=== PATIENT | female | born 1995 | race African-American/Black ===

== ENCOUNTER 2023-01-23 08:19 | Emergency (ER) | payer SELFPAY ==
--- OUTSIDE RECORDS SUMMARY | 2023-01-23 08:25 | XMS REPORT | Continuity of Care Document ---
:1995 Author Organization [facility] t Address [address] [place] [address] Care Team Providers Name Role Phone PCP, PATIENT DOES NOT HAVE A Primary Care Physician Unavaila ble JAQUELINE SINGH Attending Clinician Unavailable JAQUELINE SINGH Attending Clinician Unavailable Nurse, [facility] Attending Clinician Unavailable Coby Adams MD Attending Clinician COBY ADAMS Attending Clinician Unavailable Doctor Unassigned, [place] Attending Clinician Unavailable KOTA NAPIER Attending Clinician Unavailable Marco Antonio Billingsley MD Attending Clinician Kota Napier MD Attending Clinician Watson Daly CRNA Attending Clinician Eliu Villalobos CRNA Attending Clinician Andrea Teixeira MD Attending Clinician JANES HERNANDEZ Attending Clinician Unavailable [facility], [facility] Attending Clinician Unavailable Janes Hernandez PA-C Attending Clinician Walt Khoury MD Attending Clinician , [facility] Attending Clinician Unavailable ISAAC Attending Clinician Unavailable ANDRÉS PERAZA Attending Clinician Unavailable Stu VILLALOBOS, Andrés Sullivan Attending Clinician Ultrasound, [facility] Attending Clinician Unavailable Sybil Woodard MD Attending Clinician SYBIL WOODARD Attending Clinician Unavailable SYBIL WOODARD Attending Clinician Unavailable AKINSIMICHELLE ZAMBRANO Attending Clinician Unavailable Akinsipe WHCNP, Michelle C Attending Clinician [phone], [facility] Attending Clinician Unavailable Dm Mariano MD Attending Clinician WALT KHOURY Attending Clinician Unavailable Tiarra Looney LVN Attending Clinician Kaitlin CRAWFORDPAbhinav Attending Clinician Aman Borden DO Attending Clinician PABLO VILLAGOMEZ Attending Clinician Unavailable Pablo Pugh Attending Clinician Pob, [facility] Attending Clinician Unavailable MACHELLE CELIS Attending Clinician Unavailable Lab, Sergio-chp Attending Clinician Unavailable Machelle Browning Attending Clinician Richard_Sara Attending Clinician Unavailable SHAN LOPEZ Attending Clinician Unavailable Shan Palacio Attending Clinician Tonia Edmondson Attending Clinician Visit, [facility] Attending Clinician Unavailable Yaakov Diaz DO Attending Clinician KOTA NAPIER Admitting Clinician Unavailable Kota Napier MD Admitting Clinician ISAAC Admitting Clinician Unavailable ANDRÉS PERAZA Admitting Clinician Unavailable Andrés Peraza MD Admitting Clinician WALT KHOURY Admitting Clinician Unavailable Walt Khoury MD Admitting Clinician Victor Manuel Admitting Clinician Unavailable Payers Payer Name Policy Type Policy Number Effective Date Expiration Date Juhi KENT [id number] 2016 2019 HEALTH 00:00:00 00:00:00 HEALTHY [place] [id number] 2022 WOMEN 00:00:00 BERNICE KENT [id number] 2016 HEALTH CHIP 00:00:00 [place] - MAINE [id number] 2016 CHILDREN'S STAR 00:00:00 (MEDICAID HMO) Problems Condition Condition Condition Status Onset Resolution Last Treating Co mments Source Name Details Category Date Date Treatment Clinician Date BMI BMI Disease Active Univers 29.0-29.9, 29.0-29.9, 4-16 it y of adult adult 00:00: [place] 00 Medical Branch Encounter Encounter Disease Active Uni vers for for 4-16 ity of initial initial 00:00: [place] prescripti prescripti 00 Me dical on of on of Branch injectable injectable contracept contracept kevin kevin Supervisio Supervisio Disease Active 2021-05 U nivers n of high n of high 0-19 ity of risk risk 00:00: [place] , , 00 Me dical antepartum antepartum Br anch Oligohydra Oligohydra Disease Active 2021-05 U nivers mnios in mnios in 0-19 ity of third third 00:00: [place] trimester trimester 00 Medi victor hugo Branch Liveborn Liveborn Disease Active 2021-05 Unive rs infant, of , of 0-19 it y of escobar escobar 00:00: [place] , , 00 Me dical born in born in [facility] hospital by vaginal by vaginal delivery delivery Vaginal Vaginal Disease Active 2021-05 Univers discharge discharge 0-11 ity of during during 00:00: [place] 00 Medi victor hugo in third in third Branch trimester trimester Boil, Boil, Disease Active 2021-05 Univers groin groin 0-11 ity of 00:00: [place] 00 Medical Branch Noncomplia Noncomplia Disease Active 2021-05 U nivers nt nt 0-10 ity of 00:00: [place] patient in patient in 00 Me dical third third Branch trimester trimester Encounter Encounter Disease Active Uni vers for well for well 9-16 ity of woman exam [place] exam [place] with with 00 Medical routine routine Branch gynecologi gynecologi victor hugo exam victor hugo exam Anemia of Anemia of Disease Active Uni vers mother in mother in 9-16 ity of , , [place] antepartum antepartum 00 Me dical Branch 24 weeks 24 weeks Disease Active Unive rs gestation gestation 7-29 ity of of of 00:00: [place] 00 [facility] Hx of Hx of Disease Active Univers preeclamps preeclamps 7-29 it y of ia, prior [place], prior 00:[place] , , 00 Me dical currently currently Bran ch Seizures Seizures Disease Active Unive rs 4-07 ity of 00:00: [place] [facility] Branch Obesity Obesity Disease Active Univers (BMI (BMI 3-30 ity of 30-39.9) 30-39.9) 00:00: [address] Branch Nausea and Nausea and Disease Active U nivers vomiting vomiting 3-16 ity of during during 00:00: [place] 00 [facility] prior to prior to Branch 22 weeks 22 weeks gestation gestation Supervisio Supervisio Disease Active U nivers n of n of 3-01 ity of high-risk high-risk 00:00[place] 00 [facility] Multiparit Multiparit Disease Active U nivers y y 3-01 ity of 00:00: [place] [address] Medical Branch Lump or Lump or Disease Active Univers mass in mass in 2-07 ity of breast breast 00:00: [place] [address] Medical Branch Other Other Disease Active 2019-0 Univers depression depression 7-15 it y of 00:00: [place] Medical Branch Obesity in Obesity in Disease Active 2020-0 U nivers 7-15 ity of 00:00: [place] [address] Medical Branch Carotidyni Carotidyni Disease Active 2016-05 U nivers a a 2-22 ity of 00:00: [place] [address] Medical Branch Mild Mild Disease Active 2016-05 Overview: Иван martin pre-eclamp pre-eclamp 1-26 Formattin ity of richie in richie in 00:00: g of this [place] third third 00 note Medical trimester trimester might be Br anch different from the original. Without severe features, no meds & no MgSO4 36 weeks 36 weeks Disease Active 2017-1 Unive rs gestation gestation 1-24 ity of of of 00:00: [place] 00 [facility] Allergies, Adverse Reactions, Alerts Allergy Allergy Status Severity Reaction(s) Onset Inactive Treating Comm ents Source Name Type Date Date Clinician NO KNOWN Drug Active Univers ALLERGIE Class ity of S [facility] Social History Social Habit Start Date Stop Date Quantity Comments Source ASSERTION 2021-07-15 [facility] 00:00:00 [facility] History of Cigarette Smoker Universi ty of tobacco use [facility] Alcohol intake 2022-11-27 2022-11-27 Current [facility] 00:00:00 00:00:00 non-drinker of [facility] alcohol (finding) Branch Exposure to 2022-11-16 2022-11-26 Not sure [facility] SARS-CoV-2 00:00:00 11:27:00 [facility] (event) Drain Tobacco Comment 2022-02-08 2022-02-08 pt quit 2019 [facility] ity of 00:00:00 00:00:00 [facility] Tobacco use and 2022-02-08 2022-02-08 Smokeless tobacco Un iversity of exposure 00:00:00 00:00:00 non-user [facility] Sex Assigned At [birth year] Universit y of 00:00:00 00:00:00 [facility] Smoking Status Start Date Stop Date Source Ex-smoker 2022-02-08 00:00:00 2022-02-08 00:00:00 Universi [facility] Medications Ordered Filled Start Stop Current Ordering Indication Dosage Frequency Signature Comments Components Source Medication Medication Date Date Medication? Clinician (SIG) Name Name medroxyPROG 2022- No [id number] 150mg Univers ESTERone 11-27 ity of (DEPO-PROVE 20:00: 19:02 [place] RA) syringe 00 :00 Medical 150 mg Branch medroxyPROG 2022- No [id number] 150mg 150 mg, Univers ESTERone 11-27 Intramuscu ity of (DEPO-PROVE 20:00: 19:02 lar, ONCE, [place] RA) syringe 00 :00 1 dose, On Me dical 150 mg 11/27/22 Branch at 1500, Routine medroxyPROG 2022- No [id number] 150mg Univers ESTERone 09-03 ity of (DEPO-PROVE 20:30: 19:36 [place] RA) 00 :00 Medical injection Branch 150 mg medroxyPROG 2022- No [id number] 150mg 150 mg, Univers ESTERone 09-03 Intramuscu ity of (DEPO-PROVE 20:30: 19:36 lar, ONCE, [place] RA) 00 :00 1 dose, On Medical injection Tue Branch 150 mg 09/03/22 at 1530, Routine medroxyPROG 2022- No [id number] 150mg Univers ESTERone 09-03 ity of (DEPO-PROVE 20:30: 19:36 [place] RA) 00 :00 Medical injection Branch 150 mg medroxyPROG 2022- No [id number] 150mg 150 mg, Univers ESTERone 09-03 Intramuscu ity of (DEPO-PROVE 20:30: 19:36 lar, ONCE, [place] RA) 00 :00 1 dose, On Medical injection Tue Branch 150 mg 09/03/22 at 1530, Routine 2021-05- No 1{capsu Take 1 Uni vers vit 0-21 10-20 le} capsule by ity of no.124/iron 14:40: 00:00 mouth [place] /folic 04 :00 daily. Medical ( Branch VITAMIN ORAL) 2021-05- No 1{capsu Take 1 Uni vers vit 0-21 10-20 le} capsule by ity of no.124/iron 14:40: 00:00 mouth [place] /folic 04 :00 daily. Medical ( Branch VITAMIN ORAL) medroxyPROG 2021-05- No 150mg 150 mg, U nivers ESTERone 0-21 10-21 Intramuscu ity of (DEPO-PROVE 13:45: 13:32 lar, ONCE, [place] RA) 00 :00 1 dose, On Medical injection Fri Branch 150 mg 03/15/22 at 0845, Routine NIFEdipine 2021-05 Yes 30mg 30 mg, Unive rs ER tablet 0-20 Oral, Q24H ity of 30 mg 12:45: ABX, First dose on Medical [place] Branch 03/14/22 at 0745, Until Discontinu ed, Routine rho(D) 2021-05 Yes 300ug 300 mcg, Univer s immune 0-20 Intramuscu ity of globulin 00:14: lar, ONCE, [place] (RHOGAM) 10 For 1 Medical syringe 300 dose, Branch mcg Conditiona l, Routine witch Nicholas 2021-05 Yes Topical, Un marybeth (TUCKS) 50 0-20 Q4HPRN, ity of % topical 00:14: [place] pad 03 on Fri Medical 03/13/22 Branch at 1914, Until Discontinu ed, Routine, Pain (scale 1-3), Pain (scale 4-6) HYDROcodone 2021-05 Yes 1{tbl} 1 tablet, Univers -acetaminop 0-20 Oral, ity of hen (NORCO 00:14: Q6HPRN, [place] 5) 5-325 mg 02 Starting Medi vict[place] hugo tablet 1 on Fri Branch tablet 03/13/22 at 1914, Until Discontinu ed, Routine, Pain (scale 7-10) ibuprofen 2021-05 Yes 600mg 600 mg, Univ ers (IBU) 0-20 Oral, ity of tablet 600 00:14: Q6HPRN, [place] mg 02 Starting Medical on Fri Branch 03/13/22 at 1914, Until Discontinu ed, Routine, Pain (scale 4-6) acetaminoph 2021-05 Yes 650mg 650 mg, Un m[place] en 0-20 Oral, ity of (TYLENOL) 00:14: Q6HPRN, [place] tablet 650 02 Starting Medic al mg on Fri Branch 03/13/22 at 1914, Until Discontinu ed, Routine, Pain (scale 1-3) diphenhydrA 2021-05 Yes 25mg 25 mg, Univ ers MINE 0-20 Oral, ity of (BENADRYL) 00:14: Q6HPRN, [place] tablet 25 02 Starting Medica l mg on Fri Branch 03/13/22 at 1914, Until Discontinu ed, Routine, Sleep, Itching ondansetron 2021-05 Yes 4mg 4 mg, Slow Univers (ZOFRAN 0-20 IV Push, ity of (PF)) 00:14: Q8HPRN, [place] injection 4 02 Starting Medi vict[place] hugo mg on Fri Branch 03/13/22 at 1913, Until Discontinu ed, Routine, Nausea and Vomiting (N/V) simethicone 2021-05 Yes 160mg 160 mg, Un [place] (GAS RELIEF 0-20 Oral, ity of (SIMETHICON 00:14: PC+HSPRN, [place] E)) 02 Starting Medical chewable on Fri Branch tablet 160 03/13/22 mg at 1913, Until Discontinu ed, Routine, Gas docusate 2021-05 Yes 200mg 200 mg, Unive rs (COLACE) 0-20 Oral, ity of capsule 200 00:14: QDAILYPRN, [place] mg 02 Starting Medical on Fri Branch 03/13/22 at 1913, Until Discontinu ed, Routine, Constipati on magnesium 2021-05 Yes 30mL 30 mL, Univer s hydroxide 0-20 Oral, ity of (MILK OF 00:14: QDAILYPRN, [place] MAGNESIA) 02 Starting Medica l 400 mg/5 mL on Fri Branch suspension 03/13/22 30 mL at 1913, Until Discontinu ed, Routine, Constipati on benzocaine- 2021-05 Yes Topical, Un [place] menthol 0-20 PRN, ity of (DERMOPLAST 00:14: Starting [place] ) 20-0.5 % 02 on Fri Medical topical 03/13/22 Branch spray at 1913, Until Discontinu ed, Routine, Perineum discomfort NIFEdipine 2021-05 Yes [id number] 30mg Take 1 U nivers ER 30 mg 0-20 tablet by ity of tablet 00:00: mouth [place] 00 every 24 Medical (twenty-fo Branch ur) hours. 2021-05 Yes [id number] 1{tbl} Take 1 U nivers vitamin 0-20 tablet by ity of w/FA tablet 00:00: mouth in [place] 00 the Medical morning. Branch docusate 2021-05 Yes [id number] 200mg Take 2 Un m[place]beth 100 mg 0-20 capsules ity of capsule 00:00: by mouth [place] 00 once daily Medical as needed Branch for Constipati on. ferrous 2021-05 Yes [id number] 325mg Take 1 Uni vers sulfate 325 0-20 tablet by ity of mg (65 mg 00:00: mouth [place] iron) 00 the Medical tablet morning Branch and 1 tablet in the evening. ibuprofen 2021-05 Yes [id number] 600mg Take 1 U nivers 600 mg 0-20 tablet by ity of tablet 00:00: mouth [place] 00 every 6 Medical (six) Branch hours as needed (Pain). Take with food or milk. NIFEdipine 2021-05 Yes [id number] 30mg Take 1 U nivers ER 30 mg 0-20 tablet by ity of tablet 00:00: mouth [place] 00 every 24 Medical (twenty-fo Branch ur) hours. 2021-05 Yes [id number] 1{tbl} Take 1 U nivers vitamin 0-20 tablet by ity of w/FA tablet 00:00: mouth in [place] 00 the Medical morning. Branch docusate 2021-05 Yes [id number] 200mg Take 2 Un marybeth 100 mg 0-20 capsules ity of capsule 00:00: by mouth [place] 00 once daily Medical as needed Branch for Constipati on. ferrous 2021-05 Yes [id number] 325mg Take 1 Uni vers sulfate 325 0-20 tablet by ity of mg (65 mg 00:00: mouth [place] iron) 00 the Medical tablet morning Branch and 1 tablet in the evening. ibuprofen 2021-05 Yes [id number] 600mg Take 1 U nivers 600 mg 0-20 tablet by ity of tablet 00:00: mouth [place] 00 every 6 Medical (six) Branch hours as needed (Pain). Take with food or milk. NIFEdipine 2021-05 Yes [id number] 30mg Take 1 U nivers ER 30 mg 0-20 tablet by ity of tablet 00:00: mouth [place] 00 every 24 Medical (twenty-fo Branch ur) hours. 2021-05 Yes [id number] 1{tbl} Take 1 U nivers vitamin 0-20 tablet by ity of w/FA tablet 00:00: mouth in [place] 00 the Medical morning. Branch docusate 2021-05 Yes [id number] 200mg Take 2 Un mary[place] 100 mg 0-20 capsules ity of capsule 00:00: by mouth [place] 00 once daily Medical as needed Branch for Constipati on. ferrous 2021-05 Yes [id number] 325mg Take 1 Uni vers sulfate 325 0-20 tablet by ity of mg (65 mg 00:00: mouth [place] iron) 00 the Medical tablet morning Branch and 1 tablet in the evening. ibuprofen 2021-05 Yes [id number] 600mg Take 1 U nivers 600 mg 0-20 tablet by ity of tablet 00:00: mouth [place] 00 every 6 Medical (six) Branch hours as needed (Pain). Take with food or milk. NIFEdipine 2021-05 Yes [id number] 30mg Take 1 U nivers ER 30 mg 0-20 tablet by ity of tablet 00:00: mouth [place] 00 every 24 Medical (twenty-fo Branch ur) hours. 2021-05 Yes [id number] 1{tbl} Take 1 U nivers vitamin 0-20 tablet by ity of w/FA tablet 00:00: mouth in [place] 00 the Medical morning. Branch docusate 2021-05 Yes [id number] 200mg Take 2 Un m[place] 100 mg 0-20 capsules ity of capsule 00:00: by mouth [place] 00 once daily Medical as needed Branch for Constipati on. ferrous 2021-05 Yes [id number] 325mg Take 1 Uni vers sulfate 325 0-20 tablet by ity of mg (65 mg 00:00: mouth [place] iron) 00 the Medical tablet morning Branch and 1 tablet in the evening. ibuprofen 2021-05 Yes [id number] 600mg Take 1 U nivers 600 mg 0-20 tablet by ity of tablet 00:00: mouth [place] 00 every 6 Medical (six) Branch hours as needed (Pain). Take with food or milk. NIFEdipine 2021-05 Yes [id number] 30mg Take 1 U nivers ER 30 mg 0-20 tablet by ity of tablet 00:00: mouth [place] 00 every 24 Medical (twenty-fo Branch ur) hours. 2021-05 Yes [id number] 1{tbl} Take 1 U nivers vitamin 0-20 tablet by ity of w/FA tablet 00:00: mouth in [place] 00 the Medical morning. Branch docusate 2021-05 Yes [id number] 200mg Take 2 Un m[place] 100 mg 0-20 capsules ity of capsule 00:00: by mouth [place] 00 once daily Medical as needed Branch for Constipati on. ferrous 2021-05 Yes [id number] 325mg Take 1 Uni vers sulfate 325 0-20 tablet by ity of mg (65 mg 00:00: mouth [place] iron) 00 the Medical tablet morning Branch and 1 tablet in the evening. ibuprofen 2021-05 Yes [id number] 600mg Take 1 U nivers 600 mg 0-20 tablet by ity of tablet 00:00: mouth [place] 00 every 6 Medical (six) Branch hours as needed (Pain). Take with food or milk. NIFEdipine 2021-05 Yes [id number] 30mg Take 1 U nivers ER 30 mg 0-20 tablet by ity of tablet 00:00: mouth [place] 00 every 24 Medical (twenty-fo Branch ur) hours. 2021-05 Yes [id number] 1{tbl} Take 1 U nivers vitamin 0-20 tablet by ity of w/FA tablet 00:00: mouth in [place] 00 the Medical morning. Branch docusate 2021-05 Yes [id number] 200mg Take 2 Un m[place] 100 mg 0-20 capsules ity of capsule 00:00: by mouth [place] 00 once daily Medical as needed Branch for Constipati on. ferrous 2021-05 Yes [id number] 325mg Take 1 Uni vers sulfate 325 0-20 tablet by ity of mg (65 mg 00:00: mouth [place] iron) 00 the Medical tablet morning Branch and 1 tablet in the evening. ibuprofen 2021-05 Yes [id number] 600mg Take 1 U nivers 600 mg 0-20 tablet by ity of tablet 00:00: mouth [place] 00 every 6 Medical (six) Branch hours as needed (Pain). Take with food or milk. famotidine 2021-05- No 20mg 20 mg, Univ ers (PEPCID AC) 0-19 10-20 Oral, Q12H i ty of tablet 20 21:45: 00:14 ABX, First [place] mg 00 :08 dose on Wed Branch 03/13/22 at 1645, Until Discontinu ed, Routine PIB 2021-05- No Epidural, Univers fentaNYL-ro 0-19 10-20 ONCE INTRA i ty of pivacaine 2 21:30: 01:09 PROCEDURE, [place] mcg/mL-0.1 00 :24 Starting Medic al % (PF) in on Fri Branch NS 200 mL 03/13/22 epidural at 1630, infusion Until Wed RTU 03/13/22 at 2009, Routine, Intra-op PIB 2021-05- No Epidural, Univers fentaNYL-ro 0-19 10-20 ONCE INTRA i ty of pivacaine 2 21:30: 01:09 PROCEDURE, [place] mcg/mL-0.1 00 :24 Starting Medic al % (PF) in on Fri Branch NS 200 mL 03/13/22 epidural at 1630, infusion Until Fri RTU 03/13/22 at 2008, Routine, Intra-op lidocaine-e 2021-05- No Epidural, Univers pinephrine 0-19 10-20 ONCE INTRA it y of (XYLOCAINE 21:29: 01:09 PROCEDURE, [place] W/EPINEPHRI 00 :24 Starting Medi victor hugo NE) 1.5 on Wed Branch %-1:200,000 03/13/22 injection at 1629, Until Fri03/13/22 at 2008, Routine, Intra-op lidocaine-e 2021-05- No Epidural, Univers pinephrine 0-19 10-20 ONCE INTRA it y of (XYLOCAINE 21:29: 01:09 PROCEDURE, [place] W/EPINEPHRI 00 :24 Starting Medi victor hugo NE) 1.5 on Fri Branch %-1:200,000 03/13/22 injection at 1629, Until Fri03/13/22 at 2008, Routine, Intra-op lidocaine 2021-05- No Infiltrati U nivers 1% 0-19 10-20 on, ONCE ity of (XYLOCAINE) 21:26: 01:09 INTRA [place] 100 mg/10 00 :24 PROCEDURE, Medi [place] mL (1 %) Starting Branch injection on Fri03/13/22 at 1626, Until Fri03/13/22 at 2008, Routine, Intra-op lidocaine 2021-05- No Infiltrati U nivers 1% 0-19 10-20 on, ONCE ity of (XYLOCAINE) 21:26: 01:09 INTRA [place] 100 mg/10 00 :24 PROCEDURE, Medi [place] hug[place] mL (1 %) Starting Branch injection on Fri03/13/22 at 1626, Until Fri03/13/22 at 2008, Routine, Intra-op oxytocin 2021-05- No 2mU/min at 2-40 Un marybeth (PITOCIN) 0-19 10-20 mL/hr, IV ity of 30 units in 20:21: 00:14 Infusion, [place] NS 500 mL 48 :08 TITRATE, Medica l IV infusion Starting Bran ch on Fri03/13/22 at 1521, Until Fri03/13/22 at 1914, ERASTO lactated 2021-05- No 500mL at 999 Unive rs ringers IV 0-19 10-19 mL/hr, 500 it y of infusion 20:15: 20:48 mL, IV [place] 500 mL 00 :00 Infusion, Medical ONCE, 1 Branch dose, On Fri03/13/22 at 1515, Routine levETIRAcet 2021-05- No 750mg 750 mg, U nivers am (KEPPRA) 0-19 10-20 Oral, Q12H i ty of tablet 750 20:00: 00:14 ABX, First [place] mg 00 :08 dose on Medical Wed Branch 03/13/22 at 1500, Until Discontinu ed, Routine 2021-05 Yes 1{capsu Take 1 Univ ers vit 0-19 le} capsule by ity of no.124/iron 18:35: mouth [place] /folic 33 daily. Medical ( Branch VITAMIN ORAL) 2021-05 Yes 1{capsu Take 1 Univ ers vit 0-19 le} capsule by ity of no.124/iron 18:35: mouth [place] /folic 33 daily. Medical ( Branch VITAMIN ORAL) D5W-LR IV 2021-05- No 1000mL at 125 Uni vers infusion 0-19 10-20 mL/hr, IV ity o f 1,000 mL 14:44: 00:14 Infusion, [place] 00 :08 CONTINUOUS Medical , Starting Branch on Fri03/13/22 at 0945, Until Fri03/13/22 at 1914, Routine NaCl 0.9% 2021-05- No 500mL at 999 Univ ers (NS) bolus 0-19 10-19 mL/hr, 500 it y of infusion 12:38: 12:58 mL, IV [place] 500 mL 00 :00 Infusion, Medical ONCE, 1 Branch dose, On Fri03/13/22 at 0745, ERASTO sulfamethox 2021- No [id number] 1{tbl} Take 1 Univers azole-trime 9-30 10-06 tablet by it y of thoprim 00:00: 04:59 mouth in [place] (BACTRIM 00 :00 the Medical DS) 800-160 morning Branc h mg per and 1 tablet tablet in the evening. Do all this for 5 days. polycarboph Yes [id number] 625mg Take 1 Univers il 9-16 tablet by ity of (FIBERCON) 00:00: mouth in [place] 625 mg 00 the Medical tablet morning. Branch ascorbic 2021-0 Yes [id number] 500mg Take 1 U nivers acid, 9-16 tablet by ity of vitamin C, 00:00: mouth in [place] 500 mg 00 the Medical tablet morning. Branch ferrous 2021-0 Yes [id number] 325mg Take 1 Un [place] sulfate 9-16 tablet by ity of (IRON, 00:00: mouth in [place] FERROUS 00 the Medical SULFATE,) morning Branch 325 mg (65 and 1 mg iron) tablet in tablet the evening. docusate 2021-0 Yes [id number] 100mg Take 1 U nivers (COLACE) 9-16 capsule by ity o f 100 mg 00:00: mouth once [place] capsule 00 daily as Medical needed for Branch Constipati on. polycarboph Yes [id number] 625mg Take 1 Univers il 9-16 tablet by ity of (FIBERCON) 00:00: mouth in [place] 625 mg 00 the Medical tablet morning. Branch ascorbic 2021-0 Yes [id number] 500mg Take 1 U nivers acid, 9-16 tablet by ity of vitamin C, 00:00: mouth in [place] 500 mg 00 the Medical tablet morning. Branch ferrous 2021-0 Yes [id number] 325mg Take 1 Un [place] sulfate 9-16 tablet by ity of (IRON, 00:00: mouth in [place] FERROUS 00 the Medical SULFATE,) morning Branch 325 mg (65 and 1 mg iron) tablet in tablet the evening. docusate 2021-0 Yes [id number] 100mg Take 1 U nivers (COLACE) 9-16 capsule by ity o f 100 mg 00:00: mouth once [place] capsule 00 daily as Medical needed for Branch Constipati on. polycarboph 2021-0 Yes [id number] 625mg Take 1 Univers il 9-16 tablet by ity of (FIBERCON) 00:00: mouth in [place] 625 mg 00 the Medical tablet morning. Branch ascorbic 2021-0 Yes [id number] 500mg Take 1 U nivers acid, 9-16 tablet by ity of vitamin C, 00:00: mouth in [place] 500 mg 00 the Medical tablet morning. Branch ferrous 2021-0 Yes [id number] 325mg Take 1 Un [place] sulfate 9-16 tablet by ity of (IRON, 00:00: mouth in [place] FERROUS 00 the Medical SULFATE,) morning Branch 325 mg (65 and 1 mg iron) tablet in tablet the evening. docusate 2021-0 Yes [id number] 100mg Take 1 U nivers (COLACE) 9-16 capsule by ity o f 100 mg 00:00: mouth once [place] capsule 00 daily as Medical needed for Branch Constipati on. polycarboph 2021-0 Yes [id number] 625mg Take 1 Univers il 9-16 tablet by ity of (FIBERCON) 00:00: mouth in [place] 625 mg 00 the Medical tablet morning. Branch ascorbic 2021-0 Yes [id number] 500mg Take 1 U nivers acid, 9-16 tablet by ity of vitamin C, 00:00: mouth in [place] 500 mg 00 the Medical tablet morning. Branch ferrous 2021-0 Yes [id number] 325mg Take 1 Un [place] sulfate 9-16 tablet by ity of (IRON, 00:00: mouth in [place] FERROUS 00 the Medical SULFATE,) morning Branch 325 mg (65 and 1 mg iron) tablet in tablet the evening. docusate 0 Yes [id number] 100mg Take 1 U nivers (COLACE) 9-16 capsule by ity o f 100 mg 00:00: mouth once [place] capsule 00 daily as Medical needed for Branch Constipati on. polycarboph 2021-0 Yes [id number] 625mg Take 1 Univers il 9-16 tablet by ity of (FIBERCON) 00:00: mouth in [place] 625 mg 00 the Medical tablet morning. Branch ascorbic 2021-0 Yes [id number] 500mg Take 1 U nivers acid, 9-16 tablet by ity of vitamin C, 00:00: mouth in [place] as 500 mg 00 the Medical tablet morning. Branch ferrous 2021-0 Yes [id number] 325mg Take 1 Un marybeth sulfate 9-16 tablet by [facility]y of (IRON, 00:00: mouth in [place] FERROUS 00 the Medical SULFATE,) morning Branch 325 mg (65 and 1 mg iron) tablet in tablet the evening. docusate 2021-0 Yes [id number] 100mg Take 1 U nivers (COLACE) 9-16 capsule by ity o f 100 mg 00:00: mouth once [place] capsule 00 daily as Medical needed for Branch Constipati on. polycarboph 2021-0 Yes [id number] 625mg Take 1 [facility] 9-16 tablet by ity of (FIBERCON) 00:00: mouth in [place] as 625 mg 00 the Medical tablet morning. Branch ascorbic 2021-0 Yes [id number] 500mg Take 1 U nivers acid, 9-16 tablet by ity of vitamin C, 00:00: mouth in [place] as 500 mg 00 the Medical tablet morning. Branch ferrous 2021-0 Yes [id number] 325mg Take 1 Un marybeth sulfate 9-16 tablet by ity of (IRON, 00:00: mouth in [place] FERROUS 00 the Medical SULFATE,) morning Branch 325 mg (65 and 1 mg iron) tablet in tablet the evening. docusate 2021-0 Yes [id number] 100mg Take 1 U nivers (COLACE) 9-16 capsule by ity o f 100 mg 00:00: mouth once [place] capsule 00 daily as Medical needed for Branch Constipati on. polycarboph 2021-0 Yes [id number] 625mg Take 1 [facility] 9-16 tablet by ity of (FIBERCON) 00:00: mouth in [place] as 625 mg 00 the Medical tablet morning. Branch ascorbic 2021-0 Yes [id number] 500mg Take 1 U nivers acid, 9-16 tablet by ity of vitamin C, 00:00: mouth in [place] as 500 mg 00 the Medical tablet morning. Branch ferrous 2021-0 Yes [id number] 325mg Take 1 Un marybeth sulfate 9-16 tablet by ity of (IRON, 00:00: mouth in [place] FERROUS 00 the Medical SULFATE,) morning Branch 325 mg (65 and 1 mg iron) tablet in tablet the evening. docusate 2021-0 Yes [id number] 100mg Take 1 U nivers (COLACE) 9-16 capsule by ity o f 100 mg 00:00: mouth once [place] capsule 00 daily as Medical needed for Branch Constipati on. polycarboph 2021-0 Yes [id number] 625mg Take 1 [facility] 9-16 tablet by ity of (FIBERCON) 00:00: mouth in [place] as 625 mg 00 the Medical tablet morning. Branch ascorbic 2021-0 Yes [id number] 500mg Take 1 U nivers acid, 9-16 tablet by ity of vitamin C, 00:00: mouth in [place] as 500 mg 00 the Medical tablet morning. Branch ferrous 2021-0 Yes [id number] 325mg Take 1 Un marybeth sulfate 9-16 tablet by ity of (IRON, 00:00: mouth in [place] FERROUS 00 the Medical SULFATE,) morning Branch 325 mg (65 and 1 mg iron) tablet in tablet the evening. docusate 2021-0 Yes [id number] 100mg Take 1 U nivers (COLACE) 9-16 capsule by ity o f 100 mg 00:00: mouth once [place] capsule 00 daily as Medical needed for Branch Constipati on. polycarboph 0 Yes [id number] 625mg Take 1 [facility] 9-16 tablet by ity of (FIBERCON) 00:00: mouth in [place] as 625 mg 00 the Medical tablet morning. Branch ascorbic 0 Yes [id number] 500mg Take 1 U nivers acid, 9-16 tablet by ity of vitamin C, 00:00: mouth in [place] as 500 mg 00 the Medical tablet morning. Branch ferrous 2021-0 Yes [id number] 325mg Take 1 Un marybeth sulfate 9-16 tablet by ity of (IRON, 00:00: mouth in [place] FERROUS 00 the Medical SULFATE,) morning Branch 325 mg (65 and 1 mg iron) tablet in tablet the evening. docusate 0 Yes [id number] 100mg Take 1 U nivers (COLACE) 9-16 capsule by ity o f 100 mg 00:00: mouth once [place] capsule 00 daily as Medical needed for Branch Constipati on. polycarboph 2021-0 Yes [id number] 625mg Take 1 [facility] 9-16 tablet by ity of (FIBERCON) 00:00: mouth in [place] as 625 mg 00 the Medical tablet morning. Branch ascorbic 2021-0 Yes [id number] 500mg Take 1 [facility] nivers acid, 9-16 tablet by ity of vitamin C, 00:00: mouth in [place] as 500 mg 00 the Medical tablet morning. Branch ferrous 2021-0 Yes [id number] 325mg Take 1 Un marybeth sulfate 9-16 tablet by ity of (IRON, 00:00: mouth in [place] FERROUS 00 the Medical SULFATE,) morning Branch 325 mg (65 and 1 mg iron) tablet in tablet the evening. docusate 2021-0 Yes [id number] 100mg Take 1 [facility] nivers (COLACE) 9-16 capsule by ity o f 100 mg 00:00: mouth once [place] capsule 00 daily as Medical needed for Branch Constipati on. polycarboph 2021-0 Yes [id number] 625mg Take 1 [facility] 9-16 tablet by ity of (FIBERCON) 00:00: mouth in [place] as 625 mg 00 the Medical tablet morning. Branch ascorbic 2021-0 Yes [id number] 500mg Take 1 [facility] nivers acid, 9-16 tablet by ity of vitamin C, 00:00: mouth in [place] as 500 mg 00 the Medical tablet morning. Branch polycarboph 2021-0 Yes [id number] 625mg Take 1 [facility] 9-16 tablet by ity of (FIBERCON) 00:00: mouth in [place] as 625 mg 00 the Medical tablet morning. Branch ascorbic 2021-0 Yes [id number] 500mg Take 1 [facility] nivers acid, 9-16 tablet by ity of vitamin C, 00:00: mouth in [place] as 500 mg 00 the Medical tablet morning. Branch polycarboph 2021-0 Yes [id number] 625mg Take 1 [facility] 9-16 tablet by ity of (FIBERCON) 00:00: mouth in [place] as 625 mg 00 the Medical tablet morning. Branch ascorbic 2021-0 Yes [id number] 500mg Take 1 [facility] nivers acid, 9-16 tablet by ity of vitamin C, 00:00: mouth in [place] as 500 mg 00 the Medical tablet morning. Branch polycarboph 2021-0 Yes [id number] 625mg Take 1 [facility] 9-16 tablet by ity of (FIBERCON) 00:00: mouth in [place] as 625 mg 00 the Medical tablet morning. Branch ascorbic 2021-0 Yes [id number] 500mg Take 1 [facility] nivers acid, 9-16 tablet by ity of vitamin C, 00:00: mouth in [place] as 500 mg 00 the Medical tablet morning. Branch polycarboph 2021-0 Yes [id number] 625mg Take 1 [facility] 9-16 tablet by ity of (FIBERCON) 00:00: mouth in [place] as 625 mg 00 the Medical tablet morning. Branch ascorbic 2021-0 Yes [id number] 500mg Take 1 [facility] nivers acid, 9-16 tablet by ity of vitamin C, 00:00: mouth in [place] as 500 mg 00 the Medical tablet morning. Branch polycarboph 2021-0 Yes [id number] 625mg Take 1 [facility] 9-16 tablet by ity of (FIBERCON) 00:00: mouth in [place] as 625 mg 00 the Medical tablet morning. Branch ascorbic Yes [id number] 500mg Take 1 [facility] nivers acid, 9-16 tablet by ity of vitamin C, 00:00: mouth in [place] as 500 mg 00 the Medical tablet morning. Branch polycarboph Yes [id number] 625mg Take 1 [facility] 9-16 tablet by ity of (FIBERCON) 00:00: mouth in [place] as 625 mg 00 the Medical tablet morning. Branch ascorbic Yes [id number] 500mg Take 1 [facility] nivers acid, 9-16 tablet by ity of vitamin C, 00:00: mouth in [place] as 500 mg 00 the Medical tablet morning. Branch polycarboph Yes [id number] 625mg Take 1 [facility] 9-16 tablet by ity of (FIBERCON) 00:00: mouth in [place] as 625 mg 00 the Medical tablet morning. Branch ascorbic Yes [id number] 500mg Take 1 [facility] nivers acid, 9-16 tablet by ity of vitamin C, 00:00: mouth in [place] as 500 mg 00 the Medical tablet morning. Branch ferrous 2021- No [id number] 325mg Take 1 [facility] nivers sulfate 9-16 10-20 tablet by ity of (IRON, 00:00: 00:00 mouth in [place] FERROUS 00 :00 the Medical SULFATE,) morning Branch 325 mg (65 and 1 mg iron) tablet in tablet the evening. docusate 2021- No [id number] 100mg Take 1 [facility] (COLACE) 9-16 10-20 capsule by [facility]y of 100 mg 00:00: 00:00 mouth [place] capsule 00 :00 daily as Medical needed for Branch Constipati on. ferrous 2021- No [id number] 325mg Take 1 U nivers sulfate 9-16 10-20 tablet by ity of (IRON, 00:00: 00:00 mouth in [place] FERROUS 00 :00 the Medical SULFATE,) morning Branch 325 mg (65 and 1 mg iron) tablet in tablet the evening. docusate 2021- No [id number] 100mg Take 1 [facility] (COLACE) 9-16 10-20 capsule by ity of 100 mg 00:00: 00:00 mouth [place] capsule 00 :00 daily as Medical needed for Branch Constipati on. levETIRAcet 2-0 Yes [id number] 750mg Take 1 [facility] am 750 mg 7-30 tablet by ity o f tablet 00:00: mouth in [place] 00 the Medical morning Branch and 1 tablet in the evening. levETIRAcet 2-0 Yes [id number] 500mg Take 1 [facility] am 500 mg 7-30 tablet by ity o f tablet 00:00: mouth in [place] 00 the Medical morning Branch and 1 tablet in the evening. lamoTRIgine 2-0 Yes [id number] 25mg Take 1 [facility] 25 mg 7-30 tablet by ity of tablet 00:00: mouth in [place] 00 the Medical morning. Branch levETIRAcet 2021-0 Yes [id number] 750mg Take 1 [facility] am 750 mg 7-30 tablet by ity o f tablet 00:00: mouth in [place] 00 the Medical morning Branch and 1 tablet in the evening. levETIRAcet 2-0 Yes [id number] 500mg Take 1 [facility] am 500 mg 7-30 tablet by ity o f tablet 00:00: mouth in [place] 00 the Medical morning Branch and 1 tablet in the evening. lamoTRIgine 2-0 Yes [id number] 25mg Take 1 [facility] 25 mg 7-30 tablet by ity of tablet 00:00: mouth in [place] 00 the Medical morning. Branch levETIRAcet 2-0 Yes [id number] 750mg Take 1 [facility] am 750 mg 7-30 tablet by ity o f tablet 00:00: mouth in [place] 00 the Medical morning Branch and 1 tablet in the evening. levETIRAcet 2-0 Yes [id number] 500mg Take 1 [facility] am 500 mg 7-30 tablet by ity o f tablet 00:00: mouth in [place] 00 the Medical morning Branch and 1 tablet in the evening. lamoTRIgine 2-0 Yes [id number] 25mg Take 1 [facility] 25 mg 7-30 tablet by ity of tablet 00:00: mouth in [place] 00 the Medical morning. Branch levETIRAcet 2-0 Yes [id number] 750mg Take 1 [facility] am 750 mg 7-30 tablet by ity o f tablet 00:00: mouth in [place] 00 the Medical morning Branch and 1 tablet in the evening. levETIRAcet 2022-0 Yes [id number] 500mg Take 1 [facility] am 500 mg 7-30 tablet by ity o f tablet 00:00: mouth in [place] 00 the Medical morning Branch and 1 tablet in the evening. lamoTRIgine 2022-0 Yes [id number] 25mg Take 1 [facility] 25 mg 7-30 tablet by ity of tablet 00:00: mouth in [place] 00 the Medical morning. Branch levETIRAcet 2-0 Yes [id number] 750mg Take 1 [facility] am 750 mg 7-30 tablet by ity o f tablet 00:00: mouth in [place] 00 the Medical morning Branch and 1 tablet in the evening. levETIRAcet 2-0 Yes [id number] 500mg Take 1 [facility] am 500 mg 7-30 tablet by ity o f tablet 00:00: mouth in [place] 00 the Medical morning Branch and 1 tablet in the evening. lamoTRIgine 2-0 Yes [id number] 25mg Take 1 [facility] 25 mg 7-30 tablet by ity of tablet 00:00: mouth in [place] 00 the Medical morning. Branch levETIRAcet 2-0 Yes [id number] 750mg Take 1 [facility] am 750 mg 7-30 tablet by ity o f tablet 00:00: mouth in [place] 00 the Medical morning Branch and 1 tablet in the evening. levETIRAcet 2-0 Yes [id number] 500mg Take 1 [facility] am 500 mg 7-30 tablet by ity o f tablet 00:00: mouth in [place] 00 the Medical morning Branch and 1 tablet in the evening. lamoTRIgine 2-0 Yes [id number] 25mg Take 1 [facility] 25 mg 7-30 tablet by ity of tablet 00:00: mouth in [place] 00 the Medical morning. Branch levETIRAcet 2-0 Yes [id number] 750mg Take 1 [facility] am 750 mg 7-30 tablet by ity o f tablet 00:00: mouth in [place] 00 the Medical morning Branch and 1 tablet in the evening. levETIRAcet 2022-0 Yes [id number] 500mg Take 1 [facility] am 500 mg 7-30 tablet by ity o f tablet 00:00: mouth in [place] [address] the Medical morning Branch and 1 tablet in the evening. lamoTRIgine 2022-0 Yes [id number] 25mg Take 1 [facility] 25 mg 7-30 tablet by ity of tablet 00:00: mouth in [place] 00 the Medical morning. Branch levETIRAcet 2-0 Yes [id number] 750mg Take 1 [facility] am 750 mg 7-30 tablet by ity o f tablet 00:00: mouth in [place] 00 the Medical morning Branch and 1 tablet in the evening. levETIRAcet 2-0 Yes [id number] 500mg Take 1 [facility] am 500 mg 7-30 tablet by ity o f tablet 00:00: mouth in [place] 00 the Medical morning Branch and 1 tablet in the evening. lamoTRIgine 2-0 Yes [id number] 25mg Take 1 [facility] 25 mg 7-30 tablet by ity of tablet 00:00: mouth in [place] 00 the Medical morning. Branch levETIRAcet 2-0 Yes [id number] 750mg Take 1 [facility] am 750 mg 7-30 tablet by ity o f tablet 00:00: mouth in [place] 00 the Medical morning Branch and 1 tablet in the evening. levETIRAcet 2-0 Yes [id number] 500mg Take 1 [facility] am 500 mg 7-30 tablet by ity o f tablet 00:00: mouth in [place] 00 the Medical morning Branch and 1 tablet in the evening. lamoTRIgine 2-0 Yes [id number] 25mg Take 1 [facility] 25 mg 7-30 tablet by ity of tablet 00:00: mouth in [place] the Medical morning. Branch levETIRAcet 2-0 Yes [id number] 750mg Take 1 [facility] am 750 mg 7-30 tablet by ity o f tablet 00:00: mouth in [place] the Medical morning Branch and 1 tablet in the evening. levETIRAcet 2-0 Yes [id number] 500mg Take 1 [facility] am 500 mg 7-30 tablet by ity o f tablet 00:00: mouth in [place] 00 the Medical morning Branch and 1 tablet in the evening. lamoTRIgine 2-0 Yes [id number] 25mg Take 1 [facility] 25 mg 7-30 tablet by ity of tablet 00:00: mouth in [place] 00 the Medical morning. Branch levETIRAcet 2-0 Yes [id number] 750mg Take 1 [facility] am 750 mg 7-30 tablet by ity o f tablet 00:00: mouth in [place] 00 the Medical morning Branch and 1 tablet in the evening. levETIRAcet 2-0 Yes [id number] 500mg Take 1 [facility] am 500 mg 7-30 tablet by ity o f tablet 00:00: mouth in [place] 00 the [facility] morning Branch and 1 tablet in the evening. lamoTRIgine 2021-0 Yes [id number] 25mg Take 1 [facility] 25 mg 7-30 tablet by ity of tablet 00:00: mouth in [place] [address] the [facility]. Branch levETIRAcet 2021-0 Yes [id number] 750mg Take 1 [facility] am 750 mg 7-30 tablet by ity o f tablet 00:00: mouth in [place] 00 the [facility] morning Branch and 1 tablet in the evening. levETIRAcet 2021-0 Yes [id number] 750mg Take 1 [facility] am 750 mg 7-30 tablet by ity o f tablet 00:00: mouth in [place] [address] the [facility] morning Branch and 1 tablet in the evening. levETIRAcet 2021-0 Yes [id number] 750mg Take 1 [facility] am 750 mg 7-30 tablet by ity o f tablet 00:00: mouth in [place] [address] the [facility] morning Drain and 1 tablet in the evening. levETIRAcet 2021-0 Yes [id number] 750mg Take 1 [facility] am 750 mg 7-30 tablet by ity o f tablet 00:00: mouth in [place] [address] the [facility] morning Drain and 1 tablet in the evening. levETIRAcet 2021-0 Yes [id number] 750mg Take 1 [facility] am 750 mg 7-30 tablet by ity o f tablet 00:00: mouth in [place] [address] the [facility] morning Drain and 1 tablet in the evening. levETIRAcet 2021-0 Yes [id number] 750mg Take 1 [facility] am 750 mg 7-30 tablet by ity o f tablet 00:00: mouth in [place] [address] the [facility] morning Branch and 1 tablet in the evening. levETIRAcet 2021-0 Yes [id number] 750mg Take 1 [facility] am 750 mg 7-30 tablet by ity o f tablet 00:00: mouth in [place] [address] the [facility] morning Drain and 1 tablet in the evening. levETIRAcet 2021-0 Yes [id number] 750mg Take 1 [facility] am 750 mg 7-30 tablet by ity o f tablet 00:00: mouth in [place] [address] the [facility] morning Drain and 1 tablet in the evening. levETIRAcet 2-0 2022- No [id number] 500mg Take 1 [facility] am 500 mg 7-30 10-20 tablet by ity of tablet 00:00: 00:00 mouth in [place] 00 :00 the Medical morning Branch and 1 tablet in the evening. lamoTRIgine 2021- No [id number] 25mg Take 1 [facility] 25 mg 7-30 10-20 tablet by ity of tablet 00:00: 00:00 mouth in [place] 00 :00 the Medical morning. Branch levETIRAcet 2021- No [id number] 500mg Take 1 [facility] am 500 mg 7-30 10-20 tablet by ity of tablet 00:00: 00:00 mouth in [place] 00 :00 the Medical morning Branch and 1 tablet in the evening. lamoTRIgine 2021-2021- No [id number] 25mg Take 1 [facility] 25 mg 7-30 10-20 tablet by ity of tablet 00:00: 00:00 mouth in [place] 00 :00 the Medical morning. Branch aspirin 81 2021-0 Yes [id number] 81mg Take 1 U nivers mg EC 5-02 tablet by ity of tablet 00:00: mouth [place] 00 daily. Medical Branch aspirin 81 2021-0 Yes [id number] 81mg Take 1 U nivers mg EC 5-02 tablet by ity of tablet 00:00: mouth [place] 00 daily. Medical Branch aspirin 81 2021-0 Yes [id number] 81mg Take 1 U nivers mg EC 5-02 tablet by ity of tablet 00:00: mouth [place] 00 daily. Medical Branch aspirin 81 2021-0 Yes [id number] 81mg Take 1 U nivers mg EC 5-02 tablet by ity of tablet 00:00: mouth [place] 00 daily. Medical Branch aspirin 81 2021-0 Yes [id number] 81mg Take 1 U nivers mg EC 5-02 tablet by ity of tablet 00:00: mouth [place] 00 daily. Medical Branch aspirin 81 2021-0 Yes [id number] 81mg Take 1 U nivers mg EC 5-02 tablet by ity of tablet 00:00: mouth [place] 00 daily. Medical Branch aspirin 81 2021-0 Yes [id number] 81mg Take 1 U nivers mg EC 5-02 tablet by ity of tablet 00:00: mouth [place] 00 daily. Medical Branch aspirin 81 2021-0 Yes [id number] 81mg Take 1 U nivers mg EC 5-02 tablet by ity of tablet 00:00: mouth [place] 00 daily. Medical Branch aspirin 81 2021-0 Yes [id number] 81mg Take 1 U nivers mg EC 5-02 tablet by ity of tablet 00:00: mouth [place] 00 daily. Medical Branch aspirin 81 2021-0 Yes [id number] 81mg Take 1 U nivers mg EC 5-02 tablet by ity of tablet 00:00: mouth [place] 00 daily. Medical Branch aspirin 81 2021-0 Yes [id number] 81mg Take 1 U nivers mg EC 5-02 tablet by ity of tablet 00:00: mouth [place] 00 daily. Medical Branch aspirin 81 2021-0 2- No [id number] 81mg Take 1 [facility] mg EC 5-02 10-20 tablet by ity of tablet 00:00: 00:00 mouth [place] 00 :00 daily. Medical Branch aspirin 81 2021-0 2- No [id number] 81mg Take 1 [facility] mg EC 5-02 10-20 tablet by ity of tablet 00:00: 00:00 mouth [place] 00 :00 daily. Medical Branch foLIC acid 2021-0 Yes [id number] 4mg Take 4 [facility] 1 mg tablet 4-09 tablets by it y of 00:00: mouth [place] 00 daily. Medical Branch foLIC acid 2021-0 Yes [id number] 4mg Take 4 [facility] 1 mg tablet 4-09 tablets by it y of 00:00: mouth [place] 00 daily. Medical Branch foLIC acid 2021-0 Yes [id number] 4mg Take 4 [facility] 1 mg tablet 4-09 tablets by it y of 00:00: mouth [place] 00 daily. Medical Branch foLIC acid 2021-0 Yes [id number] 4mg Take 4 [facility] 1 mg tablet 4-09 tablets by it y of 00:00: mouth [place] 00 daily. Medical Branch foLIC acid 2021-0 Yes [id number] 4mg Take 4 [facility] 1 mg tablet 4-09 tablets by it y of 00:00: mouth [place] 00 daily. Medical Branch foLIC acid 2021-0 Yes [id number] 4mg Take 4 [facility] 1 mg tablet 4-09 tablets by it y of 00:00: mouth [place] 00 daily. Medical Branch foLIC acid 2021-0 Yes [id number] 4mg Take 4 [facility] 1 mg tablet 4-09 tablets by it y of 00:00: mouth [place] 00 daily. Medical Branch foLIC acid 2022-0 Yes [id number] 4mg Take 4 [facility] 1 mg tablet 4-09 tablets by it y of 00:00: mouth [place] 00 daily. Medical Branch foLIC acid 2-0 Yes [id number] 4mg Take 4 [facility] 1 mg tablet 4-09 tablets by it y of 00:00: mouth [place] 00 daily. Medical Branch foLIC acid 2-0 Yes [id number] 4mg Take 4 [facility] 1 mg tablet 4-09 tablets by it y of 00:00: mouth [place] 00 daily. Medical Branch foLIC acid 2021-0 Yes [id number] 4mg Take 4 [facility] 1 mg tablet 4-09 tablets by it y of 00:00: mouth [place] 00 daily. Medical Branch foLIC acid 2021-0 2- No [id number] 4mg Take 4 [facility] 1 mg tablet 4-09 10-20 tablets by i ty of 00:00: 00:00 mouth [place] 00 :00 daily. Medical Branch foLIC acid 2021-0 2- No [id number] 4mg Take 4 [facility] 1 mg tablet 4-09 10-20 tablets by i ty of 00:00: 00:00 mouth [place] 00 :00 daily. Medical Branch metoclopram 2022-0 Yes [id number] 10mg Take 1 [facility] susie HCl 10 4-05 tablet by ity of mg tablet 00:00: mouth [place] 00 every 6 Medical (six) Branch hours. metoclopram 2022-0 Yes [id number] 10mg Take 1 [facility] susie HCl 10 4-05 tablet by ity of mg tablet 00:00: mouth [place] 00 every 6 Medical (six) Branch hours. metoclopram 2022-0 Yes [id number] 10mg Take 1 [facility] susie HCl 10 4-05 tablet by ity of mg tablet 00:00: mouth [place] 00 every 6 Medical (six) Branch hours. metoclopram 2022-0 Yes [id number] 10mg Take 1 [facility] susie HCl 10 4-05 tablet by ity of mg tablet 00:00: mouth [place] 00 every 6 Medical (six) Branch hours. metoclopram 2022-0 Yes [id number] 10mg Take 1 [facility] susie HCl 10 4-05 tablet by ity of mg tablet 00:00: mouth [place] 00 every 6 Medical (six) Branch hours. metoclopram 2022-0 Yes [id number] 10mg Take 1 [facility] susie HCl 10 4-05 tablet by ity of mg tablet 00:00: mouth [place] 00 every 6 Medical (six) Branch hours. metoclopram 2022-0 Yes [id number] 10mg Take 1 [facility] susie HCl 10 4-05 tablet by ity of mg tablet 00:00: mouth [place] 00 every 6 Medical (six) Branch hours. metoclopram 2022-0 Yes [id number] 10mg Take 1 [facility] susie HCl 10 4-05 tablet by ity of mg tablet 00:00: mouth [place] 00 every 6 Medical (six) Branch hours. metoclopram 2022-0 Yes [id number] 10mg Take 1 [facility] susie HCl 10 4-05 tablet by ity of mg tablet 00:00: mouth [place] 00 every 6 Medical (six) Branch hours. metoclopram 2022-0 Yes [id number] 10mg Take 1 [facility] susie HCl 10 4-05 tablet by ity of mg tablet 00:00: mouth [place] 00 every 6 Medical (six) Branch hours. metoclopram 2022-0 Yes [id number] 10mg Take 1 [facility] susie HCl 10 4-05 tablet by ity of mg tablet 00:00: [facility] 00 every 6 Medical (six) Branch hours. metoclopram 2022-0 2022- No [id number] 10mg Take 1 [facility] susie HCl 10 4-05 10-20 tablet by ity of mg tablet 00:00: 00:00 mouth [place] 00 :00 every 6 Medical (six) Branch hours. metoclopram 2022-0 2022- No [id number] 10mg Take 1 [facility] susie HCl 10 4-05 10-20 tablet by ity of mg tablet 00:00: 00:00 mouth [place] 00 :00 every 6 Medical (six) Branch hours. Immunizations Ordered Filled Immunization Date Status Comments [facility] e Immunization Name Name [facility] 2022-02-08 Completed [facility] of 00:00:00 [facility] TD 2022-02-08 Completed University of 00:00:00 [facility] TDAP 2022-02-08 Completed University of 00:00:00 [facility] TDAP 2022-02-08 Completed University of 00:00:00 [facility] TDAP 2022-02-08 Completed University of 00:00:00 [facility] TDAP 2022-02-08 Completed [facility] of 00:00:00 [facility] TDAP 2022-02-08 Completed [facility] of 00:00:00 [facility] TDAP 2022-02-08 Completed University of 00:00:00 [facility] TDAP 2022-02-08 Completed University of 00:00:00 [facility] TDAP 2022-02-08 Completed University of 00:00:00 [facility] TDAP 2022-02-08 Completed University of 00:00:00 [facility] TDAP 2022-02-08 Completed University of 00:00:00 [facility] TDAP 2022-02-08 Completed University of 00:00:00 [facility] TDAP 2022-02-08 Completed University of 00:00:00 [facility] TDAP 2022-02-08 Completed University of 00:00:00 [facility] TDAP 2022-02-08 Completed University of 00:00:00 [facility] TDAP 2022-02-08 Completed University of 00:00:00 [facility] TDAP 2022-02-08 Completed University of 00:00:00 [facility] Influenza Virus 2021-08-08 Completed Universit y of Vaccine Quad IM, 00:00:00 [place] [facility] Preserv and ABX Branch Free 6 MO-64 YRS Influenza Virus 2021-08-08 Completed Universit y of Vaccine [facility] IM, 00:00:00 [place] Me dical Preserv and ABX Branch Free 6 MO-64 YRS Influenza Virus 2021-08-08 Completed Universit y of Vaccine Quad IM, 00:00:00 [place] Me dical Preserv and ABX Branch Free 6 MO-64 YRS Influenza Virus 2021-08-08 Completed Universit y of Vaccine Quad IM, 00:00:00 [place] Me dical Preserv and ABX Branch Free 6 MO-64 YRS Influenza Virus 2021-08-08 Completed Universit y of Vaccine Quad IM, 00:00:00 [place] Me dical Preserv and ABX Branch Free 6 MO-64 YRS Influenza Virus 2021-08-08 Completed [facility]it y of Vaccine Quad IM, 00:00:00 [place] Me dical Preserv and ABX Branch Free 6 MO-64 YRS Influenza Virus 2021-08-08 Completed [facility]it y of Vaccine Quad IM, 00:00:00 [place] Me dical Preserv and ABX Branch Free 6 MO-64 YRS Influenza Virus 2021-08-08 Completed [facility]it y of Vaccine Quad IM, 00:00:00 [place] Me dical Preserv and ABX Branch Free 6 MO-64 YRS Influenza Virus 2021-08-08 Completed [facility]it y of Vaccine Quad IM, 00:00:00 [place] Me dical Preserv and ABX Branch Free 6 MO-64 YRS Influenza Virus 2021-08-08 Completed Universit y of Vaccine Quad IM, 00:00:00 [place] Me dical Preserv and ABX Branch Free 6 MO-64 YRS Influenza Virus 2021-08-08 Completed Universit y of Vaccine Quad IM, 00:00:00 [place] Me dical Preserv and ABX Branch Free 6 MO-64 YRS Influenza Virus 2021-08-08 Completed Universit y of Vaccine Quad IM, 00:00:00 [place] Me dical Preserv and ABX Branch Free 6 MO-64 YRS Influenza Virus 2021-08-08 Completed [facility], 00:00:00 [place] [facility] Free 6 MO-64 YRS Influenza Virus 2021-08-08 Completed [facility], 00:00:00 [place] [facility] Free 6 MO-64 YRS Influenza Virus 2021-08-08 Completed [facility], 00:00:00 [place] [facility] Free 6 MO-64 YRS Influenza Virus 2021-08-08 Completed [facility], 00:00:00 [place] [facility] Free 6 MO-64 YRS Influenza Virus 2021-08-08 Completed [facility], 00:00:00 [place] [facility] Free 6 MO-64 YRS Influenza Virus 2021-08-08 Completed [facility], 00:00:00 [place] [facility] Free 6 MO-64 YRS Influenza Virus 2021-08-08 Completed [facility], 00:00:00 [place] [facility] Free 6 MO-64 YRS HPV9 2017-10-21 Completed University of 00:00:00 [facility] HPV9 2017-10-21 Completed University of 00:00:00 [facility] HPV9 2017-10-21 Completed University of 00:00:00 [facility] HPV9 2017-10-21 Completed University of 00:00:00 [facility] HPV9 2017-10-21 Completed University of 00:00:00 [facility] HPV9 2017-10-21 Completed University of 00:00:00 [facility] HPV9 2017-10-21 Completed University of 00:00:00 [facility] HPV9 2017-10-21 Completed University of 00:00:00 [facility]9 2017-10-21 Completed University of 00:00:00 [facility] HPV9 2017-10-21 Completed University of 00:00:00 [facility] HPV9 2017-10-21 Completed University of 00:00:00 [facility] HPV9 2017-10-21 Completed University of 00:00:00 [facility] HPV9 2017-10-21 Completed University of 00:00:00 [facility] HPV9 2017-10-21 Completed University of 00:00:00 [facility]9 2017-10-21 Completed University of 00:00:00 [facility]9 2017-10-21 Completed University of 00:00:00 [facility]9 2017-10-21 Completed University of 00:00:00 [facility]9 2017-10-21 Completed University of 00:00:00 [facility]9 2017-10-21 Completed University of 00:00:00 [facility] Varicella 2017-05-27 Completed University of (varivax)(chicken 00:00:00 [place] [facility] pox[facility] 2017-05-27 Completed University of 00:00:00 [facility] Varicella 2017-05-27 Completed University of (varivax)(chicken 00:00:00 [place] [facility] pox[facility] 2017-05-27 Completed University of 00:00:00 [facility] Varicella 2017-05-27 Completed University of (varivax)(chicken 00:00:00 [place] [facility] pox[facility] 2017-05-27 Completed University of 00:00:00 [facility] Varicella 2017-05-27 Completed University of (varivax)(chicken 00:00:00 [place] [facility] pox[facility] 2017-05-27 Completed University of 00:00:00 [facility] Varicella 2017-05-27 Completed University of (varivax)(chicken 00:00:00 [place] [facility] pox[facility] 2017-05-27 Completed University of 00:00:00 [facility] Varicella 2017-05-27 Completed University of (varivax)(chicken 00:00:00 [place] [facility] pox[facility] HPV9 2017-05-27 Completed University of 00:00:00 [facility] Varicella 2017-05-27 Completed University of (varivax)(chicken 00:00:00 [place] [facility] pox[facility] HPV9 2017-05-27 Completed University of 00:00:00 [facility] Varicella 2017-05-27 Completed University of (varivax)(chicken 00:00:00 [place] [facility] pox[facility] HPV9 2017-05-27 Completed University of 00:00:00 [facility] Varicella 2017-05-27 Completed University of (varivax)(chicken 00:00:00 [place] [facility] pox[facility] HPV9 2017-05-27 Completed University of 00:00:00 [facility] Varicella 2017-05-27 Completed [facility] of (varivax)(chicken 00:00:00 [place] [facility] pox[facility] HPV9 2017-05-27 Completed University of 00:00:00 [facility] Varicella 2017-05-27 Completed [facility] of (varivax)(chicken 00:00:00 [place] [facility] pox[facility] HPV9 2017-05-27 Completed University of 00:00:00 [facility] Varicella 2017-05-27 Completed [facility] of (varivax)(chicken 00:00:00 [place] [facility] pox[facility] HPV9 2017-05-27 Completed [facility] of 00:00:00 [facility] Varicella 2017-05-27 Completed [facility] of (varivax)(chicken 00:00:00 [place] [facility] pox[facility] HPV9 2017-05-27 Completed University of 00:00:00 [facility] Varicella 2017-05-27 Completed [facility] of (varivax)(chicken 00:00:00 [place] [facility] HPV9 2017-05-27 Completed University of 00:00:00 [facility] Varicella 2017-05-27 Completed [facility] of (varivax)(chicken 00:00:00 [place] [facility] pox[facility] HPV9 2017-05-27 Completed University of 00:00:00 [facility] Varicella 2017-05-27 Completed [facility] of (varivax)(chicken 00:00:00 [place] [facility] pox[facility] HPV9 2017-05-27 Completed University of 00:00:00 [facility] Varicella 2017-05-27 Completed [facility] of (varivax)(chicken 00:00:00 [place] [facility] pox[facility] HPV9 2017-05-27 Completed University of 00:00:00 [facility] Varicella 2017-05-27 Completed [facility] of (varivax)(chicken 00:00:00 [place] [facility]ox[facility] HPV9 2017-05-27 Completed [facility] of 00:00:00 [facility] Varicella 2017-05-27 Completed [facility] of (varivax)(chicken 00:00:00 [place] [facility] pox[facility] HPV9 2017-05-27 Completed [facility] of 00:00:00 [facility] Varicella 2017-04-20 Completed [facility] of (varivax)(chicken 00:00:00 [place] [facility]ox[facility] 2017-04-20 Completed University of 00:00:00 [facility] Varicella 2017-04-20 Completed [facility] of (varivax)(chicken 00:00:00 [place] [facility] 2017-04-20 Completed [facility] of 00:00:00 [facility] Varicella 2017-04-20 Completed [facility] of (varivax)(chicken 00:00:00 [place] [facility] p[facility] 2017-04-20 Completed [facility] of 00:00:00 [facility] Varicella 2017-04-20 Completed [facility] of (varivax)(chicken 00:00:00 [place] [facility] pox[facility] 2017-04-20 Completed University of 00:00:00 [facility] Varicella 2017-04-20 Completed [facility] of (varivax)(chicken 00:00:00 [place] [facility] pox[facility] 2017-04-20 Completed [facility] of 00:00:00 [facility] Varicella 2017-04-20 Completed [facility] of (varivax)(chicken 00:00:00 [place] [facility] pox[facility] 2017-04-20 Completed University of 00:00:00 [facility] Varicella 2017-04-20 Completed [facility] of (varivax)(chicken 00:00:00 [place] [facility] pox[facility] 2017-04-20 Completed University of 00:00:00 [facility] Varicella 2017-04-20 Completed [facility] of (varivax)(chicken 00:00:00 [place] [facility] pox[facility] 2017-04-20 Completed [facility] of 00:00:00 [facility] Varicella 2017-04-20 Completed [facility] of (varivax)(chicken 00:00:00 [place] [facility] pox[facility] HPV9 2017-04-20 Completed [facility] of 00:00:00 [facility] Varicella 2017-04-20 Completed [facility] of (varivax)(chicken 00:00:00 [place] [facility] pox[facility] HPV9 2017-04-20 Completed [facility] of 00:00:00 [facility] Varicella 2017-04-20 Completed [facility] of (varivax)(chicken 00:00:00 [place] [facility] pox[facility] HPV9 2017-04-20 Completed [facility] of 00:00:00 [facility] Varicella 2017-04-20 Completed [facility] of (varivax)(chicken 00:00:00 [place] [facility] pox[facility] 2017-04-20 Completed [facility] of 00:00:00 [facility] Varicella 2017-04-20 Completed [facility] of (varivax)(chicken 00:00:00 [place] [facility] 2017-04-20 Completed [facility] of 00:00:00 [facility] Varicella 2017-04-20 Completed [facility] of (varivax)(chicken 00:00:00 [place] [facility] pox[facility] 2017-04-20 Completed [facility] of 00:00:00 [facility] Varicella 2017-04-20 Completed [facility] of (varivax)(chicken 00:00:00 [place] [facility] pox[facility] 2017-04-20 Completed [facility] of 00:00:00 [facility] Varicella 2017-04-20 Completed [facility] of (varivax)(chicken 00:00:00 [place] [facility] pox[facility] 2017-04-20 Completed University of 00:00:00 [facility] Varicella 2017-04-20 Completed [facility] of (varivax)(chicken 00:00:00 [place] [facility] pox[facility] 2017-04-20 Completed University of 00:00:00 [facility] Varicella 2017-04-20 Completed [facility] of (varivax)(chicken 00:00:00 [place] [facility] pox[facility] 2017-04-20 Completed [facility] of 00:00:00 [facility] Varicella 2017-04-20 Completed [facility] of (varivax)(chicken 00:00:00 [place] [facility] pox[facility] 2017-04-20 Completed University of 00:00:00 [facility] Influenza Virus 2017-03-28 Completed [facility] 3+ 00:00:[address] [facility] Influenza Virus 2017-03-28 Completed [facility] 3+ 00:00:[address] [facility] Influenza Virus 2017-03-28 Completed [facility] 3+ 00:00:[address] [facility] Influenza Virus 2017-03-28 Completed [facility] 3+ 00:00:[address] [facility] Influenza Virus 2017-03-28 Completed [facility] 3+ 00:00:[address] [facility] Influenza Virus 2017-03-28 Completed [facility] 3+ 00:00:[address] [facility] Influenza Virus 2017-03-28 Completed [facility] 3+ 00:00:[address] [facility] Influenza Virus 2017-03-28 Completed [facility] 3+ 00:00:[address] [facility] Influenza Virus 2017-03-28 Completed [facility] 3+ 00:00:[address] [facility] Influenza Virus 2017-03-28 Completed [facility] 3+ 00:00:[address] [facility] Influenza Virus 2017-03-28 Completed [facility] 3+ 00:00:[address] [facility] Influenza Virus 2017-03-28 Completed [facility] 3+ 00:00:[address] [facility] Influenza Virus 2017-03-28 Completed [facility] 3+ 00:00:[address] [facility] Influenza Virus 2017-03-28 Completed [facility] 3+ 00:00:[address] [facility] Influenza Virus 2017-03-28 Completed [facility] 3+ 00:00:[address] [facility] Influenza Virus 2017-03-28 Completed [facility] 3+ 00:00:[address] [facility] Influenza Virus 2017-03-28 Completed [facility] 3+ 00:00:[address] [facility] Influenza Virus 2017-03-28 Completed [facility] 3+ 00:00:[address] [facility] Influenza Virus 2017-03-28 Completed [facility] 3+ 00:00:00 [facility] TDAP 2017-02-12 Completed University of 00:00:00 [facility] TDAP 2017-02-12 Completed University of 00:00:00 [facility] TDAP 2017-02-12 Completed University of 00:00:00 [facility] TDAP 2017-02-12 Completed [facility] of 00:00:00 [facility] TDAP 2017-02-12 Completed University of 00:00:00 [facility] TDAP 2017-02-12 Completed University of 00:00:00 [facility] TDAP 2017-02-12 Completed University of 00:00:00 [facility] TDAP 2017-02-12 Completed University of 00:00:00 [facility] TDAP 2017-02-12 Completed University of 00:00:00 [facility] TDAP 2017-02-12 Completed University of 00:00:00 [facility] TDAP 2017-02-12 Completed University of 00:00:00 [facility] TDAP 2017-02-12 Completed University of 00:00:00 [facility] TDAP 2017-02-12 Completed University of 00:00:00 [facility] TDAP 2017-02-12 Completed University of 00:00:00 [facility] TDAP 2017-02-12 Completed University of 00:00:00 [facility] TDAP 2017-02-12 Completed University of 00:00:00 [facility] TDAP 2017-02-12 Completed University of 00:00:00 [facility] TDAP 2017-02-12 Completed University of 00:00:00 [facility] TDAP 2017-02-12 Completed University of 00:00:00 [facility] Vital Signs Vital Name Observation Time Observation Value Comments Source Systolic blood 2022-11-27 18:59:00 121 mm[Hg] Univer sity of pressure [facility] Diastolic blood 2022-11-27 18:59:00 78 mm[Hg] Unive rsity of pressure [facility] Heart rate 2022-11-27 18:59:00 76 /min Universi ty [facility] Body temperature 2022-11-27 18:59:00 36.83 [place] [facility] ersity [facility] Respiratory rate 2022-11-27 18:59:00 18 /[facility] 2022-11-27 18:59:00 154.9 cm [facility] Body weight 2022-11-27 18:59:00 77.565 kg [facility] [place] [facility] BMI 2022-11-27 18:59:00 32.31 kg/m2 [facility] [place] [facility] Systolic blood 2022-09-03 19:05:00 127 mm[Hg] Univer sity of pressure [facility] Diastolic blood 2022-09-03 19:05:00 83 mm[Hg] Unive rsity of pressure [facility] Heart rate 2022-09-03 19:05:00 95 /min [facility] [place] [facility] Body temperature 2022-09-03 19:05:00 36.72 [place] [facility] [place] [facility] Respiratory rate 2022-09-03 19:05:00 16 /min Univ [facility] [place] [facility] Body height 2022-09-03 19:05:00 154.9 cm [facility] [place] [facility] Body weight 2022-09-03 19:05:00 70.58 kg [facility] [place] [facility] BMI 2022-09-03 19:05:00 29.40 kg/m2 [facility] [place] [facility] Oxygen saturation in 2022-09-03 19:05:00 99 /min University of Arterial blood by [place] [employer] [facility] oxim[facility] Branch Systolic blood 2022-03-15 12:35:00 119 mm[Hg] Univer sity of pressure [facility] Diastolic blood 2022-03-15 12:35:00 69 mm[Hg] Unive rsity of pressure [facility] Heart rate 2022-03-15 12:35:00 72 /min [facility] [place] [facility] Body temperature 2022-03-15 12:35:00 36.78 [place] [facility] [place] [facility] Oxygen saturation in 2022-03-15 12:35:00 99 /min University of Arterial blood by [place] [employer] Pulse oximetry Branch Respiratory rate 2022-03-15 05:10:00 18 /min Univ ers[facility] [place] [facility] Body height 2022-03-13 12:00:00 154.9 cm [facility] [place] [facility] Body weight 2022-03-13 12:00:00 72.122 kg [facility] [place] [facility] BMI 2022-03-13 12:00:00 30.04 kg/m2 [facility] [place] [facility] Systolic blood 2022-03-12 15:05:00 138 mm[Hg] Univer sity of pressure [place] [facility] Diastolic blood 2022-03-12 15:05:00 88 mm[Hg] Unive rsity of pressure [facility] Heart rate 2022-03-12 15:04:00 87 /min Universi ty of [facility] Body temperature 2022-03-12 15:04:00 37 [place] [facility] [place] [facility] Respiratory rate 2022-03-12 15:04:00 18 /min Univ [facility] [place] [facility] Body height 2022-03-12 15:04:00 154.9 cm [facility] [place] [facility] Body weight 2022-03-12 15:04:00 73.664 kg [facility] [place] [facility] BMI 2022-03-12 15:04:00 30.69 kg/m2 Universi ty of [facility] Heart rate 2022-03-08 21:15:00 80 /min Universi ty of [facility] Oxygen saturation in 2022-03-08 21:15:00 100 /min University of Arterial blood by [facility] Pulse oximetry Branch Systolic blood 2022-03-08 16:11:00 128 mm[Hg] Univer sity of pressure [facility] Diastolic blood 2022-03-08 16:11:00 85 mm[Hg] Unive rsity of pressure [facility] Body temperature 2022-03-08 16:11:00 36.72 [place] [facility] ersity of [facility] Respiratory rate 2022-03-08 16:11:00 18 /min Univ ers[facility] [place] [facility] Body height 2022-03-08 13:29:00 154.9 cm [facility] [place] [facility] Body weight 2022-03-08 13:29:00 72.122 kg [facility] [place] [facility] BMI 2022-03-08 13:29:00 30.04 kg/m2 [facility] [place] [facility] Systolic blood 2022-03-04 21:59:00 128 mm[Hg] Univer sity of pressure [facility] Diastolic blood 2022-03-04 21:59:00 82 mm[Hg] Unive rsity of pressure [facility] Heart rate 2022-03-04 21:59:00 107 /min [facility] [place] [facility] Body temperature 2022-03-04 21:59:00 36.83 [place] [facility] [place] [facility] Respiratory rate 2022-03-04 21:59:00 18 /min Univ [facility] [place] [facility] Body height 2022-03-04 21:59:00 154.9 cm [facility] [place] [facility] Body weight 2022-03-04 21:59:00 73.029 kg [facility] [place] [facility] BMI 2022-03-04 21:59:00 30.42 kg/m2 [facility] [place] [facility] Systolic blood 2022-02-22 14:20:00 129 mm[Hg] Univer sity of pressure [facility] Diastolic blood 2022-02-22 14:20:00 81 mm[Hg] Unive rsity of pressure [facility] Heart rate 2022-02-22 14:20:00 96 /min [facility] [place] [facility] Body temperature 2022-02-22 14:20:00 37 [place] [facility] [place] [facility] Respiratory rate 2022-02-22 14:20:00 16 /min [facility] [place] [facility] Body height 2022-02-22 14:20:00 154.9 cm [facility] [place] [facility] Body weight 2022-02-22 14:20:00 71.759 kg [facility] [place] [facility] BMI 2022-02-22 14:20:00 29.89 kg/m2 [facility] [place] [facility] Oxygen saturation in 2022-02-22 14:20:00 96 /min [facility] Arterial blood by [facility] Pulse oximetry Branch Systolic blood 2022-02-08 20:28:00 122 mm[Hg] Univer sity of pressure [facility] Diastolic blood 2022-02-08 20:28:00 76 mm[Hg] Unive rsity of pressure [facility] Heart rate 2022-02-08 20:28:00 111 /min [facility] [place] [facility] Body temperature 2022-02-08 20:28:00 36.78 [place] [facility] [place] [facility] Respiratory rate 2022-02-08 20:28:00 18 /min Univ ers[facility] [place] [facility] Body height 2022-02-08 20:28:00 154.9 cm [facility] [place] [facility] Body weight 2022-02-08 20:28:00 72.122 kg [facility] BMI 2022-02-08 20:28:00 30.04 kg/m2 [facility] Procedures Procedure Date / Time Performing Clinician Source Performed PAP SMEAR-LIQUID 2022-09-03 19:43:00 Jaqueline Singh [facility] PATIENT FINANCIAL 2022-09-03 18:45:58 Doctor Unassigned, No [facility] POLICY Name [facility] POCT TEST 2022-09-03 00:00:00 Jaqueline Singh [facility] CBC WITH DIFF 2022-03-14 08:46:00 Kota Napier [facility] CENTRAL NEURAXIAL BLOCK 2022-03-13 21:43:27 Eliu Villalobos [facility] US PELVIS > 14 2022-03-13 19:00:00 Kota Napier [facility] URINE DRUG (IMMUNOASSAY) 2022-03-13 15:05:00 Adum, Isabelle Ruiz [facility] SCREEN URINE CULTURE 2022-03-13 14:42:00 Adum, Isabelle Ruiz [facility] PROTEIN CREAT RATIO 2022-03-13 14:42:00 Adum, Isabelle Ruiz [facility] URINE RANDOM [facility] LACTATE DEHYDROGENASE 2022-03-13 13:27:00 Adum, [facility]iz [facility] CBC WITH DIFF 2022-03-13 13:27:00 Adum, Isabelle Ruiz [facility] URIC ACID 2022-03-13 12:23:00 Adum, Isabelle Ruiz [facility] COMP. METABOLIC PANEL 2022-03-13 12:23:00 Adum, Isabelle Ruiz [facility] ([id number]) [facility] HEPATITIS B SURFACE 2022-03-13 12:23:00 Adum, Isabelle Ruiz [facility] ANTIGEN [facility] ADC OR [place] ONLY - 2022-03-13 12:23:00 Adum, Isabelle Ruiz [facility]2 [facility]-AB WITH 2022-03-13 12:23:00 Adum, [facility] REFLEX [facility] HB ABO GROUPING 2022-03-13 12:22:00 [facility]um, [facility] RHO (D) IMMUNE GLOBULIN 2022-03-13 12:22:00 Kota Napier [facility] NON-STRESS TEST 2022-03-12 15:38:59 [facility]es [facility] US PELVIS > 14 2022-03-08 19:52:00 Kota Napier [facility] US BIOPHYSICAL 2022-03-08 19:26:00 Kota Napier [facility] URINALYSIS 2022-03-08 16:05:00 Kota Napier [facility] CONSENT/REFUSAL FOR 2022-03-08 13:26:43 Doctor Unassigned, No [facility] DIAGNOSIS AND TREATMENT [facility] POCT URINALYSIS W/O 2022-03-04 00:00:00 Jaqueline Singh [facility] SPECIFIC GRAVITY [facility] GALV ONLY - VAGINAL 2022-02-08 21:34:00 Kota Napier [facility] PATHOGENS BY NUCLEIC Medical [facility] ACID TESTING TDAP VACCINE, >11 YRS, 2022-02-08 20:38:16 [facility] STERILIZATION CONSENT 2022-02-08 05:01:00 Doctor Unassigned, No [facility] FORM Name [facility] POCT URINALYSIS W/O 2022-02-08 00:00:00 Kota Napier [facility] SPECIFIC GRAVITY [facility] GLUCOSE 1 HOUR POST 2022-01-07 20:27:00 [facility]FF 2022-01-07 20:27:00 Janes Hernandez [facility] ADC OR [place] ONLY - 2022-01-07 20:27:00 Janes Hernandez [facility] HIV 1/2 AG-AB WITH 2022-01-07 20:27:00 Janes Hernandez [facility] of [facility] HB ABO GROUPING 2022-01-07 20:24:00 Janes Hernandez [place] [facility] Encounters Start End Encounter Admission Attending Care Care Encounter Source Date/Time Date/Time Type Type Clinicians Facility Department ID 2021-08-08 Outpatient P [facility] [id number] Univers 16:29:07 ity [facility] 2023-02-19 2023-02-19 Outpatient R [facility] [id number] Univers 14:30:00 [facility] 2023-01-08 Outpatient R JAQUELINE SINGH [facility] B [id number] Univers 14:30:00 14:30:[address] [facility] 2022-12-23 2022-12-23 Outpatient R JAQUELINE SINGH [facility] B [id number] Univers 09:00:00 09:00:[address] [facility] 2022-11-27 2022-11-27 Nurse Nurse, Lkj [facility] 1.2.840.114 [id number] Univers 14:00:00 14:00:00 Visit Coby Adams 350.1.13 .10 ity of WOMEN'S 4.2.7.2.686 [facility] [id number] [place] [address] [address] 2022-11-27 2022-11-27 Outpatient R ISIDORO [facility] [id number] Univers 14:00:00 13:58:13 COBY CORONA [facility] 2022-09-03 2022-09-03 Outpatient R JQAUELINE SINGH [facility] B [id number] Univers 14:00:00 14:42:08 JAQUELINE SINGH josh [facility] 2022-09-03 2022-09-03 Office Prashanth [facility] 1.2.840.114 [id number] Univers 14:00:00 14:42:08 Visit Jaqueline MCKEON 350.1.13.10 it y of WOMEN'S 4.2.7.2.686 [facility] [id number] [facility] CLINIC [address] 2022-09-03 2022-09-03 Orders Doctor NAA 1.2.840.114 [id number] Univers 00:00:00 00:00:00 Only Unassigned, REECE 350.1.13.10 ity of [place] [facility] 4.2.7.2.686 [place] [id number] [facility] [address] 2022-07-18 2022-07-18 Outpatient R JAQUELINE SINGH [facility] B [id number] Univers 13:30:00 13:30:[address] [facility] 2022-07-08 2022-07-08 Outpatient R JAQUELINE SINGH [facility] B [id number] Univers 13:00:00 13:00:[address] [facility] 2022-06-04 2022-06-04 Outpatient R JAQUELINE SINGH [facility] B [id number] Univers 13:45:00 13:45:[address] [facility] 2022-04-10 2022-04-10 Outpatient R KOTA NAPIER [facility] [id number] Univers 09:30:00 09:30:00 ity [facility] 2022-04-08 2022-04-08 Outpatient R KOTA NAPIER [facility] [id number] Univers 09:30:00 09:30:00 ity [facility] 2022-03-13 2022-03-15 Inpatient X KOTA NAPIER [facility] LATOSHA [id number] Univers 06:59:00 14:40:00 ity [facility] 2022-03-13 2022-03-15 [facility] Marco Antonio Billingsley [facility] 1.2.840.11 [id number] Univers 06:59:00 14:40:00 Encounter Kota Napier 350.1.13.10 ity [facility] 4.2.7.2.686 [facility] [id number] [facility] [address] 2022-03-15 2022-03-15 Outpatient P [facility] [id number] Univers 09:30:00 09:30:00 ity of [facility] 2022-03-14 2022-03-14 [facility] 1.2.840.114 [id number] Univers 20:00:01 20:00:01 Event Watson GARCIAS 350.1.13.10 i ty of [facility] 4.2.7.2.[place] [id number] [address] 2022-03-14 2022-03-14 Outpatient R [facility] [id number] Univers 14:00:00 14:00:00 ity of [facility] 2022-03-13 2022-03-13 Anesthesia Eliu Villalobos [facility] 1.2.840.11 [id number] Univers 16:20:00 20:07:00 Event Andrea Teixeira 350.1.13.10 ity of [facility] 4.2.7.2.[place] [id number] [address] 2022-03-12 2022-03-12 [facility] [id number] Univers 10:00:00 10:42:09 JANES ity [facility] 2022-03-12 2022-03-12 Routine Room, [facility] 1.2.840.1 14 [id number] Univers 10:00:00 10:42:09 Janes Hernandez 350.1.13.10 ity of [place] [id number] Ne dical NAL [address] [place] [address] 2022-03-10 2022-03-10 Case Kota Napier [facility] 1.2.044.912 [id number] Univers 00:00:00 00:00:00 Management Michael GARCIAS 350.1.13.10 ity of [facility] 4.2.7.2.[place] [id number] Ne dical NAL 134 [facility] 2022-03-08 2022-03-08 Outpatient X KOTA NAPIER [facility] LATOSHA [id number] Univers 08:38:00 16:15:00 ity of [facility] 2022-03-08 2022-03-08 Emergency Kota Napier [facility] 1.2.840.114 [id number] Univers 08:38:00 16:15:00 Cam KATERINE 350.1.13.10 i ty of [place] 4.2.7.2.686 [facility] [id number] [facility] [address] 2022-03-06 2022-03-06 Outpatient R AMYJAQUELINE REES [facility] B [id number] Univers 14:30:00 14:30:00 AMYJAQUELINE REES briajosh [facility] 2022-03-05 2022-03-05 Telephone Walt Khoury [facility] 1.2.840.114 [id number] Univers 00:00:00 00:00:00 HEALTH 350.1.13.10 it y of [place] 4.2.7.2.686 [facility] [id number] [place] [address] Drain OFFICE BUILDING 2022-03-04 2022-03-04 Outpatient R AMYSIVA REESNEAL [facility] B [id number] Univers 16:30:00 17:21:51 AMYJAQUELINE REES briajosh [facility] 2022-03-04 2022-03-04 Routine Amycabrera [facility] 1.2.840.114 [id number] Univers 16:30:00 17:21:51 Jaqueline LINDA 350.1.13.10 i ty of Visit WOMEN'S 4.2.7.2.686 [facility] [id number] [facility] [address] 2022-02-25 2022-02-25 Outpatient R AMYCABRERA JAQUELINE [facility] B [id number] Univers 14:00:00 14:00:00 AMYSIVA REESNEAL fraserjosh [facility] 2022-02-22 2022-02-22 Outpatient R KOTA NAPIER [facility] [id number] Univers 08:45:00 12:56:44 ity [facility] 2022-02-22 2022-02-22 Routine Kota Napier [facility] 1.2.840.114 [id number] Univers 08:45:00 09:00:00 Michael MCKEON 350.1.13.10 i ty of [place] [id number] [address] 2022-02-08 2022-02-08 Outpatient R QUYEN [facility] [id number] Univers 15:00:00 16:01:16 ity of [facility] 2022-02-08 2022-02-08 Routine Quyen [facility] 1.2.840.114 [id number] Univers 15:00:00 16:01:16 Cam LINDA 350.1.13.10 i ty of [place] 4[place] [id number] [address] 2022-02-08 2022-02-08 Orders Doctor NAA 1.2.840.114 [id number] Univers 00:00:00 00:00:00 Only Unassigned, REECE 350.1.13.10 ity of [place] [facility] 4.2.7.2.686 [place] [id number] [address] 2022-02-07 2022-02-07 Outpatient R QUYEN [facility] [id number] Univers 08:15:00 08:15:00 ity [facility] 2022-01-16 2022-01-16 Outpatient Mirella NAPIER [facility] [id number] Univers 13:15:00 13:15:00 ity [facility] 2022-01-07 2022-01-07 Stitcher Utility 2, Adc Lab [facility] 1.2.840.114 [id number] Univers 13:30:00 13:45:00 Visit Janes Hernandez 350.1.13.10 ity [facility] 4.2.7.2.[place] [id number] [address] 2022-01-07 2022-01-07 Outpatient Mirella HERNANDEZ [facility] [id number] Univers 13:30:00 13:30:00 JANES sweeney [facility] 2021-12-26 2021-12-26 Outpatient NISHI BLEDSOE MEHOP [address] [place] 00:00:00 00:00:00 SSA 0803 [facility] 2021-12-21 2021-12-22 Outpatient U STU [facility] LATOSHA [id number] Univers 13:44:00 14:56:00 ANDRÉS ity [facility] 2021-12-21 2021-12-22 [facility] [place] NAA 1.2.458.399 [id number] Univers 13:44:00 14:56:00 Encounter Andrés NEWELL 350.1.13.10 ity of [facility] 4.2.7.2.686 [place] [id number] [address] 2021-12-21 2021-12-22 Outpatient U STU [facility] LATOSHA [id number] Univers 13:44:00 14:56:00 [facility] 2021-12-19 2021-12-19 Outpatient R KOTA NAPIER [facility] [id number] Univers 13:15:00 13:28:23 ity [facility] 2021-12-19 2021-12-19 Routine Janes Hernandez [facility] 1.2.840.11 [id number] Univers 13:15:00 13:28:23 Kota Napier [facility] 350.1.13.10 ity of [place] [id number] [address] 2021-12-11 2021-12-11 Stitcher Utility [facility] 1.2 .840.114 [id number] Univers 09:00:00 10:00:00 Visit Sybil Woodard RUG MEASURER 350.1.13.10 ity of REGIONAL 4.2.7.2.686 [place] MATERNAL [id number] Med ical & CHILD [address] [place] [address] 2021-12-11 2021-12-11 Outpatient P [facility] [id number] Univers 09:00:00 09:00:00 ity [facility] 2021-12-11 2021-12-11 Outpatient P SYBIL WOODARD [facility] [id number] Univers 09:00:00 09:00:00 VANCE SYBIL ity of [facility] 2021-11-19 2021-11-19 Outpatient R QU[facility]EN [facility] [id number] Univers 13:15:00 14:40:48 ity of [facility] 2021-11-19 2021-11-19 Routine [facility] 1.2.823.261 [id number] Univers 13:15:00 14:40:48 Cam ANGLEDILIA 350.1.13.10 ity of [place].2.[place] [id number] Ne dic[address] 2021-11-19 2021-11-19 Orders Doctor NAA 1.2.840.114 [id number] Univers 00:00:00 00:00:00 Only Unassigned, REECE 350.1.13.10 ity of [place] [facility] 4.2.7.2.686 [place] [id number] [facility] [address] 2021-10-23 2021-10-23 Outpatient R QUYEN KOTA [facility] [id number] Univers 13:00:00 13:00:00 ity of [facility] 2021-10-11 2021-10-11 Letter Walt Khoury 1.2.840.114 [id number] Univers 00:00:00 00:00:00 (Out) REECE 350.1.13.10 it y of HOSPITAL 4.2.7.2.686 [place] [id number] [facility] [address] 2021-10-04 2021-10-04 Telephone [facility] 1.2.840.114 [id number] Univers 00:00:00 00:00:00 Cam ANGLEDILIA 350.1.13.10 i ty of [place] 4.[place].7.2.[place] [id number] Ne dic[address] 2021-10-01 2021-10-01 Outpatient R EARLE [facility] [id number] Univers 15:15:00 15:15:00 MICHELLE sweeney o f [facility] 2021-09-24 2021-09-24 Stitcher Utility 2, Adc Lab [facility] 1.2.840.114 [id number] Univers 09:15:00 09:30:00 Visit Janes Hernandez 350.1.13.10 ity of [place].2.[place] [id number] Ne dical NAL 353 [facility] 2021-09-24 2021-09-24 Out[facility] [id number] Univers 09:15:00 09:15:00 JANES sweeney [facility] 2021-09-24 2021-09-24 Routine [facility] 1.2.835.264 [id number] Univers 08:00:00 08:55:34 Janes GARCIAS 350.1.13.10 ity of [place] [id number] Ne dical NAL 134 [facility] 2021-09-24 2021-09-24 Orders Doctor NAA 1.2.840.114 [id number] Univers 00:00:00 00:00:00 Only Unassigned, REECE 350.1.13.10 ity of [place] [facility] 4.2.7.2.686 [place] [id number] [address] 2021-09-18 2021-09-18 Outpatient R MARY [facility] [id number] Univers 11:00:00 11:00:00 [facility] 2021-09-11 2021-09-11 Abstract Earle [facility] 1.2.840.114 [id number] Univers 00:00:00 00:00:00 Michelle Vanessa RUG MEASURER 350.1.13.10 ity of [facility] 4.2.7.2.686 [place] MATERNAL [id number] Med ical & [place]ILD [address] [place] [address] 2021-09-10 2021-09-10 Hospital Walt Khoury [facility] 1.2.840.114 [id number] Univers 08:38:20 23:59:00 Encounter KATERINE 350.1.13.10 ity of [place].2.[place] [id number] [facility] [address] 2021-09-10 2021-09-10 Stitcher Utility 1, Marilin-Mfm Room [facility] 1.2. 840.114 [id number] Univers 14:45:00 15:18:40 Visit Walt Khoury RUG MEASURER 350.1.13.10 ity of Dm Mariano Bridgette [facility] 4.2.7.2.686 [place] MATERNAL [id number] Med ical & CHILD [address] [place] [address] 2021-09-10 2021-09-10 Hospital Walt Khoury [facility] 1.2.840.114 [id number] Univers 08:37:19 08:37:19 Encounter KATERINE 350.1.13.10 ity of [place] 4.2.7.2.686 [facility] [id number] [facility] [address] 2021-09-10 2021-09-10 Outpatient R WALT KHOURY [facility] [id number] Univers 08:37:19 08:37:19 ity of [facility] 2021-09-03 2021-09-03 Transition SCARLET Looney 1.2.840.114 [id number] Univers 00:00:00 00:00:00 of Care Tiarra EVERETT 350.1.13.10 ity STEVIE 4.2.7.2.686 [facility] [id number] [facility] [address] 2021-08-30 2021-09-01 Inpatient X WALT KHOURY [facility] OCTAVIO [id number] Univers 10:04:00 16:35:00 ity of [facility] 2021-08-30 2021-09-01 Hospital Abhinav Madrigal 1.2.840. 114 [id number] Univers 10:04:00 16:35:00 Encounter Aman Borden 350.1.13.10 ity of Walt Khoury [facility] 4.2.7.2.686 [place] [id number] [facility] [address] 2021-08-28 2021-08-28 Emergency X HERNANDO [facility] ERT [id number] Univers 10:15:00 13:33:00 PABLO ity of [facility] 2021-08-28 2021-08-28 Emergency [facility] 1.2.427.835 [id number] Univers 10:15:00 13:33:00 Pablo GARCIAS 350.1.13.10 i ty of [place] [id number] [facility] [address] 2021-08-22 2021-08-22 Outpatient R [facility]EN [facility] [id number] Univers 13:15:00 14:21:38 ity of [facility] 2021-08-22 2021-08-22 Routine [facility] 1.2.948.688 [id number] Univers 13:15:00 14:21:38 Michael GARCIAS 350.1.13.10 ity of [place]2.[place] [id number] Ne dic[address] 2021-08-22 2021-08-22 Outpatient R QU[facility]EN [facility] [id number] Univers 13:15:00 13:15:00 ity of [facility] 2021-08-22 2021-08-22 Orders Doctor NAA 1.2.840.114 [id number] Univers 00:00:00 00:00:00 Only Unassigned, REECE 350.1.13.10 ity of [place] [facility] 4.2.7.2.686 [place] [id number] [facility] [address] 2021-08-21 2021-08-21 Outpatient R EARLE [facility] [id number] Univers 12:45:00 12:45:00 MICHELLE ity o f [facility] 2021-08-17 2021-08-17 Telephone [facility] 1.2.840.114 [id number] Univers 00:00:00 00:00:00 Michael GARCIAS 350.1.13.10 i ty of [place].2.[place] [id number] Ne dical NAL [address] [place] [address] 2021-08-13 2021-08-13 Stitcher Utility Sherrie, Adc Lab Main [facility] 1.2.8 40.114 [id number] Univers 11:00:00 11:15:00 Visit Kota Napier Michael GARCIAS 350.1.13.10 ity of [facility] 4.2.7.2.686 [place] [id number] Ne dical NAL [address] [place] [address] 2021-08-13 2021-08-13 Outpatient R [facility] [id number] Univers 11:00:00 11:00:00 ity [facility] 2021-08-13 2021-08-13 Outpatient R [facility] [id number] Univers 11:00:00 11:00:00 ity [facility] 2021-08-13 2021-08-13 Outpatient R QUYEN KOTA [facility] [id number] Univers 11:00:00 11:00:00 ity [facility] 2021-08-10 2021-08-10 Outpatient R [facility] [id number] Univers 11:00:00 11:00:00 ity [facility] 2021-08-10 2021-08-10 Outpatient R [facility] [id number] Univers 11:00:00 11:00:00 ity [facility] 2021-08-08 2021-08-08 Outpatient P QUYEN KOTA [facility] LATOSHA [id number] Univers 11:24:00 16:22:00 ity [facility] 2021-08-08 2021-08-08 [facility] Napier Kota [facility] 1.2.840.114 [id number] Univers 11:24:00 16:22:00 Encounter Michael GARCIAS 350.1.13.10 ity of [place] [id number] [address] 2021-08-08 2021-08-08 Stitcher Utility Sherrie, Leigha Lab Main [facility] 1.2.8 40.114 [id number] Univers 11:45:00 12:00:00 Visit Kota Napier KATERINE 350.1.13.10 ity of [facility] 4.2.7.2.[place] [id number] Ne dical NAL 353 [facility] 2021-08-08 2021-08-08 Outpatient P ZACH NAPIEREN [facility] LATOSHA [id number] Univers 11:24:00 11:24:00 ity of [facility] 2021-08-08 2021-08-08 Outpatient R KOTA NAPIER [facility] [id number] Univers 10:00:00 11:13:12 ity of [facility] 2021-08-08 2021-08-08 Initial Zach Napieren [facility] 1.2.448.684 [id number] Univers 10:00:00 11:13:12 Cam BUFFALO 350.1.13.10 ity of [place] [id number] Ne dical [address] 2021 2021 Outpatient R KOTA NAPIER [facility] [id number] Univers 10:00:00 10:00:00 ity of [facility] 2021-07-25 2021-07-25 Orders Doctor NAA 1.2.840.114 [id number] Univers 00:00:00 00:00:00 Only Unassigned, REECE 350.1.13.10 ity of [place] [facility] 4.2.7.2.686 [place] [id number] [address] 2021-07-24 2021-07-24 Outpatient R EARLE [facility] [id number] Univers 12:45:00 14:28:27 MICHELLE roth [facility] 2021-07-24 2021-07-24 Office [facility] 1.2.565.160 [id number] Univers 12:45:00 14:28:27 Visit Michelle Vanessa RUG MEASURER 350.1.13.10 ity of [facility] 4.2.7.2.686 [place] MATERNAL [id number] Med ical & [place]ILD [address] [place] [address] 2021-07-24 2021-07-24 Outpatient R EARLE [facility] [id number] Univers 12:45:00 12:45:00 MICHELLE roth f [facility] 2021-07-04 2021-07-04 Outpatient R VIMAL [facility] [id number] Univers 08:30:00 13:58:37 MACHELLE sweeney o f [facility] 2021-07-04 2021-07-04 Stitcher Utility Lab, Ang-Rmchp [facility] 1.2.840. 114 [id number] Univers 08:30:00 13:58:37 Visit CelisMachelle RUG MEASURER 350.1.13.10 ity of [facility] 4.2.7.2.686 [place] MATERNAL [id number] [facility] & CHILD [address] [place] [address] 2021-07-04 2021-07-04 Outpatient R VIMAL [facility] [id number] Univers 08:30:00 13:58:37 ROXANNESALAZARKaron briajosh o f [facility] 2021-07-03 2021-07-03 Outpatient Rutledge_L MMG [facility] 6852 [place] 03:41:00 03:41:00 0208 Medical Group 2021-07-03 2021-07-03 [facility] 1.2.840.114 [id number] Univers 00:00:00 00:00:00 Michelle Vanessa RUG MEASURER 350.1.13.10 ity of [facility] 4.2.7.2.686 [place] MATERNAL [id number] [address] 2021-07-02 2021-07-02 Outpatient R EARLE [facility] [id number] Univers 13:15:00 14:07:04 MICHELLE sweeney o f [facility] 2021-07-02 2021-07-02 Office [facility] 1.2.986.002 [id number] Univers 13:15:00 14:07:04 Visit Michelle Vanessa RUG MEASURER 350.1.13.10 ity [facility] 4.2.7.2.686 [place] MATERNAL [phone] [facility] & CHILD [address] [place] [address] 2021-07-01 2021-07-01 Outpatient Mirella LOPEZ [facility] [id number] Univers 09:40:00 10:24:52 SHAN itjosh [facility] 2021-07-01 2021-07-01 Urgent Shan Lopez [facility] 1.2.840.114 [id number] Univers 09:40:00 10:24:52 [facility]13.10 [facility] 4.2.7.2.686 [place] SRINATH?BLEA [id number] Ne shital [address] MEDICAL OFFICE BUILDING 2021-02-02 2021-02-02 [facility] [id number] Univers 15:00:00 15:00:00 MICHELLE frasery o [facility] 2020-11-10 2020-11-10 [facility] 1.2 .840.114 [id number] Univers 12:45:21 13:04:57 Visit Michelle Og RUG MEASURER 350.1.13. 10 ity [place] [address].2.7.2.686 [place] MATERNAL [id number] [facility] [address] [place] [address] 2020-11-10 2020-11-10 [facility] [id number] Univers 13:00:00 13:00:00 MICHELLE frasery o [facility] 2020-11-10 2020-11-10 Orders Doctor NAA 1.2.840.114 [id number] Univers 00:00:00 00:00:00 Only Unassigned, REECE 350.1.13.10 ity of [place] [facility] 4.2.7.2.686 [place] [id number] [address] 2020-11-09 2020-11-09 Outpatient R [facility] [id number] Univers 13:00:00 13:00:00 ity of [facility] 2020-08-28 2020-08-28 [facility] [id number] Univers 15:45:00 15:45:00 MICHELLE frasery o [facility] 2020-08-28 2020-08-28 Outpatient [facility] [id number] Univers 15:45:00 15:45:00 MICHELLE ity o [facility] 2020-08-24 2020-08-24 Telephone [facility] 1.2.840.114 [id number] Univers 00:00:00 00:00:00 Michelle Vanessa RUG MEASURER 350.1.13.10 ity of [facility] 4.2.7.2.686 [place] MATERNAL [id number] [facility] ical & CHILD [address] [place] [address] 2020-08-17 2020-08-17 Nurse Visit, Joselyn Nurse [facility] 1.2 .840.114 [id number] Univers 14:24:26 14:39:26 Visit Michelle Og RUG MEASURER 350.1.13. 10 ity of [facility] 4.2.7.2.686 [place] MATERNAL [id number] [facility] ical & CHILD [address] [place] [address] 2020-08-17 2020-08-17 Outpatient R [facility] [id number] Univers 14:30:00 14:30:00 ity [facility] 2020-08-16 2020-08-16 Outpatient R [facility] [id number] Univers 13:30:00 13:30:00 ity [facility] 2020-08-15 2020-08-15 Patient Joe [facility] [id number] Univers 00:00:00 00:00:00 Outreach Yaakov PRIMARY [id number] i ty of [facility] [id number] [place] ENNIS [phone] [address] 2020-05-24 2020-05-24 Nurse Visit, Joselyn Nurse [facility] 1.2 .[id number] Univers 12:49:22 13:10:03 Visit Michelle Og [employer] [id number]. 10 ity of [facility] [id number] [place] as MATERNAL [phone] [facility] [address] [place] [address] 2020-05-24 2020-05-24 Outpatient R [facility] [id number] Univers 13:00:00 13:00:00 ity [facility] 2020-05-24 2020-05-24 Outpatient R EARLE [facility] [id number] Univers 13:00:00 13:00:00 MICHELLE sweeney o f [facility] 2020-03-01 2020-03-01 Nurse Visit, Joselyn Nurse [facility] 1.2 .840.114 [id number] Univers 12:54:05 13:10:54 Visit Michelle Og [employer]UG MEASURER 350.1.13. 10 ity [facility] [id number] [place] as MATERNAL [phone] [facility] & CHILD [address] [place] [address] 2020-03-01 2020-03-01 Outpatient R [facility] [id number] Univers 13:00:00 [facility] 2019-[facility]-08 2019-12-08 Office Earle [facility] [id number] Univers 14:14:17 15:41:02 Visit Michelle Vanessa [employer] ME[employer] [id number] ity [facility] [id number] [place] as MATERNAL [phone] [facility] & CHILD [address] [place] [address] 2019-12-08 2019-12-08 [facility] [id number] Univers 14:15:00 14:15:00 MICHELLE roth [facility] 2019-11-30 2019-11-30 [facility] [id number] Univers 13:15:00 13:15:00 MICHELLE roth [facility] 2019-09-07 2019-09-07 Nurse Visit, Joselyn Nurse [facility] 1.2 .840.114 [id number] Univers 09:51:25 10:45:51 Visit Michelle Og [employer] ME[employer]ER 350.1.13. 10 ity [facility] 4.2.7.2.686 [place] as MATERNAL [phone] [facility] & [address] 2019-09-07 2019-09-07 Outpatient R [facility] [id number] Univers 10:00:00 [facility] 2019-09-07 Outpatient R [place], [facility] [id number] Univers 10:00:00 10:00:00 MICHELLE roth [facility] 2019-09-07 2019-09-07 Orders Doctor JACOME 1.2.840.114 [id number] Univers 00:00:00 00:00:00 Only Unassigned, REECE 350.1.13.10 ity of [place] [facility] 4.2.7.2.686 [place] as [phone] [address] 2019-08-26 2019-08-26 Outpatient R [facility] [id number] Univers 09:00:00 09:00:00 ity of [facility] 2019-08-26 2019-08-26 Telephone [facility] 1.2.840.114 [id number] Univers 00:00:00 00:00:00 Michelle C [employer] ME[employer]URER 350.1.13.10 ity of [facility] 4.2.7.2.686 [place] as MATERNAL [phone] Med ical & CHILD [address] [place] [address] 2019-08-25 2019-08-25 Telemedici [facility] 1.2.840.114 [id number] Univers 07:58:46 08:52:37 ne Visit Michelle C RUG MEASURER 350.1.13.10 ity of [place] [id number] [place] as MATERNAL [phone] [facility] [address] [place] [address] 2019-08-25 2019-08-25 Outpatient R [facility] [id number] Univers 08:00:00 08:00:00 MICHELLE ity o f [facility] 2019-08-23 2019-08-23 Telephone [facility] 1.2.840.114 [id number] Univers 00:00:00 00:00:00 Michelle C RUG MEASURER 350.1.13.10 ity of [place] [id number] [place] as MATERNAL [phone] [facility] [address] [place] [address] Results Test Description Test Time Test Comments Results Result Comments Source POCT TEST 2022-09-03 19:15:00 Test Item Value Reference Range Interpretation Comme nts POCT PREG (test code = 1605) Negative On board controls acceptable with C Line (test code = 3574) Yes POCT PREG LOT # (test code = 3575) POCT PREG TEST DATE (test code = 3576) [id number] 19:15:00 Test Item Value Reference Range Interpretation Comments POCT PREG (test code = 1605) Negative On board controls acceptable with C Yes Line (test code = 3574) POCT PREG LOT # (test code = 3575) POCT PREG TEST DATE (test code = 3576) [facility] with [id number] 09:58:02 Test Item Value Reference Range Interpretation Comments WBC (test code = See_Comment [Automated 6690-2) message] The sy stem which generated this result transmitted reference range : 4.30 - 11.10 10*3/?L. The reference range was not used to interpret this result as normal/abnormal . RBC (test code = See_Comment L [Automated 789-8) message] The sy stem which generated this result transmitted reference range : 3.93 - 5.25 10*6/?L. The reference range was not used to interpret this result as normal/abnormal . HGB (test code = 9.3 g/dL 11.6-15 L 718-7) HCT (test code = 27.1 % 35.7-45.2 L 4544-3) MCV (test code = 96.4 fL 80.6-95.5 H 787-2) MCH (test code = 33.1 pg 25.9-32.8 H 785-6) MCHC (test code = 34.3 g/dL 31.6-35.1 786-4) RDW-SD (test code = 42.7 fL 39-49.9 33970-4) RDW-CV (test code = 12.4 % 12-15.5 788-0) PLT (test code = See_Comment L [Automated 777-3) message] The sy stem which generated this result transmitted reference range : 166 - 358 10*3/ ?L. The reference r linh was not used to interpret this result as normal/abnormal . MPV (test code = 10.0 fL 9.5-12.9 00129-4) NRBC/100 WBC (test See_Comment [Automat ed code = 3710943824) message] The system which generated this result transmitted reference range : 0.0 - 10.0 /100 WBCs. The refer ence range was not u sed to interpret th is result as normal/abnormal . NRBC x10^3 (test code See_Comment [Auto mated = 6532071555) message] The s ystem which generated this result transmitted reference range : 10*3/?L. The reference range was not used to interpret this result as normal/abnormal . GRAN MAT (NEUT) % 61.5 % (test code = 770-8) IMM GRAN % (test code 0.40 % = 7225078162) LYMPH % (test code = 29.7 % 736-9) MONO % (test code = 8.3 % 5905-5) EOS % (test code = 0.0 % 713-8) BASO % (test code = 0.1 % 706-2) GRAN MAT x10^3(ANC) 4.45 10*3/uL 1.88-7.09 (test code = 2548528130) IMM GRAN x10^3 (test 0.03 10*3/uL 0-0.06 code = 8927940476) LYMPH x10^3 (test code 2.15 10*3/uL 1.32-3.29 = 731-0) MONO x10^3 (test code 0.60 10*3/uL 0.33-0.92 = 742-7) EOS x10^3 (test code = 0.03-0.39 L 711-2) BASO x10^3 (test code 0.01-0.07 = 704-7) Lab Interpretation Abnormal (test code = 32550-7) [facility] - [id number] 08:11:36 Test Item Value Reference Range Interpretation Comments RPR (Qualitative) (test code = Nonreactive Nonreactive 12571-8) Lab Interpretation (test code = Normal 75441-3) [facility]) IMMUNE [id number] 01:06:41 Test Item Value Reference Range Interpretation Comments RHIG CANDIDATE? No- see comment Patient i s not a (test code = candidate for R hIg- 5055) Patient is Rh Positive.Perfor med at [facility] Laboratory Services - [facility] Blood [address] [place] [address]Rsss Free: [phone] A No. [id number] [facility] CenterHEPATITIS B SURFACE [id number] 20:29:54 Test Item Value Reference Range Interpretation Comments HBsAg Semi-Quantitative (test code = Negative Negative 5195-3) [facility] Screen - ONCE [id number] 14:07:26 Test Item Value Reference Range Interpretation Comments ABO & RH (test code O Positive Performe d at [facility] = 20) Laboratory Serv [facility] Blood Bank[address] [place], [place] [address]Toll Free: [phone] A No. [id number] IAT (test code = Negative Performed a t [facility] 1185) Laboratory Serv [facility] Blood [facility] [place], [place] [address]Toll Free: [phone] A No. [id number] [facility] CenterLACTATE [id number] 13:49:38 Test Item Value Reference Range Interpretation Comments LDH (test code = 1353947597) 222 U/L 120-246 Lab Interpretation (test code = Normal 23289-9) [facility] WITH [id number] 13:35:36 Test Item Value Reference Range Interpretation Comments WBC (test code = See_Comment [Automated 0590-2) message] The sy stem which generated this result transmitted reference range : 4.30 - 11.10 10*3/?L. The reference range was not used to interpret this result as normal/abnormal . RBC (test code = See_Comment L [Automated 979-8) message] The sy stem which generated this result transmitted reference range : 3.93 - 5.25 10*6/?L. The reference range was not used to interpret this result as normal/abnormal . HGB (test code = 11.0 g/dL 11.6-15 L 718-7) HCT (test code = 31.7 % 35.7-45.2 L 4544-3) MCV (test code = 94.9 fL 80.6-95.5 787-2) MCH (test code = 32.9 pg 25.9-32.8 H 785-6) MCHC (test code = 34.7 g/dL 31.6-35.1 786-4) RDW-SD (test code = 44.1 fL 39-49.9 96564-3) RDW-CV (test code = 12.8 % 12-15.5 788-0) PLT (test code = See_Comment L [Automated 777-3) message] The sy stem which generated this result transmitted reference range : 166 - 358 10*3/ ?L. The reference r linh was not used to interpret this result as normal/abnormal . MPV (test code = 9.4 fL 9.5-12.9 L 75583-5) NRBC/100 WBC (test See_Comment [Automat ed code = 7163966384) message] The system which generated this result transmitted reference range : 0.0 - 10.0 /100 WBCs. The refer ence range was not u sed to interpret th is result as normal/abnormal . NRBC x10^3 (test code See_Comment [Auto mated = 3857350984) message] The s ystem which generated this result transmitted reference range : 10*3/?L. The reference range was not used to interpret this result as normal/abnormal . GRAN MAT (NEUT) % 61.9 % (test code = 770-8) IMM GRAN % (test code 0.50 % = 6050261500) LYMPH % (test code = 30.1 % 736-9) MONO % (test code = 7.3 % 5905-5) EOS % (test code = 0.0 % 713-8) BASO % (test code = 0.2 % 706-2) GRAN MAT x10^3(ANC) 3.40 10*3/uL 1.88-7.09 (test code = 4918799288) IMM GRAN x10^3 (test 0.03 10*3/uL 0-0.06 code = 1430921195) LYMPH x10^3 (test code 1.65 10*3/uL 1.32-3.29 = 731-0) MONO x10^3 (test code 0.40 10*3/uL 0.33-0.92 = 742-7) EOS x10^3 (test code = 0.03-0.39 L 711-2) BASO x10^3 (test code 0.01-0.07 = 704-7) Lab Interpretation Abnormal (test code = 25923-4) [facility] WITH [id number] 13:32:34 Test Item Value Reference Range Interpretation Comments HIV Negative Negative Semi-quantitative (test code = 14957-6) QUINCY (test code = Non-reactive for HIV-1 QUINCY) antigen and HIV-1/HIV-2 antibodies. ?No laboratory evidence of HIV infection. ?Repeat in 2-4 weeks if acute HIV infection is suspected. [facility] CenterURIC [id number] 13:31:54 Test Item Value Reference Range Interpretation Comments URIC ACID (test code = 6945219902) 5.9 mg/dL 2.9-6 Lab Interpretation (test code = Normal 94465-4) [facility]. METABOLIC PANEL (19701)2022-03-13 12:52:13 Test Item Value Reference Range Interpretation Comments NA (test code = 135 mmol/L 135-145 8780316081) K (test code = 3.7 mmol/L 3.5-5 3128204915) CL (test code = 104 mmol/L 98-108 8595966468) CO2 TOTAL (test code = 20 mmol/L 23-31 L 0987386978) AGAP (test code = 2-16 0311059343) BUN (test code = 6 mg/dL 7-23 L 8474959169) GLUCOSE (test code = 67 mg/dL 70-110 L 5903165919) CREATININE (test code = 0.60 mg/dL 0.5-1.04 8248866367) TOTAL BILI (test code = 0.6 mg/dL 0.1-1.2 4499532945) CALCIUM (test code = 8.7 mg/dL 8.6-10.6 3372236934) T PROTEIN (test code = 6.4 g/dL 6.3-8.2 8670134616) ALBUMIN (test code = 3.8 g/dL 3.5-5 6878202887) ALK PHOS (test code = 200 U/L 34-122 H 7075318372) ALTv (test code = 13 U/L 5-35 1742-6) AST(SGOT) (test code = 23 U/L 13-40 4563302292) eGFR (test code = mL/min/1.73m2 6198048016) QUINCY (test code = QUINCY) Association of Glomerular Filtration Rate (GFR) and Staging of Kidney Disease* + --+ --+ ------+| GFR (mL/min/1.73 m2) ?| With Kidney Damage ?| ?Without Kidney Damage+ --------+ --------+ +| ?>90 ?| ?Stage one ?| ? Normal ?+ ---+ ---+ -------+| ?60-89 ?| ?Stage two ?| ? Decreased GFR ? + --+ --+ ------+| ?30-59 ?| ?Stage three ?| ? Stage three ? + --+ --+ ------+| ?15-29 ?| ?Stage four ? | ? Stage four ?+ ---+ ---+ -------+| ?<15 (or dialysis) ? ?| ?Stage five ? | ? Stage five ?+ ---+ ---+ -------+ *Each stage assumes the associated GFR level has been in effect for at least three months. ?Stages 1 to 5, with or without kidney disease, indicate chronic kidney disease. Notes: Determination of stages one and two (with eGFR >59mL/min/1.73 m2) requires estimation of kidney damage for at least three months as defined by structural or functional abnormalities of the kidney, manifested by either:Pathological abnormalities or Markers of kidney damage (including abnormalities in the composition of the blood or urine or abnormalities in imaging tests). Lab Interpretation Abnormal (test code = 37896-8) [facility] URINALYSIS W/O SPECIFIC [id number] 22:15:00 Test Item Value Reference Range Interpretation Comments POCT PH U (test code = 3254) N/A 5-8 POCT U LEUK EST (test code = N/A Negative - Negative 3263) POCT U NIT (test code = 3262) N/A Negative - Negative POCT U PROT (test code = 3259) Trace Negative - Negative POCT U GLU (test code = 3256) 1+ Negative - Negative POCT U KETONE (test code = 3258) Negative Negative - Negative POCT U BLD (test code = 3257) Negative Negative - Negative [facility] URINALYSIS W/O SPECIFIC [id number] 20:35:00 Test Item Value Reference Range Interpretation Comments POCT PH U (test code = 3254) N/A 5-8 POCT U LEUK EST (test code = N/A Negative - Negative 3263) POCT U NIT (test code = 3262) N/A Negative - Negative POCT U PROT (test code = 3259) Negative Negative - Negative POCT U GLU (test code = 3256) 2+ Negative - Negative POCT U KETONE (test code = 3258) N/A Negative - Negative POCT U BLD (test code = 3257) N/A Negative - Negative [facility] ONLY - [id number] 09:12:19 Test Item Value Reference Range Interpretation Comments RPR (Qualitative) (test code = Nonreactive Nonreactive 88640-0) Lab Interpretation (test code = Normal 13629-6) [facility] CenterPRENATAL WORKUP, BLOOD [id number] 03:44:34 Test Item Value Reference Range Interpretation Comments ABO & RH (test code O POSITIVE Performe d at [facility] = 20) Laboratory Serv [facility] Blood Bank3 [facility] [address] Free: [phone] A No. [id number] IAT (test code = Negative Performed a t [facility] 1185) Laboratory Serv [facility] Blood Bank3 [facility] s [address]Pvde Free: [phone] A No. [id number] [facility]2 AG-AB WITH [id number] 23:52:50 Test Item Value Reference Range Interpretation Comments HIV Negative Negative Semi-quantitative (test code = 68134-3) QUINCY (test code = Non-reactive for HIV-1 QUINCY) antigen and HIV-1/HIV-2 antibodies. ?No laboratory evidence of HIV infection. ?Repeat in 2-4 weeks if acute HIV infection is suspected. [facility] CenterGLUCOSE 1 HOUR POST [id number] 23:11:22 Test Item Value Reference Range Interpretation Comments GLUC 1 HR (test code = 0832527086) 97 mg/dL 120-170 L Lab Interpretation (test code = Abnormal 47420-2) [facility] WITH [id number] 20:45:41 Test Item Value Reference Range Interpretation Comments WBC (test code = See_Comment [Automated 6690-2) message] The sy stem which generated this result transmitted reference range : 4.30 - 11.10 10*3/?L. The reference range was not used to interpret this result as normal/abnormal . RBC (test code = See_Comment L [Automated 789-8) message] The sy stem which generated this result transmitted reference range : 3.93 - 5.25 10*6/?L. The reference range was not used to interpret this result as normal/abnormal . HGB (test code = 10.0 g/dL 11.6-15 L 718-7) HCT (test code = 29.7 % 35.7-45.2 L 4544-3) MCV (test code = 96.7 fL 80.6-95.5 H 787-2) MCH (test code = 32.6 pg 25.9-32.8 785-6) MCHC (test code = 33.7 g/dL 31.6-35.1 786-4) RDW-SD (test code = 42.8 fL 39-49.9 25638-2) RDW-CV (test code = 12.4 % 12-15.5 788-0) PLT (test code = See_Comment [Automated 777-3) message] The sy stem which generated this result transmitted reference range : 166 - 358 10*3/ ?L. The reference r linh was not used to interpret this result as normal/abnormal . MPV (test code = 9.3 fL 9.5-12.9 L 70602-8) NRBC/100 WBC (test See_Comment [Automat ed code = 6803063447) message] The system which generated this result transmitted reference range : 0.0 - 10.0 /100 WBCs. The refer ence range was not u sed to interpret th is result as normal/abnormal . NRBC x10^3 (test code See_Comment [Auto mated = 7128934741) message] The s ystem which generated this result transmitted reference range : 10*3/?L. The reference range was not used to interpret this result as normal/abnormal . GRAN MAT (NEUT) % 70.5 % (test code = 770-8) IMM GRAN % (test code 0.30 % = 3763627598) LYMPH % (test code = 21.8 % 736-9) MONO % (test code = 6.7 % 5905-5) EOS % (test code = 0.6 % 713-8) BASO % (test code = 0.1 % 706-2) GRAN MAT x10^3(ANC) 4.83 10*3/uL 1.88-7.09 (test code = 7257556851) IMM GRAN x10^3 (test 0-0.06 code = 6354282954) LYMPH x10^3 (test code 1.49 10*3/uL 1.32-3.29 = 731-0) MONO x10^3 (test code 0.46 10*3/uL 0.33-0.92 = 742-7) EOS x10^3 (test code = 0.04 10*3/uL 0.03-0.39 711-2) BASO x10^3 (test code 0.01-0.07 = 704-7) Lab Interpretation Abnormal (test code = 63398-0) [facility]"
[2023-01-23 09:06] LABS: Absolute Lymphocytes (CBC) 0.9 K/uL (0.7-4.9); Hematocrit 29.2 % (36.0-45.0); Lymphocytes % 37.6 % (15.3-44.8); MCV 92.2 fL (80-100); MPV 6.5 fL (7.6-11.3); Platelets 214 thou/uL (152-406); RBC Red Blood Cell Count 3.17 M/uL (3.86-4.86)
[2023-01-23 09:12] LABS: Protime INR 1.08
--- NOTE | 2023-01-23 09:13 | RAD REPORT ---
EXAM DESCRIPTION: CT - Head Brain Wo Cont - 01/23/2023 8:57 am CLINICAL HISTORY: Headache COMPARISON: none TECHNIQUE: Computed axial tomography of the head was obtained. IV contrast was not requested. All CT scans are performed using dose optimization technique as appropriate and may include automated exposure control or mA/KV adjustment according to patient size. FINDINGS: An intracranial bleed is not seen The ventricles are normal in caliber No significant hypodense areas within the brain visualized No extra-axial fluid collection is noted. Fluid within the sinuses/ mastoids is not seen IMPRESSION: No acute intracranial abnormality is seen If patient's symptoms persist MRI of the brain would be recommended
--- NOTE | 2023-01-23 09:24 | RAD REPORT ---
EXAM DESCRIPTION: Patricia Single View01/23/2023 9:11 am CLINICAL HISTORY: Chest pain COMPARISON: none FINDINGS: The lungs appear clear of acute infiltrate. The heart is normal size IMPRESSION: No acute abnormalities displayed
[2023-01-23 09:30] LABS: ALT/SGPT 12 U/L (13-56); AST/SGOT 9 U/L (15-37); Albumin 3.7 g/dL (3.4-5.0); Alkaline Phosphatase 91 U/L (45-117); BUN Blood Urea Nitrogen 20 mg/dL (7-18); Bicarbonate 22 mEq/L (21-32); Bilirubin Direct 0.1 mg/dL (0-0.2); Bilirubin Indirect, Calculated 0.2 mg/dL (0.2-0.8); Bilirubin Total 0.3 mg/dL (0.2-1.0); Glomerular Filtration Rate 110 ml/min (=/>90); Glucose Level 90 mg/dL (74-106); Potassium 3.5 mEq/L (3.5-5.1); Sodium Level 143 mEq/L (136-145); Troponin High Sensitivity 3.8 pg/mL (<58.9)
--- NOTE | 2023-01-23 10:09 | EDPHYS ---
Physician Documentation [facility] Name: Mike Muhammad Age: 27 yrs Sex: Female : 1995 Arrival Date: 01/23/2023 Time: 08:19 Bed 16 Private MD: ED Physician Jimmy Low HPI: 01/23 08:30 This 27 yrs old Black Female presents to ER via Ambulatory with complaints of Probable jh7 Seizure, Ringworms On Head. 08:30 The patient presents with a history of multiple seizures, an unknown number, that last jh7 5 minute(s), the episode(s) was witnessed, by a significant other. 27-year-old female presents for chronic seizures and fungal infection on the head. The patient states that she fell down the stairs 3 weeks ago and developed a wound on her head that she was told was a fungal infection. The patient states that she used to have seizures years ago and was on Keppra, but stopped the Keppra due to it making her feel depressed. Stated that the seizure started again 3 weeks ago and that she develops right-sided numbness and chest pain before her seizure. She states that her told her that the seizures lasted about 5 minutes and that sometimes she forgets to breathe during them.. 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 - Social history:: Smoking status: Patient denies any tobacco usage or history of. ROS: 08:30 Constitutional: Negative for fever, chills, and weight loss, Eyes: Negative for injury, jh7 pain, redness, and discharge, Neck: Negative for injury, pain, and swelling, Cardiovascular: Negative for chest pain, palpitations, and edema, Respiratory: Negative for shortness of breath, cough, wheezing, and pleuritic chest pain, Abdomen/GI: Negative for abdominal pain, nausea, vomiting, diarrhea, and constipation, Back: Negative for injury and pain, MS/Extremity: Negative for injury and deformity. 08:30 Skin: Positive for rash. 08:30 Neuro: Positive for seizure activity, Negative for dizziness, gait disturbance, headache, visual changes, weakness. 08:30 All other systems are negative. Exam: 08:30 Constitutional: This is a well developed, well nourished patient who is awake, alert, jh7 and in no acute distress. Head/Face: Normocephalic, atraumatic. Eyes: Pupils equal round and reactive to light, extra-ocular motions intact. Lids and lashes normal. Conjunctiva and sclera are non-icteric and not injected. Cornea within normal limits. Periorbital areas with no swelling, redness, or edema. ENT: Nares patent. No nasal discharge, no septal abnormalities noted. Tympanic membranes are normal and external auditory canals are clear. Oropharynx with no redness, swelling, or masses, exudates, or evidence of obstruction, uvula midline. Mucous membranes moist. Neck: Trachea midline, no thyromegaly or masses palpated, and no cervical lymphadenopathy. Supple, full range of motion without nuchal rigidity, or vertebral point tenderness. No Meningismus. Cardiovascular: Regular rate and rhythm with a normal S1 and S2. No gallops, murmurs, or rubs. Normal PMI, no JVD. No pulse deficits. Respiratory: Lungs have equal breath sounds bilaterally, clear to auscultation and percussion. No rales, rhonchi or wheezes noted. No increased work of breathing, no retractions or nasal flaring. Abdomen/GI: Soft, non-tender, with normal bowel sounds. No distension or tympany. No guarding or rebound. No evidence of tenderness throughout. MS/ Extremity: Pulses equal, no cyanosis. Neurovascular intact. Full, normal range of motion. Neuro: Awake and alert, GCS 15, oriented to person, place, time, and situation. Cranial nerves II-XII grossly intact. Motor strength 5/5 in all extremities. Sensory grossly intact. Cerebellar exam normal. Normal gait. 08:30 Skin: on the scalp, Hairless scaling areas on the skin that the patient describes as pruritic. No erythema, induration, purulent drainage, or signs of bacterial infection present.. Vital Signs: 08:28 BP 156 / 88; Pulse 84; Resp 16; Temp 99.1; Pulse Ox 100% on R/A; Pain 5/10; ll1 09:30 BP 122 / 90; Pulse 84; Resp 16; Pulse Ox 100% on R/A; db 10:00 BP 127 / 82; Pulse 84; Resp 16; Pulse Ox 100% on R/A; db 08:28 Pain Scale: Adult ll1 [place] Coma Score: 08:31 Eye Response: spontaneous(4). Motor Response: obeys commands(6). Verbal Response: ll1 oriented(5). Total: 15. MDM: 08:23 Patient medically screened. [facility] 10:10 Differential diagnosis: seizure, TIA, Tinea capitis, kerion. Data reviewed: vital [facility] signs, nurses notes, lab test result(s), EKG, radiologic studies, CT scan, plain films. I considered the following discharge prescriptions or medication management in the emergency department Medications were administered in the Emergency Department. See MAR. Independent interpretation of the following test(s) in the Emergency Department EKG: See my EKG interpretation above. Counseling: I had a detailed discussion with the patient and/or guardian regarding the historical points, exam findings, and any diagnostic results supporting the discharge/admit diagnosis, the need for outpatient follow up, a neurologist, to return to the emergency department if symptoms worsen or persist or if there are any questions or concerns that arise at home. Response to treatment: the patient's symptoms have markedly improved after treatment. Special discussion: Based on the history and exam findings, there is no indication for further emergent testing or inpatient evaluation. I discussed with the patient/guardian the need to see the neurologist for further evaluation of the symptoms. ED course: The patient remained hemodynamically stable throughout the ER visit. Informed her that all labs and imaging were normal. She was advised to follow-up with her neurologist to request a different seizure medication instead of Keppra. If she develops any new concerning symptoms, she may return to the ER for further eval. The patient understood the plan of care.. 01/23 08:32 Order name: Acetaminophen; Complete Time: 09:41 [facility] 01/23 08:32 Order name: Basic Metabolic Panel; Complete Time: :41 [facility] 01/23 08:32 Order name: CBC with Diff; Complete Time: 09:15 [facility] 01/23 08:32 Order name: ETOH Level; Complete Time: 09:41 [facility] 01/23 08:32 Order name: Hepatic Function; Complete Time: :41 [facility] 01/23 08:32 Order name: PT-INR; Complete Time: 09:15 [facility] 01/23 08:32 Order name: Ptt, Activated; Complete Time: 09:15 [facility] 01/23 08:32 Order name: Salicylate; Complete Time: 10:06 [facility] 01/23 08:32 Order name: Urinalysis w/ reflexes; Complete Time: 14:49 [facility] 01/23 14:49 Interpretation: UBACT 20-50. [facility] 01/23 08:32 Order name: Urine Drug Screen; Complete Time: 14:49 [facility] 01/23 08:32 Order name: Troponin High Sensitivity; Complete Time: 09:41 [facility] 01/23 08:32 Order name: CT Head Brain wo Cont; Complete Time: 09:15 [facility] 01/23 08:33 Order name: XRAY Chest (1 view); Complete Time: 09:25 [facility] 01/23 08:32 Order name: EKG; Complete Time: 08:33 [facility] 01/23 08:32 Order name: EKG - Nurse/Tech; Complete Time: 09:39 [facility] 01/23 08:32 Order name: IV Saline Lock; Complete Time: 09:39 [facility] 01/23 08:32 Order name: Labs collected and sent; Complete Time: 09:39 [facility] EC:48 Rate is 81 beats/min. Rhythm is regular. QRS [place] is Normal. MA interval is normal at [facility] 156 msec. QRS interval is normal at 70 msec. QT interval is normal at 372 msec. No Q waves. T waves are Normal. No ST changes noted. Clinical impression: Normal ECG. Administered Medications: 10:18 Drug: Ketorolac IVP 30 mg Route: IVP; Site: right antecubital; db 10:53 Follow up: Response: No adverse reaction db Disposition: 11:10 Co-signature as Attending Physician, Jimmy Low MD I reviewed the patient's care rn provided by the Advanced Practice Provider and agree with the diagnosis and treatment plan. Disposition Summary: 01/23/23 10:08 Discharge Ordered Location: Home [facility] Problem: an ongoing problem [facility] Symptoms: are unchanged [facility] Condition: Stable [facility] Diagnosis - Tinea capitis 7 - Other seizures [facility] Followup: [facility] - With: Private Physician - When: 2 - 3 days - Reason: Recheck today's complaints Discharge Instructions: - Discharge Summary Sheet [facility] - Epilepsy 7 - Rash, Adult jh7 - Seizure, Adult jh7 Forms: - Medication Reconciliation Form [facility] - Thank You Letter [facility] - Patient Portal Instructions [facility] - Leadership Thank You Letter [facility] Prescriptions: - terbinafine HCl 250 mg Oral tablet - take 1 tablet by ORAL route daily for 6 wks; 42 tablet; Refills: 0, Product [facility] Selection Permitted Signatures: Dispatcher [employer] Jimmy Mcgovern MD MD rn Lewis, Lynsay, RN RN [facility] Janel Bhatt [place] [id number] Joana Green RN RN db
--- NOTE | 2023-01-23 10:09 | ER ---
Nurse's Notes [facility] Name: Mike Muhammad Age: 27 yrs Sex: Female : 1995 Arrival Date: 01/23/2023 Time: 08:19 Bed 16 Private MD: Diagnosis: Tinea capitis;Other seizures Presentation: 01/23 08:28 Chief complaint: Patient states: States possible ringworms to scalp area for over 1 ll1 week. Sites on scalp causes her severe pain, which leads to her having more seizures than usual. Coronavirus screen: Vaccine status: Patient reports receiving the 2nd dose of the covid vaccine. Client denies travel out of the [place] in the last 14 days. At this time, the client does not indicate any symptoms associated with coronavirus-19. Ebola Screen: Patient denies travel to an Ebola-affected area in the 21 days before illness onset. Initial Sepsis Screen: Does the patient meet any 2 criteria? No. Patient's initial sepsis screen is negative. Does the patient have a suspected source of infection? No. Patient's initial sepsis screen is negative. Risk Assessment: Do you want to hurt yourself or someone else? Patient reports no desire to harm self or others. Onset of symptoms was January 14, 2023. 08:28 Method Of Arrival: Ambulatory ll1 08:28 Acuity: WILIAM 3 ll1 Triage Assessment: 08:31 General: Appears in no apparent distress. Behavior is calm, cooperative, appropriate ll1 for age. Pain: Complains of pain in scalp Quality of pain is described as aching. Neuro: Reports headache possible seizures. Derm: Reports possible ringworm infection to scalp area. 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 - Social history:: Smoking status: Patient denies any tobacco usage or history of. Screenin:[address] [facility] ED Fall Risk Assessment (Adult) History of falling in the last 3 months, db including since admission No falls in past 3 months (0 pts) Score/Fall Risk Level 0 - 2 = Low Risk Oriented to surroundings, Maintained a safe environment. Abuse screen: Denies threats or abuse. Denies injuries from another. Nutritional screening: No deficits noted. Tuberculosis screening: No symptoms or risk factors identified. Assessment: 09:00 Reassessment: Patient appears in no apparent distress at this time. Patient and/or db family updated on plan of care and expected duration. Pain level reassessed. Patient is alert, oriented x 3, equal unlabored respirations, skin warm/dry/pink. General: Appears in no apparent distress. comfortable, Behavior is calm, cooperative. 10:51 Reassessment: Patient appears in no apparent distress at this time. Patient and/or db family updated on plan of care and expected duration. Pain level reassessed. Patient is alert, oriented x 3, equal unlabored respirations, skin warm/dry/pink. Patient states feeling better. Patient states symptoms have improved. Vital Signs: 08:28 BP 156 / 88; Pulse 84; Resp 16; Temp 99.1; Pulse Ox 100% on R/A; Pain 5/10; ll1 09:30 BP 122 / 90; Pulse 84; Resp 16; Pulse Ox 100% on R/A; db 10:00 BP 127 / 82; Pulse 84; Resp 16; Pulse Ox 100% on R/A; db 08:28 Pain Scale: Adult ll1 [place] Coma Score: 08:31 Eye Response: spontaneous(4). Motor Response: obeys commands(6). Verbal Response: ll1 oriented(5). Total: 15. ED Course: 08:20 Patient arrived in ED. rg4 08:23 [facility] jh7 08:23 Jimmy Low MD is Attending Physician. jh7 08:27 Arm band placed on Patient placed in an exam room, on a stretcher. ll1 08:31 Triage completed. ll1 08:33 Joana Green, RN is Primary Nurse. db 08:50 Inserted saline lock: 20 gauge in right antecubital area, using aseptic technique. db Blood collected. 08:58 CT Head Brain wo Cont In Process Unspecified. EDMS 09:00 Seizure precautions initiated. Bed in low position. Call light in reach. Side rails up db X 1. Pulse ox on. NIBP on. 09:13 XRAY Chest (1 view) In Process Unspecified. EDMS 10:51 Patient has correct armband on for positive identification. Provided Education on: db discharge. 10:51 No provider procedures requiring assistance completed. IV discontinued, intact, db bleeding controlled, No redness/swelling at site. Administered Medications: 10:18 Drug: Ketorolac IVP 30 mg Route: IVP; Site: right antecubital; db 10:53 Follow up: Response: No adverse reaction db Medication: 10:51 VIS not applicable for this client. db Outcome: 10:08 Discharge ordered by MD. mcclure 10:51 Discharged to home ambulatory. db 10:51 Condition: stable 10:51 Discharge instructions given to patient, Instructed on discharge instructions, follow up and referral plans. Prescriptions given X 1. 10:53 Patient left the ED. db Signatures: Dispatcher [employer] EDMS Ambreen Lamar rg4 Rufus Lindsay, RN RN 1 Janel Bhatt FNP CONCRETE FINISHING MACHINE OPERATOR 7 Joana Green RN RN db
[2023-01-23] MEDS ORDERED: KETOROLAC 30 MG/ML INJ ONE (10:27)
[2023-01-23 10:46] LABS: Specific Gravity 1.026 (1.005-1.030); Urine Bacteria 20-50 /HPF (<20); Urine Bilirubin NEGATIVE (Negative); Urine Blood Negative (Negative); Urine Clarity Turbid (Clear); Urine Color Light-Yellow (Yellow); Urine Glucose NEGATIVE (Negative); Urine Mucus 2+ /HPF (None Seen); Urine Protein TRACE (Negative); Urine RBC <5 /HPF (None Seen); Urine Urobilinogen Normal (Normal)
[2023-01-23 10:51] LABS: Barbiturates NEGATIVE (NEGATIVE); Benzodiazepines NEGATIVE (NEGATIVE); Cocaine NEGATIVE (NEGATIVE); METHAMPHETAM NEGATIVE (NEGATIVE); Methadone NEGATIVE (NEGATIVE); Opiates NEGATIVE (NEGATIVE); Phencyclidine NEGATIVE (NEGATIVE); THC Cannibis POSITIVE (NEGATIVE)
[2023-01-23 11:00] VITALS: O2SAT 100
[2023-01-23 11:02] VITALS: TEMP 99.1
[2023-01-23 11:03] VITALS: BP 127/82
--- NOTE | 2023-01-24 15:24 | EKG ---
Test Date: 2023-01-23 Test Time: 08:48:21 [employer]: KAMAR MEASUREMENT RESULTS: Intervals: Rate: 81 [place]: 156 QRSD: 70 QT: 372 QTc: 432 [place]: P: 54 [place]: 156 QRS: 30 T: 33 INTERPRETIVE STATEMENTS: Normal sinus rhythm Normal ECG Compared to ECG 03/13/2001 10:54:00 No significant changes Electronically Signed On 01-24-23 15:21:57 CDT by Caio Ocampo
== END 2023-01-23 10:53 | disposition home or self-care (01) ==
LOC: ER 08:19
DX: B35.0 Tinea barbae and tinea capitis (principal); R56.9 Unspecified convulsions
CPT/HCPCS: 36415; 70450; 71045; 80048; 80076; 80143; 80179; 80307; 81001; 82077; 84484; 85025; 85610; 85730; 93005; 96374; 99284

== ENCOUNTER 2024-08-03 14:16 | Emergency (ER) | payer OTHER ==
--- OUTSIDE RECORDS SUMMARY | 2024-08-03 14:25 | XMS REPORT | Continuity of Care Document ---
Author Name Unknown Address [address] [facility] [address] [place] [address] [facility] [place] Address [address] [facility] [place] [address] Care Team Providers Care Stoker Erector And Servicer Name Role Phone Pcp, Patient Does Not Have A Primary Care Physic kasey IVETT ROSENBERG Attending Clinician Unavailable Ivett Mcbride Attending Clinician [phone] Doctor Unassigned, [place] Attending Clinician U navailable Michelle Bradley Attending Clinician + MICHELLE OG Attending Clinician Unavail able Jud Means CNM Attending Clinician [phone] JUD MEANS Attending Clinician Unavaila ble Lab, [facility] Attending Clinician Unavailable Visit, [facility] Nurse Attending Clinician Unava ilmona Doctor Unassigned, [place] Attending Clinician U JAQUELINE Croft Attending Clinician UnavailJAQUELINE June Attending Clinician Unavaila elin Nurse, [facility] Attending Clinician Unavailable Coby Adams MD Attending Clinician + [phone] COBY ADAMS Attending Clinician Unaralph NAPIER, KOTA FONTENOT Attending Clinician Unavailable Marco Antonio Billingsley MD Attending Clinician [phone] Kota Napier MD Attending Clinician [phone] Watson Daly CRNA Attending Clinician + [phone] Eliu Villalobos CRNA Attending Clinician [phone] Andrea Teixeira MD Attending Clinician +[phone] JANES HERNANDEZ Attending Clinician Unavailable [facility] Attending Clinician Unavailable Janes Hernandez PA-C Attending Clinician [phone] Walt Khoury MD Attending Clinician [phone], [facility] Attending Clinician Unavailable VIVIEN_HERMINIA Attending Clinician Unavailable ANDRÉS PERAZA Attending Clinician UnavailAndrés Louise MD Attending Clinician + [phone] Ultrasound, [facility] Attending Clinician UnavailSybil Perez MD Attending Clinician [phone] SYBIL WOODARD Attending Clinician Unavailable SYBIL WOODARD Attending Clinician Unavailable 1, [facility] Attending Clinician Unavailab Dm Montgomery MD Attending Clinician [phone] WALT KHOURY Attending Clinician Unavailable Tiarra Looney LVN Attending Clinician [phone] Abhinav Burnham Attending Clinician [phone] Aman Borden DO Attending Clinician [phone] Walt Flores RN Attending Clinician Unavailable PABLO JARVIS Attending Clinician Unavailable Pablo Pugh Attending Clinician [phone] Pob, [facility] Lab Main Attending Clinician Unavailabl MACHELLE Goldstein Attending Clinician Unavailab lucio Celis RADIO ELECTRICIAN, Machelle Vu Attending Clinician + [phone] Victor Manuel Attending Clinician Unavailable SHAN HARRY Attending Clinician Unavailable Piero RADIO ELECTRICIAN, Shan Attending Clinician [phone] Jones RADIO ELECTRICIAN, Tonia Attending Clinician [phone] Yaakov Diaz DO Attending Clinician KOTA NAPIER Admitting Clinician Unavailable Quyen VILLALOBOS, Kota Fontenot Admitting Clinician [phone] LISTER_HERMINIA Admitting Clinician Unavailable ANDRÉS PERAZA Admitting Clinician Unavailkaron Peraza MD, Andrés Sullivan Admitting Clinician +[phone] WALT KHOURY Admitting Clinician Unavailable Walt Khoury MD Admitting Clinician +[phone] Victor Manuel Admitting Clinician Unavailable Payers Payer Name Policy Type Policy Number Effective Date Expirati on Date Source [facility] [id number] 2016 00:00:00 2019 00:00:00 [facility] [id number] 2023 00:00:00 [facility] [id number] 2016 00:00:00 [facility] (MEDICAID HMO) [id number] 2016 00:00:00 Problems Condition Name Condition Details Condition Category Status Onset Date Resolution Date Last Treatment Date Treating Clinician Comments Source Early syphilis, genital (primary) Early syphilis, genital (primary) Disease Active 2022-05 00:00: 00 Overview: Formattin g of this note might be different from the original. Pending treatment [facility] Early syphilis, latent Early syphilis, latent Disease Active 2022-05 00:00: 00 Overview: Formattin g of this note might be different from the original. Pending treatment [facility] Anemia of mother in , antepartum Anemia of mother in , antepartum Disease Active 916 00:00: 00 [facility] Seizures Seizures Disease Active 4-07 00:00: 00 [facility] Nausea and vomiting during prior to 22 weeks gestation Nausea and vomiting during prior to 22 weeks gestation Disease Active 0 3-16 00:00: 00 [facility] Lump or mass in breast Lump or mass in breast Disease Active 2-07 00:00: 00 [facility] Other depression Other depression Disease Active 0 7-15 00:00: 00 [facility] Carotidyni a Carotidyni a Disease Active 2016-05 2-22 00:00: 00 [facility] Encounter for initial prescripti on of injectable contracept kevin Encounter for initial prescripti on of injectable contracept kevin Disease Resolve d 0 4-16 00:00: 00 2024-03-10 00:00:00 2024-03-10 15:39:59 [facility] Encounter for well woman exam with routine gynecologi victro hugo exam Encounter for well woman exam with routine gynecologi victor hugo exam Disease Resolve d 0 9-16 00:00: 00 2024-03-10 00:00:00 2024-03-10 15:39:53 [facility] Obesity (BMI 30-39.9) Obesity (BMI 30-39.9) Disease Resolve d 0 3-30 00:00: 00 2024-03-09 00:00:00 2024-03-09 16:09:40 [facility] Facial ringworm Facial ringworm Disease Resolve d 2022-05 2-07 00:00: 00 2023-06-17 00:00:00 2023-06-17 13:31:37 [facility] BMI 29.0-29.9, adult BMI 29.0-29.9, adult Disease Resolve d 0 4-16 00:00: 00 2023-06-17 00:00:00 2023-06-17 09:30:57 [facility] Vaginal discharge during in third trimester Vaginal discharge during in third trimester Disease Resolve d 2021-05 0-11 00:00: 00 2023-06-17 00:00:00 2023-06-17 09:30:52 [facility] Boil, groin Boil, groin Disease Resolve d 2021-1 0-11 00:00: 00 2023-06-17 00:00:00 2023-06-17 09:30:59 [facility] Supervisio n of high risk , antepartum Supervisio n of high risk , antepartum Disease Resolve d 2021-05 0-19 00:00: 00 2023-05-01 00:00:00 2023-05-01 09:15:33 [facility] Oligohydra mnios in third trimester Oligohydra mnios in third trimester Disease Resolve d 1 0-19 00:00: 00 2023-05-01 00:00:00 2023-05-01 09:15:35 [facility] Liveborn , of escobar , born in hospital by vaginal delivery Liveborn infant, of escobar , born in hospital by vaginal delivery Disease Resolve d 1 0-19 00:00: 00 2023-05-01 00:00:00 2023-05-01 09:15:45 [facility] Noncomplia nt patient in third trimester Noncomplia nt patient in third trimester Disease Resolve d 2021-05 0-10 00:00: 00 2023-05-01 00:00:00 2023-05-01 09:15:39 [facility] Anemia of mother in , antepartum Anemia of mother in , antepartum Disease Resolve d 2021-0 9-16 00:00: 00 2023-05-01 00:00:00 2023-05-01 09:15:53 [facility] Hx of preeclamps ia, prior , currently Hx of preeclamps ia, prior , currently Disease Resolve d 2021-0 7-29 00:00: 00 2023-05-01 00:00:00 2023-05-01 09:15:46 [facility] Nausea and vomiting during prior to 22 weeks gestation Nausea and vomiting during prior to 22 weeks gestation Disease Resolve d 2021-0 3-16 00:00: 00 2023-05-01 00:00:00 2023-05-01 09:15:40 [facility] Supervisio n of high-risk Supervisio n of high-risk Disease Resolve d 3-01 00:00: 00 2023-05-01 00:00:00 2023-05-01 09:15:32 [facility] Multiparit y Multiparit y Disease Resolve d 3-01 00:00: 00 2023-05-01 00:00:00 2023-05-01 09:15:41 [facility] Obesity in Obesity in Disease Resolve d 7-15 00:00: 00 2023-05-01 00:00:00 2023-05-01 09:15:37 [facility] Mild pre-eclamp richie in third trimester Mild pre-eclamp richie in third trimester Disease Resolve d 2016-05 1- 00:00: 00 2023-05-01 00:00:00 2023-05-01 09:15:44 Overview: Formattin g of this note might be different from the original. Without severe features, no meds & no MgSO4 [facility] 36 weeks gestation of 36 weeks gestation of Disease Resolve d 2016-05 1 00:00: 00 2023-05-01 00:00:00 2023-05-01 09:15:54 [facility] 24 weeks gestation of 24 weeks gestation of Disease Resolve d 7-29 00:00: 00 2022-02-08 00:00:00 2022-02-08 15:53:55 [facility] Other general counseling and advice for contracept kevin management Other general counseling and advice for contracept kevin management Disease Resolve d 7-15 00:00: 00 2021-11-19 00:00:00 2021-11-19 21:33:08 [facility] Nausea & vomiting Nausea & vomiting Disease Resolve d 3-16 00:00: 00 2021-08-08 00:00:00 2021-08-08 15:10:31 [facility] Well woman exam Well woman exam Disease Resolve d 1-02 00:00: 00 2021-07-24 00:00:00 2021-07-24 14:06:31 [facility] Anemia of mother in , condition Anemia of mother in , condition Disease Resolve d 2016-05 2 00:00: 00 2019-12-08 00:00:00 2019-12-08 15:07:39 [facility] Care and examinatio n of lactating mother Care and examinatio n of lactating mother Disease Resolve d 2016-05 00:00: 00 2019-12-08 00:00:00 2019-12-08 15:07:55 [facility] Episode of heavy vaginal bleeding Episode of heavy vaginal bleeding Disease Resolve d 2016-05 00:00: 00 2019-12-08 00:00:00 2019-12-08 15:07:53 [facility] Susceptibl e to varicella (non-immun e), currently Susceptibl e to varicella (non-immun e), currently Disease Resolve d 12-25 00:00: 00 2019-12-08 00:00:00 2019-12-08 15:07:26 [facility] (spontaneo us vaginal delivery) (spontaneo us vaginal delivery) Disease Resolve d 2016-05 00:00: 00 2017-05-05 00:00:00 2017-05-05 11:37:41 [facility] Contracept kevin management Contracept kevin management Disease Resolve d 9-20 00:00: 00 2017-05-05 00:00:00 2017-05-05 11:37:37 [facility] Anemia affecting Anemia affecting Disease Resolve d 9-07 00:00: 00 2017-05-05 00:00:00 2017-05-05 11:37:35 [facility] Late presentati on for care Late presentati on for care Disease Resolve d 6-05 00:00: 00 2017-05-05 00:00:00 2017-05-05 11:37:34 [facility] Flu vaccine need Flu vaccine need Disease Resolve d 2016-05 1-03 00:00: 00 2017-04-20 00:00:00 2017-04-20 09:50:45 [facility] Supervisio n of high risk , antepartum Supervisio n of high risk , antepartum Disease Resolve d 0 6-05 00:00: 00 2017-04-20 00:00:00 2017-04-20 10:42:34 [facility] Allergies, Adverse Reactions, Alerts Allergy Name Allergy Type Status Severity Reaction(s) Onset Date Inactive Date Treating Clinician Comments Source NO KNOWN ALLERGIE S Drug Class Active [facility] Social History Social Habit Start Date Stop Date Quantity Comments Source ASSERTION 2021-07-15 00:00:00 [facility] History of tobacco use Cigarette Smoker [facility] Alcoholic beverage intake 2024-04-16 00:00:00 2024-04-16 00:00:00 .14 /d [facility] History of Social function 2024-04-14 00:00:00 2024-04-14 00:00:00 [facility] Tobacco Comment 2024-03-09 00:00:00 2024-03-09 00:00:00 Vapes occasionally [facility] Tobacco use and exposure 2024-03-09 00:00:00 2024-03-09 00:00:00 Smokeless tobacco non-user [facility] Alcohol intake 2023-06-17 00:00:00 2023-06-17 00:00:00 Current non-drinker of alcohol (finding) [facility] Exposure to SARS-CoV-2 (event) 2022-11-16 00:00:00 2022-11-26 11:27:00 Not sure [facility] Sex assigned at 1995 00:00:00 1995 00:00:00 [facility] Smoking Status Start Date Stop Date Source Occasional tobacco smoker 2024-03-09 00:00:00 [facility] Ex-smoker 2022-02-08 00:00:00 2022-02-08 00:00:00 [facility] Light tobacco smoker 2019-12-08 00:00:00 [facility] Medications Ordered Medication Name Filled Medication Name Start Date Stop Date Current Medication? Ordering Clinician Indication Dosage Frequency Signature (SIG) Comments Components Source doxycycline hyclate 100 mg capsule 2023-05 00:00: 00 04-24 05:59 :00 No [id number] 100mg Take 1 capsule by mouth every 12 (twelve) hours for 7 days. [facility] metroNIDAZO LE 500 mg tablet 2023-05 0-16 00:00: 00 Yes [id number] 500mg Take 1 tablet by mouth every 12 (twelve) hours. [facility] penicillin g benzathine (BICILLIN L-A) injection 2.4 Million Units 2022-05 15:13: 46 05-22 20:35 :00 No [id number] 2.410 2.4 Million Units, Intramuscu lar, QWEEKLY, 3 doses, First dose on Fri05/05/23 at 0915, Last dose on Fri05/19/23 at 0915, ERASTO
Re ason for Anti-Infec tive: Documented Infection< br>Documen eula Infection Site: Other
O ther site:
Dura tion of Therapy: Other (see Comments) [facility] fluconazole (DIFLUCAN) 150 mg tablet 2022-05 00:00: 00 06-17 00:00 :00 No [id number] 150mg Take 1 tablet by mouth in the morning. Day 1 take 2 tablets 300mg, and take 1 tablet 150mg daily for 2 weeks [facility] medroxyPROG ESTERone (DEPO-PROVE RA) syringe 150 mg 11-27 20:00: 00 11-27 19:02 :00 No [id number] 150mg [facility] medroxyPROG ESTERone (DEPO-PROVE RA) injection 150 mg 09-03 20:30: 00 09-03 19:36 :00 No [id number] 150mg [facility] vit no.124/iron /folic ( VITAMIN ORAL) 2021-05 0- 14:40: 04 03-14 00:00 :00 No 1{capsu le} Take 1 capsule by mouth daily. [facility] medroxyPROG ESTERone (DEPO-PROVE RA) injection 150 mg 2021-05 13:45: 00 03-15 13:32 :00 No 150mg 150 mg, Intramuscu lar, ONCE, 1 dose, On Fri03/15/22 at 0845, Routine [facility] NIFEdipine ER tablet 30 mg 2021-05 12:45: 00 Yes 30mg 30 mg, Oral, Q24H ABX, First dose on Minal 03/14/22 at 0745, Until Discontinu ed, Routine [facility] rho(D) immune globulin (RHOGAM) syringe 300 mcg 2021-05 00:14: 10 Yes 300ug 300 mcg, Intramuscu lar, ONCE, For 1 dose, Conditiona l, Routine [facility] witch Nicholas (TUCKS) 50 % topical pad 2021-05 00:14: 03 Yes Topical, Q4HPRN, Starting on Fri03/13/22 at 1914, Until Discontinu ed, Routine, Pain (scale 1-3), Pain (scale 4-6) [facility] HYDROcodone -acetaminop hen (NORCO 5) 5-325 mg tablet 1 tablet 2021-05 00:14: 02 Yes 1{tbl} 1 tablet, Oral, Q6HPRN, Starting on Fri03/13/22 at 1914, Until Discontinu ed, Routine, Pain (scale 7-10) [facility] ibuprofen (IBU) tablet 600 mg 2021-05 00:14: 02 Yes 600mg 600 mg, Oral, Q6HPRN, Starting on Fri03/13/22 at 1914, Until Discontinu ed, Routine, Pain (scale 4-6) [facility] acetaminoph en (TYLENOL) tablet 650 mg 2021-05 00:14: 02 Yes 650mg 650 mg, Oral, Q6HPRN, Starting on Fri03/13/22 at 1914, Until Discontinu ed, Routine, Pain (scale 1-3) [facility] diphenhydrA MINE (BENADRYL) tablet 25 mg 2021-05 00:14: 02 Yes 25mg 25 mg, Oral, Q6HPRN, Starting on Fri03/13/22 at 1914, Until Discontinu ed, Routine, Sleep, Itching [facility] ondansetron (ZOFRAN (PF)) injection 4 mg 2021-05 00:14: 02 Yes 4mg 4 mg, Slow IV Push, Q8HPRN, Starting on Fri03/13/22 at 1914, Until Discontinu ed, Routine, Nausea and Vomiting (N/V) [facility] simethicone (GAS RELIEF (SIMETHICON E)) chewable tablet 160 mg 2021-05 00:14: 02 Yes 160mg 160 mg, Oral, PC+HSPRN, Starting on Fri03/13/22 at 1914, Until Discontinu ed, Routine, Gas [facility] docusate (COLACE) capsule 200 mg 2021-05 00:14: 02 Yes 200mg 200 mg, Oral, QDAILYPRN, Starting on Fri03/13/22 at 1914, Until Discontinu ed, Routine, Constipati on [facility] magnesium hydroxide (MILK OF MAGNESIA) 400 mg/5 mL suspension 30 mL 2021-05 00:14: 02 Yes 30mL 30 mL, Oral, QDAILYPRN, Starting on Fri03/13/22 at 1914, Until Discontinu ed, Routine, Constipati on [facility] benzocaine- menthol (DERMOPLAST ) 20-0.5 % topical spray 2021-05 00:14: 02 Yes Topical, PRN, Starting on Fri03/13/22 at 1914, Until Discontinu ed, Routine, Perineum discomfort [facility] vitamin w/FA tablet 2021-05 00:00: 00 Yes [id number] 1{tbl} Take 1 tablet by mouth in the morning. [facility] NIFEdipine ER 30 mg tablet 2021-05 00:00: 00 06-17 00:00 :00 No [id number] 30mg Take 1 tablet by mouth every 24 (twenty-fo ur) hours. [facility] vitamin w/FA tablet 2021-05 00:00: 00 06-17 00:00 :00 No [id number] 1{tbl} Take 1 tablet by mouth in the morning. [facility] docusate 100 mg capsule 2021-05 00:00: 00 06-17 00:00 :00 No [id number] 200mg Take 2 capsules by mouth once daily as needed for Constipati on. [facility] ferrous sulfate 325 mg (65 mg iron) tablet 2021-05 00:00: 00 06-17 00:00 :00 No [id number] 325mg Take 1 tablet by mouth in the morning and 1 tablet in the evening. [facility] ibuprofen 600 mg tablet 2021-05 00:00: 00 06-17 00:00 :00 No [id number] 600mg Take 1 tablet by mouth every 6 (six) hours as needed (Pain). Take with food or milk. [facility] famotidine (PEPCID AC) tablet 20 mg 2021-05 21:45: 00 03-14 00:14 :08 No 20mg 20 mg, Oral, Q12H ABX, First dose on Fri03/13/22 at 1645, Until Discontinu ed, Routine [facility] PIB fentaNYL-ro pivacaine 2 mcg/mL-0.1 % (PF) in NS 200 mL epidural infusion RTU 2021-05 21:30: 00 03-14 01:09 :24 No Epidural, ONCE INTRA PROCEDURE, Starting on Fri03/13/22 at 1630, Until Fri03/13/22 at 2008, Routine, Intra-op [facility] lidocaine-e pinephrine (XYLOCAINE W/EPINEPHRI NE) 1.5 %-1:200,000 injection 2021-05 21:29: 00 03-14 01:09 :24 No Epidural, ONCE INTRA PROCEDURE, Starting on Fri03/13/22 at 1629, Until Fri03/13/22 at 2008, Routine, Intra-op [facility] lidocaine 1% (XYLOCAINE) 100 mg/10 mL (1 %) injection 2021-05 21:26: 00 03-14 01:09 :24 No Infiltrati on, ONCE INTRA PROCEDURE, Starting on Fri03/13/22 at 1626, Until Fri03/13/22 at 2009, Routine, Intra-op [facility] oxytocin (PITOCIN) 30 units in NS 500 mL IV infusion 2021-05 20:21: 48 03-14 00:14 :08 No 2mU/min at 2-40 mL/hr, IV Infusion, TITRATE, Starting on Fri03/13/22 at 1521, Until Fri03/13/22 at 1914, ERASTO [facility] lactated ringers IV infusion 500 mL 2021-05 20:15: 00 03-13 20:48 :00 No 500mL at 999 mL/hr, 500 mL, IV Infusion, ONCE, 1 dose, On Fri03/13/22 at 1515, Routine [facility] levETIRAcet am (KEPPRA) tablet 750 mg 2021-05 20:00: 00 03-14 00:14 :08 No 750mg 750 mg, Oral, Q12H ABX, First dose on Fri03/13/22 at 1500, Until Discontinu ed, Routine [facility] vit no.124/iron /folic ( VITAMIN ORAL) 2021-05 18:35: 33 Yes 1{capsu le} Take 1 capsule by mouth daily. [facility] D5W-LR IV infusion 1,000 mL 2021-05 14:44: 00 03-14 00:14 :08 No 1000mL at 125 mL/hr, IV Infusion, CONTINUOUS , Starting on Fri03/13/22 at 0945, Until Fri03/13/22 at 1914, Routine [facility] NaCl 0.9% (NS) bolus infusion 500 mL 2021-05 12:38: 00 03-13 12:58 :00 No 500mL at 999 mL/hr, 500 mL, IV Infusion, ONCE, 1 dose, On Fri03/13/22 at 0745, ERASTO [facility] sulfamethox azole-trime thoprim (BACTRIM DS) 800-160 mg per tablet 02-22 00:00: 00 02-28 04:59 :00 No [id number] 1{tbl} Take 1 tablet by mouth in the morning and 1 tablet in the evening. Do all this for 5 days. [facility] polycarboph il (FIBERCON) 625 mg tablet 02-08 00:00: 00 06-17 00:00 :00 No [id number] 625mg Take 1 tablet by mouth in the morning. [facility] ascorbic acid, vitamin C, 500 mg tablet 02-08 00:00: 00 06-17 00:00 :00 No [id number] 500mg Take 1 tablet by mouth in the morning. [facility] ferrous sulfate (IRON, FERROUS SULFATE,) 325 mg (65 mg iron) tablet 02-08 00:00: 00 03-14 00:00 :00 No [id number] 325mg Take 1 tablet by mouth in the morning and 1 tablet in the evening. [facility] docusate (COLACE) 100 mg capsule 02-08 00:00: 00 03-14 00:00 :00 No [id number] 100mg Take 1 capsule by mouth once daily as needed for Constipati on. [facility] levETIRAcet am 750 mg tablet 12-22 00:00: 00 06-17 00:00 :00 No [id number] 750mg Take 1 tablet by mouth in the morning and 1 tablet in the evening. [facility] levETIRAcet am 500 mg tablet 12-22 00:00: 00 03-14 00:00 :00 No [id number] 500mg Take 1 tablet by mouth in the morning and 1 tablet in the evening. [facility] lamoTRIgine 25 mg tablet 12-22 00:00: 00 03-14 00:00 :00 No [id number] 25mg Take 1 tablet by mouth in the morning. [facility] aspirin 81 mg EC tablet 5-02 00:00: 00 03-14 00:00 :00 No [id number] 81mg Take 1 tablet by mouth daily. [facility] foLIC acid 1 mg tablet 4-09 00:00: 00 03-14 00:00 :00 No [id number] 4mg Take 4 tablets by mouth daily. [facility] metoclopram susie HCl 10 mg tablet 4-05 00:00: 00 03-14 00:00 :00 No [id number] 10mg Take 1 tablet by mouth every 6 (six) hours. [facility] Immunizations Ordered Immunization Name Filled Immunization Name Date Status Comments Source Influenza, split virus, trivalent, PF (AFLURIA/FLUARIX/FLU LAVAL/FLUZONE) 2024-03-09 00:00:00 Completed [facility] Influenza Virus Vaccine Quad .5 mL IM 6+ MO (FLUZONE/FLULAVAL/FL UARIX) 2023-05-01 00:00:00 Completed [facility] TDAP 2022-02-08 00:00:00 Completed [facility] TDAP 2022-02-08 00:00:00 Completed [facility] TDAP 2022-02-08 00:00:00 Completed [facility] TDAP 2022-02-08 00:00:00 Completed [facility] TDAP 2022-02-08 00:00:00 Completed [facility] TDAP 2022-02-08 00:00:00 Completed [facility] TDAP 2022-02-08 00:00:00 Completed [facility] TDAP 2022-02-08 00:00:00 Completed [facility] TDAP 2022-02-08 00:00:00 Completed [facility] TDAP 2022-02-08 00:00:00 Completed [facility] TDAP 2022-02-08 00:00:00 Completed [facility] TDAP 2022-02-08 00:00:00 Completed [facility] TDAP 2022-02-08 00:00:00 Completed [facility] TDAP 2022-02-08 00:00:00 Completed [facility] TDAP 2022-02-08 00:00:00 Completed [facility] Influenza Virus Vaccine Quad IM, Preserv and ABX Free 6 MO-64 YRS 2021-08-08 00:00:00 Completed [facility] Influenza Virus Vaccine Quad IM, Preserv and ABX Free 6 MO-64 YRS 2021-08-08 00:00:00 Completed [facility] Influenza Virus Vaccine Quad IM, Preserv and ABX Free 6 MO-64 YRS 2021-08-08 00:00:00 Completed [facility] Influenza Virus Vaccine Quad IM, Preserv and ABX Free 6 MO-64 YRS 2021-08-08 00:00:00 Completed [facility] Influenza Virus Vaccine Quad IM, Preserv and ABX Free 6 MO-64 YRS 2021-08-08 00:00:00 Completed [facility] Influenza Virus Vaccine Quad IM, Preserv and ABX Free 6 MO-64 YRS 2021-08-08 00:00:00 Completed [facility] Influenza Virus Vaccine Quad IM, Preserv and ABX Free 6 MO-64 YRS 2021-08-08 00:00:00 Completed [facility] Influenza Virus Vaccine Quad IM, Preserv and ABX Free 6 MO-64 YRS 2021-08-08 00:00:00 Completed [facility] Influenza Virus Vaccine Quad IM, Preserv and ABX Free 6 MO-64 YRS 2021-08-08 00:00:00 Completed [facility] Influenza Virus Vaccine Quad IM, Preserv and ABX Free 6 MO-64 YRS 2021-08-08 00:00:00 Completed [facility] Influenza Virus Vaccine Quad IM, Preserv and ABX Free 6 MO-64 YRS 2021-08-08 00:00:00 Completed [facility] Influenza Virus Vaccine Quad IM, Preserv and ABX Free 6 MO-64 YRS 2021-08-08 00:00:00 Completed [facility] Influenza Virus Vaccine Quad IM, Preserv and ABX Free 6 MO-64 YRS 2021-08-08 00:00:00 Completed [facility] Influenza Virus Vaccine Quad IM, Preserv and ABX Free 6 MO-64 YRS 2021-08-08 00:00:00 Completed [facility] Influenza Virus Vaccine Quad IM, Preserv and ABX Free 6 MO-64 YRS 2021-08-08 00:00:00 Completed [facility] Influenza Virus Vaccine Quad IM, Preserv and ABX Free 6 MO-64 YRS (FLUCELVAX) 2021-08-08 00:00:00 Completed [facility] HPV9 2017-10-21 00:00:00 Completed [facility] HPV9 2017-10-21 00:00:00 Completed [facility] HPV9 2017-10-21 00:00:00 Completed [facility] HPV9 2017-10-21 00:00:00 Completed [facility] HPV9 2017-10-21 00:00:00 Completed [facility] HPV9 2017-10-21 00:00:00 Completed [facility] HPV9 2017-10-21 00:00:00 Completed [facility] HPV9 2017-10-21 00:00:00 Completed [facility] HPV9 2017-10-21 00:00:00 Completed [facility] HPV9 2017-10-21 00:00:00 Completed [facility] HPV9 2017-10-21 00:00:00 Completed [facility] HPV9 2017-10-21 00:00:00 Completed [facility] HPV9 2017-10-21 00:00:00 Completed [facility] HPV9 2017-10-21 00:00:00 Completed [facility] HPV9 2017-10-21 00:00:00 Completed [facility] HPV9 2017-10-21 00:00:00 Completed Varicella (varivax)(chicken pox) 2017-05-27 00:00:00 Completed [facility] HPV9 2017-05-27 00:00:00 Completed [facility] Varicella (varivax)(chicken pox) 2017-05-27 00:00:00 Completed [facility] HPV9 2017-05-27 00:00:00 Completed [facility] Varicella (varivax)(chicken pox) 2017-05-27 00:00:00 Completed [facility] HPV9 2017-05-27 00:00:00 Completed [facility] Varicella (varivax)(chicken pox) 2017-05-27 00:00:00 Completed [facility] HPV9 2017-05-27 00:00:00 Completed [facility] Varicella (varivax)(chicken pox) 2017-05-27 00:00:00 Completed [facility] HPV9 2017-05-27 00:00:00 Completed [facility] Varicella (varivax)(chicken pox) 2017-05-27 00:00:00 Completed [facility] HPV9 2017-05-27 00:00:00 Completed [facility] Varicella (varivax)(chicken pox) 2017-05-27 00:00:[address] [facility]9 2017-05-27 00:00:00 Completed [facility] Varicella (varivax)(chicken pox) 2017-05-27 00:00:[address] [facility]9 2017-05-27 00:00:00 Completed [facility] Varicella (varivax)(chicken pox) 2017-05-27 00:00:00 Completed [facility] HPV9 2017-05-27 00:00:00 Completed [facility] Varicella (varivax)(chicken pox) 2017-05-27 00:00:00 Completed [facility] HPV9 2017-05-27 00:00:00 Completed [facility] Varicella (varivax)(chicken pox) 2017-05-27 00:00:00 Completed [facility] HPV9 2017-05-27 00:00:00 Completed [facility] Varicella (varivax)(chicken pox) 2017-05-27 00:00:00 Completed [facility] HPV9 2017-05-27 00:00:00 Completed [facility] Varicella (varivax)(chicken pox) 2017-05-27 00:00:00 Completed [facility] HPV9 2017-05-27 00:00:00 Completed [facility] Varicella (varivax)(chicken pox) 2017-05-27 00:00:00 Completed [facility] HPV9 2017-05-27 00:00:00 Completed [facility] Varicella (varivax)(chicken pox) 2017-05-27 00:00:00 Completed [facility] HPV9 2017-05-27 00:00:00 Completed [facility] Varicella (varivax)(chicken pox) 2017-05-27 00:00:00 Completed HPV9 2017-05-27 00:00:00 Completed Varicella (varivax)(chicken pox) 2017-04-20 00:00:00 Completed [facility] HPV9 2017-04-20 00:00:00 Completed [facility] Varicella (varivax)(chicken pox) 2017-04-20 00:00:00 Completed [facility] HPV9 2017-04-20 00:00:00 Completed [facility] Varicella (varivax)(chicken pox) 2017-04-20 00:00:[address] [facility] 2017-04-20 00:00:00 Completed [facility] Varicella (varivax)(chicken pox) 2017-04-20 00:00:00 Completed [facility] HPV9 2017-04-20 00:00:00 Completed [facility] Varicella (varivax)(chicken pox) 2017-04-20 00:00:[address] [facility] 2017-04-20 00:00:00 Completed [facility] Varicella (varivax)(chicken pox) 2017-04-20 00:00:00 Completed [facility] HPV9 2017-04-20 00:00:00 Completed [facility] Varicella (varivax)(chicken pox) 2017-04-20 00:00:00 Completed [facility] HPV9 2017-04-20 00:00:00 Completed [facility] Varicella (varivax)(chicken pox) 2017-04-20 00:00:00 Completed [facility] HPV9 2017-04-20 00:00:00 Completed [facility] Varicella (varivax)(chicken pox) 2017-04-20 00:00:00 Completed [facility] HPV9 2017-04-20 00:00:00 Completed [facility] Varicella (varivax)(chicken pox) 2017-04-20 00:00:00 Completed [facility] HPV9 2017-04-20 00:00:00 Completed [facility] Varicella (varivax)(chicken pox) 2017-04-20 00:00:00 Completed [facility] HPV9 2017-04-20 00:00:00 Completed [facility] Varicella (varivax)(chicken pox) 2017-04-20 00:00:00 Completed [facility] HPV9 2017-04-20 00:00:00 Completed [facility] Varicella (varivax)(chicken pox) 2017-04-20 00:00:00 Completed [facility] HPV9 2017-04-20 00:00:00 Completed [facility] Varicella (varivax)(chicken pox) 2017-04-20 00:00:[address] [facility] 2017-04-20 00:00:00 Completed [facility] Varicella (varivax)(chicken pox) 2017-04-20 00:00:[address] [facility] 2017-04-20 00:00:00 Completed [facility] Varicella (varivax)(chicken pox) 2017-04-20 00:00:[address] [facility] 2017-04-20 00:00:00 Completed Influenza Virus Vaccine Quad IM 3+ YRS 2017-03-28 00:00:00 Completed [facility] Influenza Virus Vaccine Quad IM 3+ YRS 2017-03-28 00:00:00 Completed [facility] Influenza Virus Vaccine Quad IM 3+ YRS 2017-03-28 00:00:00 Completed [facility] Influenza Virus Vaccine Quad IM 3+ YRS 2017-03-28 00:00:00 Completed [facility] Influenza Virus Vaccine Quad IM 3+ YRS 2017-03-28 00:00:00 Completed [facility] Influenza Virus Vaccine Quad IM 3+ YRS 2017-03-28 00:00:00 Completed [facility] Influenza Virus Vaccine Quad IM 3+ YRS 2017-03-28 00:00:00 Completed [facility] Influenza Virus Vaccine Quad IM 3+ YRS 2017-03-28 00:00:00 Completed [facility] Influenza Virus Vaccine Quad IM 3+ YRS 2017-03-28 00:00:00 Completed [facility] Influenza Virus Vaccine Quad IM 3+ YRS 2017-03-28 00:00:00 Completed [facility] Influenza Virus Vaccine Quad IM 3+ YRS 2017-03-28 00:00:00 Completed [facility] Influenza Virus Vaccine Quad IM 3+ YRS 2017-03-28 00:00:00 Completed [facility] Influenza Virus Vaccine Quad IM 3+ YRS 2017-03-28 00:00:00 Completed [facility] Influenza Virus Vaccine Quad IM 3+ YRS 2017-03-28 00:00:00 Completed [facility] Influenza Virus Vaccine Quad IM 3+ YRS 2017-03-28 00:00:00 Completed [facility] Influenza Virus Vaccine Quad IM 3+ YRS 2017-03-28 00:00:00 Completed TDAP 2017-02-12 00:00:00 Completed [facility] TDAP 2017-02-12 00:00:00 Completed [facility] TDAP 2017-02-12 00:00:00 Completed [facility] TDAP 2017-02-12 00:00:00 Completed [facility] TDAP 2017-02-12 00:00:00 Completed [facility] TDAP 2017-02-12 00:00:00 Completed [facility] TDAP 2017-02-12 00:00:00 Completed [facility] TDAP 2017-02-12 00:00:00 Completed [facility] TDAP 2017-02-12 00:00:00 Completed [facility] TDAP 2017-02-12 00:00:00 Completed [facility] TDAP 2017-02-12 00:00:00 Completed [facility] TDAP 2017-02-12 00:00:00 Completed [facility] TDAP 2017-02-12 00:00:00 Completed [facility] TDAP 2017-02-12 00:00:00 Completed [facility] TDAP 2017-02-12 00:00:00 Completed [facility] TDAP 2017-02-12 00:00:00 Completed [facility] HPV 2013-12-15 00:00:00 Completed Meningococcal Polysaccharide (groups A, C, Y and W-135) conjugate vaccine (MCV4P) 2013-12-15 00:00:00 Completed HEPATITIS A 2012-01-01 00:00:00 Completed HPV 2012-01-01 00:00:00 Completed TDAP 2010-01-15 00:00:00 Completed Varicella (varivax)(chicken pox) 2010-01-15 00:00:00 Completed HEPATITIS A 2010-01-15 00:00:00 Completed Meningococcal Polysaccharide (groups A, C, Y and W-135) conjugate vaccine (MCV4P) 2010-01-15 00:00:00 Completed DTaP, Unspecified Formulation 2001-12-01 00:00:00 Completed MMR 2001-12-01 00:00:00 Completed IPV 2001-12-01 00:00:00 Completed DTP 1999-02-09 00:00:00 Completed Hib-HbOC 1999-02-09 00:00:00 Completed Varicella (varivax)(chicken pox) 1998-09-11 00:00:00 Completed MMR 1998-09-11 00:00:00 Completed DTP 1998-02-09 00:00:00 Completed Hep B, Adol or Pedi Dosage 1998-02-09 00:00:00 Completed Hib-HbOC 1998-02-09 00:00:00 Completed IPV 1998-02-09 00:00:00 Completed IPV 1997 00:00:00 Completed DTP 1997 00:00:00 Completed Hib-HbOC 1997 00:00:00 Completed DTP 1997 00:00:00 Completed Hep B, Adol or Pedi Dosage 1997 00:00:00 Completed Hib-HbOC 1997 00:00:00 Completed IPV 1997 00:00:00 Completed Hep B, Adol or Pedi Dosage 1997 00:00:00 Completed TDAP Unknown Completed [facility] Influenza Virus Vaccine Quad IM 3+ YRS Unknown Completed [facility] Varicella (varivax)(chicken pox) Unknown Completed [facility] HPV9 Unknown Completed [facility] Influenza Virus Vaccine Quad IM, Preserv and ABX Free 6 MO-64 YRS (FLUCELVAX) Unknown Completed [facility] TDAP Unknown Completed [facility] Influenza Virus Vaccine Quad IM 3+ YRS Unknown Completed [facility] Varicella (varivax)(chicken pox) Unknown Completed [facility] HPV9 Unknown Completed [facility] Influenza Virus Vaccine Quad IM, Preserv and ABX Free 6 MO-64 YRS (FLUCELVAX) Unknown Completed [facility] TDAP Unknown Completed [facility] Influenza Virus Vaccine Quad IM 3+ YRS Unknown Completed [facility] Varicella (varivax)(chicken pox) Unknown Completed [facility] HPV9 Unknown Completed [facility] Influenza Virus Vaccine Quad IM, Preserv and ABX Free 6 MO-64 YRS (FLUCELVAX) Unknown Completed [facility] TDAP Unknown Completed [facility] Influenza Virus Vaccine Quad IM 3+ YRS Unknown Completed [facility] Varicella (varivax)(chicken pox) Unknown Completed [facility] HPV9 Unknown Completed [facility] Influenza Virus Vaccine Quad IM, Preserv and ABX Free 6 MO-64 YRS (FLUCELVAX) Unknown Completed [facility] TDAP Unknown Completed [facility] Influenza Virus Vaccine Quad IM 3+ YRS Unknown Completed [facility] Varicella (varivax)(chicken pox) Unknown Completed [facility] HPV9 Unknown Completed [facility] Influenza Virus Vaccine Quad IM, Preserv and ABX Free 6 MO-64 YRS (FLUCELVAX) Unknown Completed [facility] TDAP Unknown Completed [facility] Influenza Virus Vaccine Quad IM 3+ YRS Unknown Completed [facility] Varicella (varivax)(chicken pox) Unknown Completed [facility] HPV9 Unknown Completed [facility] Influenza Virus Vaccine Quad IM, Preserv and ABX Free 6 MO-64 YRS (FLUCELVAX) Unknown Completed [facility] TDAP Unknown Completed [facility] Influenza Virus Vaccine Quad IM 3+ YRS Unknown Completed [facility] Varicella (varivax)(chicken pox) Unknown Completed [facility] HPV9 Unknown Completed [facility] Influenza Virus Vaccine Quad IM, Preserv and ABX Free 6 MO-64 YRS (FLUCELVAX) Unknown Completed [facility] TDAP Unknown Completed [facility] Influenza Virus Vaccine Quad IM 3+ YRS Unknown Completed [facility] Varicella (varivax)(chicken pox) Unknown Completed [facility] HPV9 Unknown Completed [facility] Influenza Virus Vaccine Quad IM, Preserv and ABX Free 6 MO-64 YRS (FLUCELVAX) Unknown Completed [facility] TDAP Unknown Completed [facility] Influenza Virus Vaccine Quad IM 3+ YRS Unknown Completed [facility] Varicella (varivax)(chicken pox) Unknown Completed [facility] HPV9 Unknown Completed [facility] TDAP Unknown Completed [facility] Influenza Virus Vaccine Quad IM 3+ YRS Unknown Completed [facility] Varicella (varivax)(chicken pox) Unknown Completed [facility] HPV9 Unknown Completed [facility] Influenza Virus Vaccine Quad IM, Preserv and ABX Free 6 MO-64 YRS (FLUCELVAX) Unknown Completed [facility] Influenza Virus Vaccine Quad IM, Preserv and ABX Free 6 MO-64 YRS (FLUCELVAX) Unknown Completed [facility] TDAP Unknown Completed [facility] Influenza Virus Vaccine Quad IM 3+ YRS Unknown Completed [facility] Varicella (varivax)(chicken pox) Unknown Completed [facility] HPV9 Unknown Completed [facility] Influenza Virus Vaccine Quad IM, Preserv and ABX Free 6 MO-64 YRS (FLUCELVAX) Unknown Completed [facility] TDAP Unknown Completed [facility] Influenza Virus Vaccine Quad IM 3+ YRS Unknown Completed [facility] Varicella (varivax)(chicken pox) Unknown Completed [facility] HPV9 Unknown Completed [facility] Influenza Virus Vaccine Quad IM, Preserv and ABX Free 6 MO-64 YRS (FLUCELVAX) Unknown Completed [facility] TDAP Unknown Completed [facility] Influenza Virus Vaccine Quad IM 3+ YRS Unknown Completed [facility] Varicella (varivax)(chicken pox) Unknown Completed [facility] HPV9 Unknown Completed [facility] TDAP Unknown Completed [facility] Influenza Virus Vaccine Quad IM 3+ YRS Unknown Completed [facility] Varicella (varivax)(chicken pox) Unknown Completed [facility] HPV9 Unknown Completed [facility] Influenza Virus Vaccine Quad IM, Preserv and ABX Free 6 MO-64 YRS (FLUCELVAX) Unknown Completed [facility] TDAP Unknown Completed [facility] Influenza Virus Vaccine Quad IM 3+ YRS Unknown Completed [facility] Varicella (varivax)(chicken pox) Unknown Completed [facility] HPV9 Unknown Completed [facility] Influenza Virus Vaccine Quad IM, Preserv and ABX Free 6 MO-64 YRS (FLUCELVAX) Unknown Completed [facility] Influenza Virus Vaccine Quad IM, Preserv and ABX Free 6 MO-64 YRS (FLUCELVAX) Unknown Completed [facility] DTaP, Unspecified Formulation Unknown Completed [facility] TDAP Unknown Completed [facility] Influenza Virus Vaccine Quad IM 3+ YRS Unknown Completed [facility] Varicella (varivax)(chicken pox) Unknown Completed [facility] HPV9 Unknown Completed [facility] DTP Unknown Completed [facility] HEPATITIS A Unknown Completed [facility] Hep B, Adol or Pedi Dosage Unknown Completed [facility] Hib-HbOC Unknown Completed [facility] HPV Unknown Completed [facility] Meningococcal Polysaccharide (groups A, C, Y and W-135) conjugate vaccine (MCV4P) Unknown Completed [facility] MMR Unknown Completed [facility] IPV Unknown Completed [facility] TDAP Unknown Completed [facility] Influenza Virus Vaccine Quad IM 3+ YRS Unknown Completed [facility] Varicella (varivax)(chicken pox) Unknown Completed [facility] HPV9 Unknown Completed [facility] Influenza Virus Vaccine Quad IM, Preserv and ABX Free 6 MO-64 YRS (FLUCELVAX) Unknown Completed [facility] DTaP, Unspecified Formulation Unknown Completed [facility] DTP Unknown Completed [facility] HEPATITIS A Unknown Completed [facility] Hep B, Adol or Pedi Dosage Unknown Completed [facility] Hib-HbOC Unknown Completed [facility] HPV Unknown Completed [facility] Meningococcal Polysaccharide (groups A, C, Y and W-135) conjugate vaccine (MCV4P) Unknown Completed [facility] MMR Unknown Completed [facility] IPV Unknown Completed [facility] TDAP Unknown Completed [facility] Influenza Virus Vaccine Quad IM 3+ YRS Unknown Completed [facility] Varicella (varivax)(chicken pox) Unknown Completed [facility] HPV9 Unknown Completed [facility] Influenza Virus Vaccine Quad IM, Preserv and ABX Free 6 MO-64 YRS (FLUCELVAX) Unknown Completed [facility] DTaP, Unspecified Formulation Unknown Completed [facility] DTP Unknown Completed [facility] HEPATITIS A Unknown Completed [facility] Hep B, Adol or Pedi Dosage Unknown Completed [facility] Hib-HbOC Unknown Completed [facility] HPV Unknown Completed [facility] Meningococcal Polysaccharide (groups A, C, Y and W-135) conjugate vaccine (MCV4P) Unknown Completed [facility] MMR Unknown Completed [facility] IPV Unknown Completed [facility] TDAP Unknown Completed [facility] Influenza Virus Vaccine Quad IM 3+ YRS Unknown Completed [facility] Varicella (varivax)(chicken pox) Unknown Completed [facility] HPV9 Unknown Completed [facility] Influenza Virus Vaccine Quad IM, Preserv and ABX Free 6 MO-64 YRS (FLUCELVAX) Unknown Completed [facility] DTaP, Unspecified Formulation Unknown Completed [facility] DTP Unknown Completed [facility] HEPATITIS A Unknown Completed [facility] Hep B, Adol or Pedi Dosage Unknown Completed [facility] Hib-HbOC Unknown Completed [facility] HPV Unknown Completed [facility] Meningococcal Polysaccharide (groups A, C, Y and W-135) conjugate vaccine (MCV4P) Unknown Completed [facility] MMR Unknown Completed [facility] IPV Unknown Completed [facility] TDAP Unknown Completed [facility] Influenza Virus Vaccine Quad IM 3+ YRS Unknown Completed [facility] Varicella (varivax)(chicken pox) Unknown Completed [facility] HPV9 Unknown Completed [facility] Influenza Virus Vaccine Quad IM, Preserv and ABX Free 6 MO-64 YRS (FLUCELVAX) Unknown Completed [facility] DTaP, Unspecified Formulation Unknown Completed [facility] DTP Unknown Completed [facility] HEPATITIS A Unknown Completed [facility] Hep B, Adol or Pedi Dosage Unknown Completed [facility] Hib-HbOC Unknown Completed [facility] HPV Unknown Completed [facility] Meningococcal Polysaccharide (groups A, C, Y and W-135) conjugate vaccine (MCV4P) Unknown Completed [facility] MMR Unknown Completed [facility] IPV Unknown Completed [facility] Vital Signs Vital Name Observation Time Observation Value Comments S kezia Systolic blood pressure 2024-04-14 21:58:00 131 mm[Hg] [facility] Diastolic blood pressure 2024-04-14 21:58:00 88 mm[Hg] [facility] Heart rate 2024-04-14 21:58:00 85 /min [facility] Body temperature 2024-04-14 21:58:00 37.28 [facility] Respiratory rate 2024-04-14 21:58:00 17 /min [facility] Body height 2024-04-14 21:58:[address] [facility] Body weight 2024-04-14 21:58:[address] [facility] BMI 2024-04-14 21:58:00 27.62 kg/m2 [facility] Systolic blood pressure 2024-03-09 20:39:00 114 mm[Hg] [facility] Diastolic blood pressure 2024-03-09 20:39:00 69 mm[Hg] [facility] Heart rate 2024-03-09 20:39:00 91 /min [facility] Body temperature 2024-03-09 20:39:00 36.78 [facility] Respiratory rate 2024-03-09 20:39:00 20 /min [facility] Body height 2024-03-09 20:39:[address] [facility] Body weight 2024-03-09 20:39:[address] [facility] BMI 2024-03-09 20:39:00 28.68 kg/m2 [facility] Systolic blood pressure 2023-06-17 15:12:00 130 mm[Hg] [facility] Diastolic blood pressure 2023-06-17 15:12:00 70 mm[Hg] [facility] Heart rate 2023-06-17 15:12:00 94 /min [facility] Body temperature 2023-06-17 15:12:00 36.5 [facility] Respiratory rate 2023-06-17 15:12:00 18 /min [facility] Body height 2023-06-17 15:12:00 154.9 cm [facility] Body weight 2023-06-17 15:12:00 72.831 kg [facility] BMI 2023-06-17 15:12:00 30.34 kg/m2 [facility] Systolic blood pressure 2023-05-22 20:35:00 125 mm[Hg] [facility] Diastolic blood pressure 2023-05-22 20:35:00 76 mm[Hg] [facility] Heart rate 2023-05-22 20:35:00 86 /min [facility] Body temperature 2023-05-22 20:35:00 36.72 [facility] Respiratory rate 2023-05-22 20:35:00 18 /min [facility] Body height 2023-05-22 20:35:00 154.9 cm [facility] Body weight 2023-05-22 20:35:00 69.355 kg [facility] BMI 2023-05-22 20:35:00 28.89 kg/m2 [facility] Systolic blood pressure 2023-05-12 15:37:00 118 mm[Hg] [facility] Diastolic blood pressure 2023-05-12 15:37:00 73 mm[Hg] [facility] Heart rate 2023-05-12 15:37:00 79 /min [facility] Body temperature 2023-05-12 15:37:00 35.78 [facility] Respiratory rate 2023-05-12 15:37:00 18 /min [facility] Body height 2023-05-12 15:37:00 154.9 cm [facility] Body weight 2023-05-12 15:37:00 69.582 kg [facility] BMI 2023-05-12 15:37:00 28.98 kg/m2 [facility] Systolic blood pressure 2023-05-05 15:10:00 125 mm[Hg] [place] [facility] Diastolic blood pressure 2023-05-05 15:10:00 79 mm[Hg] [facility] Heart rate 2023-05-05 15:10:00 93 /min [facility] Body temperature 2023-05-05 15:10:00 36.94 [facility] Respiratory rate 2023-05-05 15:10:00 18 /min [facility] Body height 2023-05-05 15:10:00 154.9 cm [facility] Body weight 2023-05-05 15:10:[address] [facility] BMI 2023-05-05 15:10:00 28.17 kg/m2 [facility] Systolic blood pressure 2023-05-01 14:19:00 127 mm[Hg] [facility] Diastolic blood pressure 2023-05-01 14:19:00 77 mm[Hg] [facility] Heart rate 2023-05-01 14:19:00 83 /min [facility] Body temperature 2023-05-01 14:19:00 35.44 [facility] Respiratory rate 2023-05-01 14:19:00 18 /min [facility] Body weight 2023-05-01 14:19:[address] [facility] BMI 2023-05-01 14:19:00 28.93 kg/m2 [facility] Systolic blood pressure 2022-11-27 18:59:00 121 mm[Hg] [facility] Diastolic blood pressure 2022-11-27 18:59:00 78 mm[Hg] [facility] Heart rate 2022-11-27 18:59:00 76 /min [facility] Body temperature 2022-11-27 18:59:00 36.83 [facility] Respiratory rate 2022-11-27 18:59:00 18 /min [facility] Body height 2022-11-27 18:59:00 154.9 cm [facility] Body weight 2022-11-27 18:59:[address] [facility] BMI 2022-11-27 18:59:00 32.31 kg/m2 [facility] Systolic blood pressure 2022-09-03 19:05:00 127 mm[Hg] [facility] Diastolic blood pressure 2022-09-03 19:05:00 83 mm[Hg] [facility] Heart rate 2022-09-03 19:05:00 95 /min [facility] Body temperature 2022-09-03 19:05:00 36.72 [facility] Respiratory rate 2022-09-03 19:05:00 16 /min [facility] Body height 2022-09-03 19:05:[address] [facility] Body weight 2022-09-03 19:05:[address] [facility] BMI 2022-09-03 19:05:00 29.40 kg/m2 [facility] Oxygen saturation in Arterial blood by Pulse oximetry 2022-09-03 19:05:00 99 /min [facility] Systolic blood pressure 2022-03-15 12:35:00 119 mm[Hg] [facility] Diastolic blood pressure 2022-03-15 12:35:00 69 mm[Hg] [facility] Heart rate 2022-03-15 12:35:00 72 /min [facility] Body temperature 2022-03-15 12:35:00 36.78 [facility] Oxygen saturation in Arterial blood by Pulse oximetry 2022-03-15 12:35:00 99 /min [facility] Respiratory rate 2022-03-15 05:10:00 18 /min [facility] Body height 2022-03-13 12:00:00 154.9 cm [facility] 2022-03-13 12:00:[address] [facility] BMI 2022-03-13 12:00:00 30.04 kg/m2 [facility] Systolic blood pressure 2022-03-12 15:05:00 138 mm[Hg] [facility] Diastolic blood pressure 2022-03-12 15:05:00 88 mm[Hg] [facility] Heart rate 2022-03-12 15:04:00 87 /min [facility] Body temperature 2022-03-12 15:04:00 37 [facility] Respiratory rate 2022-03-12 15:04:00 18 /min [facility] Body height 2022-03-12 15:04:00 154.9 cm [facility] Body weight 2022-03-12 15:04:[address] [facility] BMI 2022-03-12 15:04:00 30.69 kg/m2 [facility] Heart rate 2022-03-08 21:15:00 80 /min [facility] Oxygen saturation in Arterial blood by Pulse oximetry 2022-03-08 21:15:00 100 /min [facility] Systolic blood pressure 2022-03-08 16:11:00 128 mm[Hg] [facility] Diastolic blood pressure 2022-03-08 16:11:00 85 mm[Hg] [facility] Body temperature 2022-03-08 16:11:00 36.72 [facility] Respiratory rate 2022-03-08 16:11:00 18 /min [facility] Body height 2022-03-08 13:29:[address] [facility] Body weight 2022-03-08 13:29:[address] [facility] BMI 2022-03-08 13:29:00 30.04 kg/m2 [facility] Systolic blood pressure 2022-03-04 21:59:00 128 mm[Hg] [facility] Diastolic blood pressure 2022-03-04 21:59:00 82 mm[Hg] [facility] Heart rate 2022-03-04 21:59:00 107 /min [facility] Body temperature 2022-03-04 21:59:00 36.83 [facility] Respiratory rate 2022-03-04 21:59:00 18 /min [facility] Body height 2022-03-04 21:59:[address] [facility] Body weight 2022-03-04 21:59:[address] [facility] BMI 2022-03-04 21:59:00 30.42 kg/m2 [facility] Systolic blood pressure 2022-02-22 14:20:00 129 mm[Hg] [facility] Diastolic blood pressure 2022-02-22 14:20:00 81 mm[Hg] [facility] Heart rate 2022-02-22 14:20:00 96 /min [facility] Body temperature 2022-02-22 14:20:00 37 [facility] Respiratory rate 2022-02-22 14:20:00 16 /min [facility] Body height 2022-02-22 14:20:[address] [facility] Body weight 2022-02-22 14:20:[address] [facility] BMI 2022-02-22 14:20:00 29.89 kg/m2 [facility] Oxygen saturation in Arterial blood by Pulse oximetry 2022-02-22 14:20:00 96 /min [facility] Systolic blood pressure 2022-02-08 20:28:00 122 mm[Hg] [facility] Diastolic blood pressure 2022-02-08 20:28:00 76 mm[Hg] [facility] Heart rate 2022-02-08 20:28:00 111 /min [facility] Body temperature 2022-02-08 20:28:00 36.78 [facility] Respiratory rate 2022-02-08 20:28:00 18 /min [facility] Body height 2022-02-08 20:28:[address] [facility] Body weight 2022-02-08 20:28:[address] [facility] BMI 2022-02-08 20:28:00 30.04 kg/m2 [facility] Procedures Procedure Date / Time Performed Performing Clinician Source SYPHILIS IGG/IGM 2024-04-14 22:38:00 [facility] HCG [facility] 2024-04-14 22:37:00 Teofilo Rosenberg [facility] GC & CHLAMYDIA AMPLIFIED ASSAY 2024-04-14 22:37:00 [facility]-AB WITH REFLEX 2024-04-14 22:37:00 [facility] 2024-04-14 00:00:00 [facility] GC & CHLAMYDIA AMPLIFIED ASSAY 2024-03-09 21:31:[address] [facility] GALV ONLY - VAGINAL PATHOGENS BY NUCLEIC ACID TESTING 2024-03-09 21:31:00 [facility] FLU VACC (), 6+ MONTHS, IM, TIV (AFLURIA/FLUARIX/FLULAVA L/FLUZONE) 2024-03-09 20:56:49 [facility] PO[facility] TEST 2023-06-17 15:13:00 Sivan Means [facility] SYPHILIS IGG/IGM 2023-05-01 15:30:00 Jevon Og [facility] RPR (QUANTITATIVE) 2023-05-01 15:30:00 Raman Og [facility] HIV 1/2 AG-AB WITH REFLEX 2023-05-01 15:30:00 Michelle Og [facility] "RWSP PERLITA ONLY" FLU VACC(), 6+ MONTHS, IM, QUAD (FLUZONE/FLULAVAL/FLUARI X) 2023-05-01 15:25:31 Michelle Og [facility] CONSENT/REFUSAL FOR DIAGNOSIS AND TREATMENT 2023-05-01 13:55:19 Doctor Unassigned, Talmage [facility] PAP SMEAR-LIQUID BASED-CP 2022-09-03 19:43:00 Jaqueline Singh [facility] PATIENT FINANCIAL POLICY 2022-09-03 18:45:58 Doctor Unassigned, [place] [facility] POCT TEST 2022-09-03 00:00:00 Marilynn Singh [facility] CBC WITH DIFF 2022-03-14 08:46:00 Kota Napier [facility] CENTRAL NEURAXIAL BLOCK 2022-03-13 21:43:27 Jeanne Villalobos [facility] US PELVIS > 14 WEEKS 2022-03-13 19:00:00 Kota Napier [facility] URINE DRUG (IMMUNOASSAY) - COMPREHENSIVE DRUG SCREEN 2022-03-13 15:05:00 Adum, Isabelle Ruiz [facility] URINE CULTURE 2022-03-13 14:42:00 Adum, Isabelle Ruiz [facility] PROTEIN CREAT RATIO URINE RANDOM 2022-03-13 14:42:00 Adum, Isabelle Ruiz [facility] LACTATE DEHYDROGENASE 2022-03-13 13:27:00 Adum, Isabelle Ruiz [facility] CBC WITH DIFF 2022-03-13 13:27:00 Adum, Isabelle Ruiz [facility] URIC ACID 2022-03-13 12:23:00 Adum, Isabelle Ruiz [facility] COMP. METABOLIC PANEL ([id number]) 2022-03-13 12:23:00 Adum, Isabelle Ruiz [facility] HEPATITIS B SURFACE ANTIGEN 2022-03-13 12:23:00 Adum, Isabelle Ruiz [facility] ADC OR MARY ONLY - RPR 2022-03-13 12:23:00 Adum, Isabelle Ruiz [facility] HIV 1/2 AG-AB WITH REFLEX 2022-03-13 12:23:00 Adum, Isabelle uRiz [facility] HB ABO GROUPING 2022-03-13 12:22:00 Adum, Isabelle Ruiz [facility] RHO (D) IMMUNE GLOBULIN 2022-03-13 12:22:00 Kota Napier [facility] NON-STRESS TEST 2022-03-12 15:38:59 Alyssa Hernandez [facility] US PELVIS > 14 WEEKS 2022-03-08 19:52:00 Kota Napier [facility] US BIOPHYSICAL PROFILE 2022-03-08 19:26:00 Kota Napier [facility] URINALYSIS 2022-03-08 16:05:00 Quyen Kota Fontenot [facility] CONSENT/REFUSAL FOR DIAGNOSIS AND TREATMENT 2022-03-08 13:26:43 Doctor Unassigned, [place] [facility] POCT URINALYSIS W/O SPECIFIC GRAVITY 2022-03-04 00:00:00 Jaqueline Singh [facility] GALV ONLY - VAGINAL PATHOGENS BY NUCLEIC ACID TESTING 2022-02-08 21:34:00 Quyen Kota Michael [facility] TDAP VACCINE, >11 YRS, IM 2022-02-08 20:38:16 Kota Napier [facility] STERILIZATION CONSENT FORM 2022-02-08 05:01:00 Doctor Unassigned, [place] [facility] POCT URINALYSIS W/O SPECIFIC GRAVITY 2022-02-08 00:00:00 Kota Napier [facility] GLUCOSE 1 HOUR POST PRANDIAL 2022-01-07 20:27:00 Janes Hernandez [facility] CBC WITH DIFF 2022-01-07 20:27:[address] [facility] ADC OR MARY ONLY - RPR 2022-01-07 20:27:00 Janes Hernandez [facility] HIV 1/2 AG-AB WITH REFLEX 2022-01-07 20:27:[address] [facility] HB ABO GROUPING 2022-01-07 20:24:00 Janes Hernandez [facility] Encounters Start Date/Time End Date/Time Encounter Type Admission Type Attending Clinicians Care Facility Care Department Encounter ID Source 2021-08-08 16:29:07 Outpatient P [facility] [id number] [facility] 2025-03-09 14:45:00 2025-03-09 14:45:00 Outpatient R IVETT ROSENBERG [facility] [id number] [facility] 2024-06-06 00:00:00 2024-07-10 18:20:51 Patient Secure MsIvett Deleon [facility] DIRECTOR OF UNDERGRADUATE ADMISSIONS [facility] 1.2.840.114 350.1.13.10 4.2.7.2.686 [id number] [facility] 2024-06-18 15:15:00 2024-06-18 15:15:00 Outpatient R IVETT ROSENBERG [facility] [id number] [facility] 2024-06-16 14:45:00 2024-06-16 14:45:00 Outpatient R IVETT ROSENBERG [facility] [id number] [facility] 2024-04-19 00:00:00 2024-04-19 15:35:48 Patient Secure Msg Doctor Unassigned, Talmage Doctor Unassigned, Talmage [facility] DIRECTOR OF UNDERGRADUATE ADMISSIONS [facility] 1.2.840.114 350.1.13.10 4.2.7.2.686 [id number] 107 [id number] [facility] 2024-04-16 00:00:00 2024-04-19 09:33:32 Telephone ChetIvett [facility] DIRECTOR OF UNDERGRADUATE ADMISSIONS [facility] CHILD [facility] 1.2.840.114 350.1.13.10 4.2.7.2.686 [id number] [facility] 2024-04-15 00:00:00 2024-04-15 14:36:32 Patient Secure Msg Chet [facility] DIRECTOR OF UNDERGRADUATE ADMISSIONS [facility] 1.2.840.114 350.1.13.10 4.2.7.2.686 [id number] 107 [id number] [facility] 2024-04-15 00:00:00 2024-04-15 14:14:43 Patient [facility]ADUATE AD[facility]IONS [facility] 1.2.840.114 350.1.13.10 4.2.7.2.686 [id number] [facility] 2024-04-14 15:15:00 2024-04-14 16:30:27 Outpatient R IVETT ROSENBERG [facility] [id number] [facility] 2024-04-14 15:15:00 2024-04-14 16:30:27 Office Visit ChetIvett [facility] DIRECTOR OF UNDERGRADUATE ADMISSIONS [facility] 1..840.114 350.1.13.10 4.2.7.2.686 [id number] 107 [id number] [facility] 2024-03-31 12:45:00 2024-03-31 12:45:00 Outpatient R [facility] [id number] [facility] 2024-03-12 07:45:00 2024-03-12 07:45:00 Outpatient R CHETIVETT [facility] [id number] [facility] 2024-03-10 00:00:00 2024-03-10 15:55:31 Case Management Chet Ivett [facility] DIRECTOR OF UNDERGRADUATE ADMISSIONS [facility] CHILD [facility] 1..840.114 350.1.13.10 4.2.7.2.686 [id number] 107 [id number] [facility] 2024-03-09 15:30:00 2024-03-09 16:28:18 Outpatient R CHETIVETT [facility] [id number] [facility] 2024-03-09 15:30:00 2024-03-09 16:28:18 Office Visit Chet Ivett [facility] DIRECTOR OF UNDERGRADUATE ADMISSIONS [facility] 1..840.114 350.1.13.10 4.2.7.2.686 [id number] 107 [id number] [facility] 2023-09-17 00:00:00 2023-10-18 18:04:57 Patient Secure Michelle Reynoso [facility] DIRECTOR OF UNDERGRADUATE ADMISSIONS [facility]ILD [facility] 1..840.114 350.1.13.10 4.2.7.2.686 [id number] 107 [id number] [facility] 2023-09-30 13:30:00 2023-09-30 13:30:00 Outpatient R MICHELLE OG [facility] [id number] [facility] 2023-09-18 00:00:00 2023-09-18 00:00:00 Telephone Jud Means [facility] DIRECTOR OF UNDERGRADUATE ADMISSIONS [facility]ILD [facility] ..114 350.1.13.10 4.2.7.2.686 [id number] 107 [id number] [facility] 2023-09-16 10:30:00 2023-09-16 10:30:00 Outpatient R JUD MEANS [facility] [id number] [facility] 2023-09-16 08:30:00 2023-09-16 08:54:20 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 Visit Lab, [facility] Michelle Og [facility] DIRECTOR OF UNDERGRADUATE ADMISSIONS [facility] CHILD [facility] ..114 350.1.13.10 4.2.7.2.686 [id number] 107 [id number] [facility] 2023-09-16 08:30:00 2023-09-16 08:30:00 Outpatient R MICHELLE OG [facility] [id number] [facility] 2023-06-17 09:30:00 2023-06-17 09:43:33 Outpatient R JUD MEANS [facility] [id number] [facility] 2023-06-17 09:30:00 2023-06-17 09:43:33 Office Visit Jud Means [facility] DIRECTOR OF UNDERGRADUATE ADMISSIONS [facility] CHILD [facility] ..114 350.1.13.10 4.2.7.2.686 [id number] 107 [id number] [facility] 2023-06-12 00:00:00 2023-06-12 00:00:00 Patient Secure Msg Michelle Og [facility] DIRECTOR OF UNDERGRADUATE ADMISSIONS [facility] CHILD [facility] ..114 350.1.13.10 4.2.7.2.686 [id number] 107 [id number] [facility] 2023-06-06 09:00:00 2023-06-06 09:00:00 Outpatient R JUD MEANS [facility] [id number] [facility] 2023-05-22 14:30:00 2023-05-22 14:33:58 Outpatient R MICHELLE OG [facility] [id number] [facility] 2023-05-22 14:30:00 2023-05-22 14:33:58 Nurse Visit Visit, Michelle Natarajan [facility] .840.114 350.1.13.10 4.2.7.2.686 [id number] 107 [id number] [facility] 2023-05-21 09:45:00 2023-05-21 09:45:00 Outpatient R [facility] [id number] [facility] 2023-05-12 10:00:00 2023-05-12 10:00:00 Nurse Visit Visit, Michelle Natarajan [facility] .840.114 350.1.13.10 4.2.7.2.686 [id number] 107 [id number] [facility] 2023-05-12 10:00:00 2023-05-12 09:44:04 Outpatient R MICHELLE OG [facility] [id number] [facility] 2023-05-05 09:00:00 2023-05-05 09:37:42 Nurse Visit Visit, Michelle Natarajan [facility] ..840.114 350.1.13.10 4.2.7.2.686 [id number] 107 [id number] [facility] 2023-05-05 09:00:00 2023-05-05 09:00:00 Outpatient R MICHELLE OG [facility] [id number] [facility] 2023-05-02 00:00:00 2023-05-02 00:00:00 Telephone Michelle Og [facility] DIRECTOR OF UNDERGRADUATE ADMISSIONS [facility] CHILD [facility] 1..840.114 350.1.13.10 4.2.7.2.686 [id number] 107 [id number] [facility] 2023-05-01 08:15:00 2023-05-01 09:30:19 Outpatient R MICHELLE GO [facility] [id number] [facility] 2023-05-01 08:15:00 2023-05-01 09:30:19 Office Visit Michelle Og [facility] DIRECTOR OF UNDERGRADUATE ADMISSIONS [facility] CHILD [facility] 1..840.114 350.1.13.10 4.2.7.2.686 [id number] [facility] 2023-05-01 00:00:00 2023-05-01 00:00:00 Orders Only Doctor Unassigned, Talmage [facility] 1..840.114 350.1.13.10 4.2.7.2.686 [id number] [facility] 2023-03-13 13:30:00 2023-03-13 13:30:00 Outpatient R MICHELLE OG [facility] [id number] [facility] 2023-03-12 14:15:00 2023-03-12 14:15:00 Outpatient R JUD MEANS [facility] [id number] [facility] 2023-02-19 14:30:00 2023-02-19 14:30:00 Outpatient R [facility] [id number] [facility] 2023-02-12 15:30:00 2023-02-12 15:30:00 Outpatient R MICHELLE OG [facility] [id number] [facility] 2023-01-08 14:30:00 2023-01-08 14:30:00 Outpatient R JAQUELINE SINGH CHERYAL [facility] [id number] [facility] 2022-12-23 09:00:00 2022-12-23 09:00:00 Outpatient R JAQUELINE SINGH CHERYAL [facility] [id number] [facility] 2022-11-27 14:00:00 2022-11-27 14:00:00 Nurse Visit Nurse, [facility] Isidoro corona [facility] 1.840.114 350.1.13.10 4.2.7.2.686 [id number] [facility] 2022-11-27 14:00:00 2022-11-27 13:58:13 Outpatient R ISIDORO CORONA [facility] [id number] [facility] 2022-09-03 14:00:00 2022-09-03 14:42:08 Outpatient R JAQUELINE SINGH CHERYAL [facility] [id number] [facility] 2022-09-03 14:00:00 2022-09-03 14:42:08 Office Visit Jaqueline Singh [facility] 1.840.114 350.1.13.10 4.2.7.2.686 [id number] [facility] 2022-09-03 00:00:00 2022-09-03 00:00:00 Orders Only Doctor Unassigned, Talmage [facility] 1..840.114 350.1.13.10 4.2.7.2.686 [id number] [facility] 2022-07-18 13:30:00 2022-07-18 13:30:00 Outpatient R JAQUELINE SINGHERJAQUELINE [facility] [id number] [facility] 2022-07-08 13:00:00 2022-07-08 13:00:00 Outpatient R KELLYJAQUELINE CULVER AMYJAQUELINE REES [facility] [id number] [facility] 2022-06-04 13:45:00 2022-06-04 13:45:00 Outpatient R SAMANTHAJAQUELINE SIVA SINGHNEAL [facility] [id number] [facility] 2022-04-10 09:30:00 2022-04-10 09:30:00 Outpatient R KOTA NAPIER [facility] [id number] [facility] 2022-04-08 09:30:00 2022-04-08 09:30:00 Outpatient R KOTA NAPIER [facility] [id number] [facility] 2022-03-13 06:59:00 2022-03-15 14:40:00 Inpatient X KOTA NAPIER [facility] [id number] [facility] 2022-03-13 06:59:00 2022-03-15 14:40:00 Hospital Encounter Marco Antonio Billingsley Vien Cam [facility] 1.2.840.114 350.1.13.10 4.2.7.2.686 [id number] [facility] 2022-03-15 09:30:00 2022-03-15 09:30:00 Outpatient P [facility] [id number] [facility] 2022-03-14 20:00:01 2022-03-14 20:00:01 Anesthesia Event Watson Daly [facility] 1.2.840.114 350.1.13.10 4.2.7.2.686 [id number] [facility] 2022-03-14 14:00:00 2022-03-14 14:00:00 Outpatient R [facility] [id number] [facility] 2022-03-13 16:20:00 2022-03-13 20:07:00 Anesthesia Event Eliu Villalobos David K [facility] 1.20.114 350.1.13.10 4.2.7.2.686 [id number] [facility] 2022-03-12 10:00:00 2022-03-12 10:42:09 Outpatient R [facility] [id number] [facility] 2022-03-12 10:00:00 2022-03-12 10:42:09 [facility] 1.84.114 350.1.13.10 4.2.7.2.686 [id number] [facility] 2022-03-11 00:00:00 2022-03-11 00:00:00 Patient Secure Msg Doctor Unassigned, Talmage [facility] 1.284.114 350.1.13.10 4.2.7.2.686 [id number] [facility] 2022-03-10 00:00:00 2022-03-10 00:00:00 Case Management Kota Napier [facility] BUILD[facility] 1.284.114 350.1.13.10 4.2.7.2.686 [id number] [facility] 2022-03-08 08:38:00 2022-03-08 16:15:00 Outpatient X QUYENKOTA [facility] [id number] [facility] 2022-03-08 08:38:00 2022-03-08 16:15:00 Emergency Kota Napier [facility] 1.20.114 350.1.13.10 4.2.7.2.686 [id number] [facility] 2022-03-06 14:30:00 2022-03-06 14:30:00 Outpatient R JAQUELINE SINGH CHERYAL [facility] [id number] [facility] 2022-03-05 00:00:00 2022-03-05 00:00:00 Telephone Walt Khoury [facility] 1.2.840.114 350.1.13.10 4.2.7.2.686 [id number] [facility] 2022-03-05 00:00:00 2022-03-05 00:00:00 Patient Secure Msg Doctor Unassigned, Talmage [facility] 1.2.840.114 350.1.13.10 4.2.7.2.686 [id number] [facility] 2022-03-04 16:30:00 2022-03-04 17:21:51 Outpatient R KELLYJAQUELINE CULVER CHERYAL [facility] [id number] [facility] 2022-03-04 16:30:00 2022-03-04 17:21:51 Routine Visit Samantha Jaqueline [facility] 1.2.840.114 350.1.13.10 4.2.7.2.686 [id number] [facility] 2022-02-25 14:00:00 2022-02-25 14:00:00 Outpatient R SAMANTHAJAQUELINE SIVA [facility] [id number] [facility] 2022-02-22 08:45:00 2022-02-22 12:56:44 Outpatient R OKTA NAPIER [facility] [id number] [facility] 2022-02-22 08:45:00 2022-02-22 09:00:00 Routine Visit Kota Napier [facility] 1.2.840.114 350.1.13.10 4.2.7.2.686 [id number] [facility] 2022-02-18 00:00:00 2022-02-18 00:00:00 Patient Secure Msg Jaqueline Singh [facility] 1.2.840.114 350.1.13.10 4.2.7.2.686 [id number] [facility] 2022-02-08 15:00:00 2022-02-08 16:01:16 Outpatient R KOTA NAPIER [facility] [id number] [facility] 2022-02-08 15:00:00 2022-02-08 16:01:16 Routine Visit Kota Napier [facility] 1.840.114 350.1.13.10 4.2.7.2.686 [id number] [facility] 2022-02-08 00:00:00 2022-02-08 00:00:00 Orders Only Doctor Unassigned, Talmage [facility] 1.2.840.114 350.1.13.10 4.2.7.2.686 [id number] [facility] 2022-02-08 00:00:00 2022-02-08 00:00:00 Patient Secure Msg Doctor Unassigned, Talmage [facility] 1.2840.114 350.1.13.10 4.2.7.2.686 [id number] [facility] 2022-02-07 08:15:00 2022-02-07 08:15:00 Outpatient KOTA ROSADO [facility] [id number] [facility] 2022-01-16 13:15:00 2022-01-16 13:15:00 Outpatient KOTA ROSADO [facility] [id number] [facility] 2022-01-07 13:30:00 2022-01-07 13:45:00 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 Visit 2, Adc Lab Janes Hernandez [facility] 1.2.840.114 350.1.13.10 4.2.7.2.686 [id number] [facility] 2022-01-07 13:30:00 2022-01-07 13:30:00 Outpatient R JANES HERNANDEZ [facility] [id number] [facility] 2021-12-26 00:00:00 2021-12-26 00:00:00 Outpatient VIVIEN_MILI [facility] [id number] [facility] 2021-12-21 13:44:00 2021-12-22 14:56:00 Outpatient U ANDRÉS PERAZA [facility] [id number] [facility] 2021-12-21 13:44:00 2021-12-22 14:56:00 Hospital Encounter Andrés Peraza [facility] 1..840.114 350.1.13.10 4.2.7.2.686 [id number] [facility] 2021-12-21 13:44:00 2021-12-22 14:56:00 Outpatient U ANDRÉS PERAZA [facility] [id number] [facility] 2021-12-19 13:15:00 2021-12-19 13:28:23 Outpatient KOTA ROSADO [facility] [id number] [facility] 2021-12-19 13:15:00 2021-12-19 13:28:23 Routine Visit Janes Hernandez Vien [facility] 1..840.114 350.1.13.10 4.2.7.2.686 [id number] [facility] 2021-12-18 00:00:00 2021-12-18 00:00:00 Patient Secure Msg Doctor Unassigned, Talmage [facility] 1.840.114 350.1.13.10 4.2.7.2.686 [id number] [facility] 2021-12-11 09:00:00 2021-12-11 10:00:00 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 Visit Ultrasound, Sybil Madden [facility] DIRECTOR OF UNDERGRADUATE ADMISSIONS [facility] 1..114 350.1.13.10 4.2.7.2.686 [id number] [facility] 2021-12-11 09:00:00 2021-12-11 09:00:00 Outpatient P [facility] [id number] [facility] 2021-12-11 09:00:00 2021-12-11 09:00:00 Outpatient P SYBIL WOODARD SANGEETA [facility] [id number] [facility] 2021-11-19 13:15:00 2021-11-19 14:40:48 Outpatient R KOTA NAPIER [facility] [id number] [facility] 2021-11-19 13:15:00 2021-11-19 14:40:48 Routine Visit Kota Napier [facility] 1.84.114 350.1.13.10 4.2.7.2.686 [id number] [facility] 2021-11-19 00:00:00 2021-11-19 00:00:00 Orders Only Doctor Unassigned, Talmage [facility] 1.84.114 350.1.13.10 4.2.7.2.686 [id number] [facility] 2021-10-23 13:00:00 2021-10-23 13:00:00 Outpatient R KOTA NAPIER [facility] [id number] [facility] 2021-10-11 00:00:00 2021-10-11 00:00:00 Letter (Out) Walt Khoury [facility] 1.2.840.114 350.1.13.10 4.2.7.2.686 [id number] [facility] 2021-10-10 00:00:00 2021-10-10 00:00:00 Patient Secure Msg Doctor Unassigned, Talmage [facility] 1.2.840.114 350.1.13.10 4.2.7.2.686 [id number] [facility] 2021-10-04 00:00:00 2021-10-04 00:00:00 Telephone Kota Napier [facility] 1.2.840.114 350.1.13.10 4.2.7.2.686 [id number] [facility] 2021-10-02 00:00:00 2021-10-02 00:00:00 Patient Secure Msg Doctor Unassigned, Talmage [facility] 1.2.840.114 350.1.13.10 4.2.7.2.686 [id number] [facility] 2021-10-01 15:15:00 2021-10-01 15:15:00 Outpatient MICHELLE SALINAS [facility] [id number] [facility] 2021-09-24 09:15:00 2021-09-24 09:30:00 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 Visit 2, Leigha Lab Janes Hernandez [facility] 1.2.840.114 350.1.13.10 4.2.7.2.686 [id number] [facility] 2021-09-24 09:15:00 2021-09-24 09:15:00 Outpatient JANES CARNEY [facility] [id number] [facility] 2021-09-24 08:00:00 2021-09-24 08:55:34 [facility]ine [facility] 1.2.114 350.1.13.10 4.2.7.2.686 [id number] [facility] 2021-09-24 00:00:00 2021-09-24 00:00:00 Orders Only Doctor Unassigned, Talmage [facility] 1..114 350.1.13.10 4.2.7.2.686 [id number] [facility] 2021-09-18 11:00:00 2021-09-18 11:00:00 Outpatient R JANES HERNANDEZ [facility] [id number] [facility] 2021-09-11 00:00:00 2021-09-11 00:00:00 Abstract Michelle Og [facility] DIRECTOR OF UNDERGRADUATE ADMISSIONS [facility] 1.840.114 350.1.13.10 4.2.7.2.686 [id number] [facility] 2021-09-10 08:38:20 2021-09-10 23:59:00 Hospital Encounter Walt Khoury [facility] 1.84.114 350.1.13.10 4.2.7.2.686 [id number] [facility] 2021-09-10 14:45:00 2021-09-10 15:18:40 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 Visit 1, [facility] Room Walt Khoury Hassan M [facility] DIRECTOR OF UNDERGRADUATE ADMISSIONS [facility] 1.284.114 350.1.13.10 4.2.7.2.686 [id number] [facility] 2021-09-10 08:37:19 2021-09-10 08:37:19 Hospital Encounter Walt Khoury [facility] 1.2.840.114 350.1.13.10 4.2.7.2.686 [id number] [facility] 2021-09-10 08:37:19 2021-09-10 08:37:19 Outpatient R WALT KHOURY [facility] [id number] [facility] 2021-09-03 00:00:00 2021-09-03 00:00:00 Transition of Care Tiarra Looney 1.2.840.114 350.1.13.10 4.2.7.2.686 [id number] [facility] 2021-08-30 10:04:00 2021-09-01 16:35:00 Inpatient X WALT KHOURY [facility] [id number] [facility] 2021-08-30 10:04:00 2021-09-01 16:35:00 Hospital Encounter Abhinav Madrigal Phillip Wu, Laura J [facility] 1.2840.114 350.1.13.10 4.2.7.2.686 [id number] [facility] 2021-08-29 00:00:00 2021-08-29 00:00:00 Patient Secure Msg Walt Flores Karon [facility] 1.2840.114 350.1.13.10 4.2.7.2.686 [id number] [facility] 2021-08-28 10:15:00 2021-08-28 13:33:00 Emergency X PABLO JARVIS [facility] ERT [id number] [facility] 2021-08-28 10:15:00 2021-08-28 13:33:00 Emergency Pablo Jarvis [facility] 1.2.840.114 350.1.13.10 4.2.7.2.686 [id number] [facility] 2021-08-22 13:15:00 2021-08-22 14:21:38 Outpatient R KOTA NAPIER [facility] [id number] [facility] 2021-08-22 13:15:00 2021-08-22 14:21:38 Routine Visit Kota Napier [facility] 1..840.114 350.1.13.10 4.2.7.2.686 [id number] [facility] 2021-08-22 13:15:00 2021-08-22 13:15:00 Outpatient R KOTA NAPIER [facility] [id number] [facility] 2021-08-22 00:00:00 2021-08-22 00:00:00 Orders Only Doctor Unassigned, Talmage [facility] 1.840.114 350.1.13.10 4.2.7.2.686 [id number] [facility] 2021-08-21 12:45:00 2021-08-21 12:45:00 Outpatient R MICHELLE OG [facility] [id number] [facility] 2021-08-17 00:00:00 2021-08-17 00:00:00 Telephone Kota Napier [facility] 1..840.114 350.1.13.10 4.2.7.2.686 [id number] [facility] 2021-08-13 11:00:00 2021-08-13 11:15:00 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 Visit Pob, Adc Lab Main Kota Napier [facility] 1.840.114 350.1.13.10 4.2.7.2.686 [id number] [facility] 2021-08-13 11:00:00 2021-08-13 11:00:00 Outpatient R [facility] [id number] [facility] 2021-08-13 11:00:00 2021-08-13 11:00:00 Outpatient R [facility] [id number] [facility] 2021-08-13 11:00:00 2021-08-13 11:00:00 Outpatient R ZACH NAPIEREN [facility] [id number] [facility] 2021-08-10 11:00:00 2021-08-10 11:00:00 Outpatient R [facility] [id number] [facility] 2021-08-10 11:00:00 2021-08-10 11:00:00 Outpatient R [facility] [id number] [facility] 2021-08-08 11:24:00 2021-08-08 16:22:00 Outpatient P KOTA NAPIER [facility] [id number] [facility] 2021-08-08 11:24:00 2021-08-08 16:22:00 Hospital Encounter Kota Napier Michael [facility] 1.2.840.114 350.1.13.10 4.2.7.2.686 [id number] [facility] 2021-08-08 11:45:00 2021-08-08 12:00:00 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 Visit Pob, Adc Lab Main Kota Napier [facility] 1.2.840.114 350.1.13.10 4.2.7.2.686 [id number] [facility] 2021-08-08 11:24:00 2021-08-08 11:24:00 Outpatient P KOTA NAPIER [facility] [id number] [facility] 2021-08-08 10:00:00 2021-08-08 11:13:12 Outpatient R KOTA NAPIER [facility] [id number] [facility] 2021-08-08 10:00:00 2021-08-08 11:13:12 Initial Visit Kota Napier [facility] 1.840.114 350.1.13.10 4.2.7.2.686 [id number] [facility] 2021-07-30 00:00:00 2021-07-30 00:00:00 Patient Secure Msg Michelle Og [facility] DIRECTOR OF UNDERGRADUATE ADMISSIONS [facility] 1.840.114 350.1.13.10 4.2.7.2.686 [id number] [facility] 2021 10:00:00 2021 10:00:00 Outpatient R KOTA NAPIER [facility] [id number] [facility] 2021-07-25 00:00:00 2021-07-25 00:00:00 Orders Only Doctor Unassigned, Talmage [facility] 1.840.114 350.1.13.10 4.2.7.2.686 [id number] [facility] 2021-07-24 12:45:00 2021-07-24 14:28:27 Outpatient R MICHELLE OG [facility] [id number] [facility] 2021-07-24 12:45:00 2021-07-24 14:28:27 Office Visit Michelle Og [facility] DIRECTOR OF UNDERGRADUATE ADMISSIONS [facility] 1.840.114 350.1.13.10 4.2.7.2.686 [id number] [facility] 2021-07-24 12:45:00 2021-07-24 12:45:00 Outpatient R MICHELLE OG [facility] [id number] [facility] 2021-07-04 08:30:00 2021-07-04 13:58:37 Outpatient R MACHELLE CELIS [facility] [id number] [facility] 2021-07-04 08:30:00 2021-07-04 13:58:37 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 Visit Lab, Ang-Rmchp Machelle Celis [facility] DIRECTOR OF UNDERGRADUATE ADMISSIONS [facility] .840.114 350.1.13.10 4.2.7.2.686 [id number] [facility] 2021-07-04 08:30:00 2021-07-04 13:58:37 Outpatient MACHELLE MELARA [facility] [id number] [facility] 2021-07-03 03:41:00 2021-07-03 03:41:00 Outpatient Rutledge_L [facility] [id number] [facility] 2021-07-03 00:00:00 2021-07-03 00:00:00 Telephone Michelle Og [facility] DIRECTOR OF UNDERGRADUATE ADMISSIONS [facility] CHILD [facility] .840.114 350.1.13.10 4.2.7.2.686 [id number] [facility] 2021-07-02 13:15:00 2021-07-02 14:07:04 Outpatient MICHELLE SALINAS [facility] [id number] [facility] 2021-07-02 13:15:00 2021-07-02 14:07:04 Office Visit Michelle Og [facility] DIRECTOR OF UNDERGRADUATE ADMISSIONS [facility] .840.114 350.1.13.10 4.2.7.2.686 [id number] [facility] 2021-07-01 09:40:00 2021-07-01 10:24:52 Outpatient SHAN CHENG [facility] [id number] [facility] 2021-07-01 09:40:00 2021-07-01 10:24:52 Urgent Care Shan Harry Jessica [facility] 1.840.114 350.1.13.10 4.2.7.2.686 [id number] [facility] 2021-02-02 15:00:00 2021-02-02 15:00:00 Outpatient R MICHELLE OG [facility] [id number] [facility] 2020-11-10 12:45:21 2020-11-10 13:04:57 [facility] Michelle Og [facility] DIRECTOR OF UNDERGRADUATE ADMISSIONS [facility] 1.840.114 350.1.13.10 4.2.7.2.686 [id number] [facility] 2020-11-10 13:00:00 2020-11-10 13:00:00 Outpatient R MICHELLE OG [facility] [id number] [facility] 2020-11-10 00:00:00 2020-11-10 00:00:00 Orders Only Doctor Unassigned, Talmage [facility] 1.840.114 350.1.13.10 4.2.7.2.686 [id number] [facility] 2020-11-09 13:00:00 2020-11-09 13:00:00 Outpatient R [facility] [id number] [facility] 2020-08-28 15:45:00 2020-08-28 15:45:00 Outpatient R MICHELLE OG [facility] [id number] [facility] 2020-08-28 15:45:00 2020-08-28 15:45:00 Outpatient R MICHELLE OG [facility] [id number] [facility] 2020-08-24 00:00:00 2020-08-24 00:00:00 Telephone Michelle Og [facility] DIRECTOR OF UNDERGRADUATE ADMISSIONS [facility] .840.114 350.1.13.10 4.2.7.2.686 [id number] [facility] 2020-08-17 14:24:26 2020-08-17 14:39:26 Nurse Visit Visit, Michelle Natarajan [facility] DIRECTOR OF UNDERGRADUATE ADMISSIONS [facility] 1.84.114 350.1.13.10 4.2.7.2.686 [id number] [facility] 2020-08-17 14:30:00 2020-08-17 14:30:00 Outpatient R [facility] [id number] [facility] 2020-08-16 13:30:00 2020-08-16 13:30:00 Outpatient R [facility] [id number] [facility] 2020-08-15 00:00:00 2020-08-15 00:00:00 Patient Outreach Yaakov Diaz [facility] 1.84.114 350.1.13.10 4.2.7.2.686 [id number] [facility] 2020-05-24 12:49:22 2020-05-24 13:10:03 Nurse Visit Visit, Michelle Natarajan [facility] DIRECTOR OF UNDERGRADUATE ADMISSIONS [facility] .84.114 350.1.13.10 4.2.7.2.686 [id number] [facility] 2020-05-24 13:00:00 2020-05-24 13:00:00 Outpatient R [facility] [id number] [facility] 2020-05-24 13:00:00 2020-05-24 13:00:00 Outpatient R MICHELLE OG [facility] [id number] [facility] 2020-03-01 12:54:05 2020-03-01 13:10:54 Nurse Visit Visit, Michelle Natarajan [facility] DIRECTOR OF UNDERGRADUATE ADMISSIONS [facility] 1.840.114 350.1.13.10 4.2.7.2.686 [id number] [facility] 2020-03-01 13:00:00 2020-03-01 13:00:00 Outpatient R [facility] [id number] [facility] 2019-12-08 14:14:17 2019-12-08 15:41:02 Office Visit Michelle Og [facility] DIRECTOR OF UNDERGRADUATE ADMISSIONS [facility] 1..840.114 350.1.13.10 4.2.7.2.686 [id number] [facility] 2019-12-08 14:15:00 2019-12-08 14:15:00 Outpatient R MICHELLE OG [facility] [id number] [facility] 2019-11-30 13:15:00 2019-11-30 13:15:00 Outpatient R MICHELLE OG [facility] [id number] [facility] 2019-09-07 09:51:25 2019-09-07 10:45:51 Nurse Visit Visit, Ang-Rmchp Nurse Michelle Og [facility] DIRECTOR OF UNDERGRADUATE ADMISSIONS [facility] 1..840.114 350.1.13.10 4.2.7.2.686 [id number] [facility] 2019-09-07 10:00:00 2019-09-07 10:00:00 Outpatient R [facility] [id number] [facility] 2019-09-07 10:00:00 2019-09-07 10:00:00 Outpatient R MICHELLE OG [facility] [id number] [facility] 2019-09-07 00:00:00 2019-09-07 00:00:00 Orders Only Doctor Unassigned, Talmage [facility] 1..840.114 350.1.13.10 4.2.7.2.686 [id number] [facility] 2019-08-26 09:00:00 2019-08-26 09:00:00 Outpatient R [facility] [id number] [facility] 2019-08-26 00:00:00 2019-08-26 00:00:00 Telephone Michelle Og [facility] DIRECTOR OF UNDERGRADUATE ADMISSIONS [facility] 1.2.840.114 350.1.13.10 4.2.7.2.686 [id number] 107 [id number] [facility] 2019-08-25 07:58:46 2019-08-25 08:52:37 Telemedici ne Visit Michelle Og [facility] DIRECTOR OF UNDERGRADUATE ADMISSIONS [facility] 1.2.840.114 350.1.13.10 4.2.7.2.686 [id number] [facility] 2019-08-25 08:00:00 2019-08-25 08:00:00 Outpatient R MICHELLE OG [facility] [id number] [facility] 2019-08-23 00:00:00 2019-08-23 00:00:00 Telephone Michelle Og [facility] DIRECTOR OF UNDERGRADUATE ADMISSIONS [facility] 1..840.114 350.1.13.10 4.2.7.2.686 [id number] 107 [id number] [facility] Results Test Description Test Time Test Comments Results Result Co mments Source [facility] [id number] 22:01:00* Test Item Value Reference Range Interpretation Comme nts POCT PREG (test code = 1605) Negative On board controls acceptable with C Line (test code = 3574) Yes POCT PREG LOT # (test code = 3575) POCT PREG TEST DATE ( test code = 3576) [facility] [id number] 15:13:00* Test Item Value Reference Range Interpretation Comme nts POCT PREG (test code = 1605) Negative On board controls acceptable with C Line (test code = 3574) Yes POCT PREG LOT # (test code = 3575) POCT PREG TEST DATE ( test code = 3576) [facility] [id number] 15:13:00* Test Item Value Reference Range Interpretation Comme nts POCT PREG (test code = 1605) Negative On board controls acceptable with C Line (test code = 3574) Yes POCT PREG LOT # (test code = 3575) POCT PREG TEST DATE ( test code = 3576) [facility]:52:33* Test Item Value Reference Range Interpretation Comme nts RPR (Quantitative) (test cod e = 90569-5) 1:64 Nonreactive A Lab Interpretation (test cod e = 99048-6) [facility] [id number] 21:52:33* Test Item Value Reference Range Interpretation Comme nts T. pallidum Particle Agglutination (test code = 9387757245) Reactive Nonreactive A QUINCY (test code = QUINCY) Based on syphilis IgG/IgM, RPR, and TPPA results, probable active T. pallidum infection. ? Lab Interpretation (test code = 78739-8) [facility] 21:52:33* Test Item Value Reference Range Interpretation Comme nts RPR (Quantitative) (test cod e = 79234-8) 1:64 Nonreactive A Lab Interpretation (test cod e = 53728-9) [facility] [id number] 21:52:33* Test Item Value Reference Range Interpretation Comme nts T. pallidum Particle Agglutination (test code = 1872636272) Reactive Nonreactive A QUINCY (test code = QUINCY) Based on syphilis IgG/IgM, RPR, and TPPA results, probable active T. pallidum infection. ? Lab Interpretation (test code = 66764-2) [id number] 16:16:07* Test Item Value Reference Range Interpretation Comme nts Syphilis IgG/IgM (test code = 93398-8) Reactive Non-reactive A QUINCY (test code = QUINCY) Non-reactive - No serologic evidence of T. pallidum infection. Cannot exclude incubating or early syphilis. Submit a second specimen in 2-4 weeks if syphilis is clinically suspected. Equivocal - Further testing to follow. Reactive - Further testing to follow. Lab Interpretation (test code = 00394-1) [id number] 16:16:07* Test Item Value Reference Range Interpretation Comme nts Syphilis IgG/IgM (test code = 15711-4) Reactive Non-reactive A QUINCY (test code = QUINCY) Non-reactive - No serologic evidence of T. pallidum infection. Cannot exclude incubating or early syphilis. Submit a second specimen in 2-4 weeks if syphilis is clinically suspected. Equivocal - Further testing to follow. Reactive - Further testing to follow. Lab Interpretation (test code = 57955-2) [facility] WITH [id number] 10:23:56* Test Item Value Reference Range Interpretation Comme nts HIV Semi-quantitative (test code = 86559-7) 0.08 Negative QUINCY (test code = QUINCY) Non-reactive for HIV-1 antigen and HIV-1/HIV-2 antibodies. ?No laboratory evidence of HIV infection. ?Repeat in 2-4 weeks if acute HIV infection is suspected. [facility] WITH [id number] 10:23:56* Test Item Value Reference Range Interpretation Comme nts HIV Semi-quantitative (test code = 00933-8) 0.08 Negative QUINCY (test code = QUINCY) Non-reactive for HIV-1 antigen and HIV-1/HIV-2 antibodies. ?No laboratory evidence of HIV infection. ?Repeat in 2-4 weeks if acute HIV infection is suspected. [facility] [id number] 19:15:00* Test Item Value Reference Range Interpretation Comme nts POCT PREG (test code = 1605) Negative On board controls acceptable with C Line (test code = 3574) Yes POCT PREG LOT # (test code = 3575) POCT PREG TEST DATE ( test code = 3576) [facility] [id number] 19:15:00* Test Item Value Reference Range Interpretation Comme nts POCT PREG (test code = 1605) Negative On board controls acceptable with C Line (test code = 3574) Yes POCT PREG LOT # (test code = 3575) POCT PREG TEST DATE ( test code = 3576) [facility] with [id number] 09:58:02* Test Item Value Reference Range Interpretation Comme nts WBC (test code = 6690-2) See_Comment [Automated messa ge] The system which generated this result transmitted reference range: 4.30 - 11.10 10*3/?L. The reference range was not used to interpret this result as normal/abnormal. RBC (test code = 789-8) See_Comment L [Automated messa ge] The system which generated this result transmitted reference range: 3.93 - 5.25 10*6/?L. The reference range was not used to interpret this result as normal/abnormal. HGB (test code = 718-7) 9.3 g/dL 11.6-15 L HCT (test code = 4544-3) 27.1 % 35.7-45.2 L MCV (test code = 787-2) 96.4 fL 80.6-95.5 H MCH (test code = 785-6) 33.1 pg 25.9-32.8 H MCHC (test code = 786-4) 34.3 g/dL 31.6-35.1 RDW-SD (test code = 11608-6) 42.7 fL 39-49.9 RDW-CV (test code = 788-0) 12.4 % 12-15.5 PLT (test code = 777-3) See_Comment L [Automated messa ge] The system which generated this result transmitted reference range: 166 - 358 10*3/?L. The reference range was not used to interpret this result as normal/abnormal. MPV (test code = 84478-5) 10.0 fL 9.5-12.9 NRBC/100 WBC (test code = 2377427848) See_Comment [Automated me ssage] The system which generated this result transmitted reference range: 0.0 - 10.0 /100 WBCs. The reference range was not used to interpret this result as normal/abnormal. NRBC x10^3 (test code = 4916805245) See_Comment [Automated messa ge] The system which generated this result transmitted reference range: 10*3/?L. The reference range was not used to interpret this result as normal/abnormal. GRAN MAT (NEUT) % (test code = 770-8) 61.5 % IMM GRAN % (test code = 9201603951) 0.40 % LYMPH % (test code = 736-9) 29.7 % MONO % (test code = 5905-5) 8.3 % EOS % (test code = 713-8) 0.0 % BASO % (test code = 706-2) 0.1 % GRAN MAT x10^3(ANC) (test code = 0693224608) 4.45 10*3/uL 1.88-7.09 IMM GRAN x10^3 (test code = 1864097429) 0.03 10*3/uL 0-0.06 LYMPH x10^3 (test code = 731-0) 2.15 10*3/uL 1.32-3.29 MONO x10^3 (test code = 742-7) 0.60 10*3/uL 0.33-0.92 EOS x10^3 (test code = 711-2) 0.03-0.39 L BASO x10^3 (test code = 704-7) 0.01-0.07 Lab Interpretation (test code = 41614-9) [facility] - [id number] 08:11:36* Test Item Value Reference Range Interpretation Comme nts RPR (Qualitative) (test code = 46102-6) Nonreactive Nonreactive Lab Interpretation (test cod e = 81333-8) Normal [facility] IMMUNE [id number] 01:06:41* Test Item Value Reference Range Interpretation Comme nts RHIG CANDIDATE? (test code = 5055) No- see comment Patient is not a candidate for RhIg- Patient is Rh Positive.Performed at [facility] Laboratory Services - [facility] Blood [address] [place] [id number] Free: [phone] No. [id number] [facility] CenterHEPATITIS B SURFACE [id number] 20:29:54 * Test Item Value Reference Range Interpretation Comme nts HBsAg Semi-Quantitative (boris t code = 5195-3) Negative Negative [facility] and Screen - ONCE [id number] 14:07:26* Test Item Value Reference Range Interpretation Comme nts ABO & RH (test code = 20) O Positive Performed at [facility] Laboratory Services [facility] Blood [address] [place], [place] [address]Toll Free: [phone] No. [id number] IAT (test code = 1185) Negative Performed at [facility] Laboratory [facility] - [facility] Blood [place] [id number] Free: [phone] No. [id number] [facility] CenterLACTATE [id number] 13:49:38* Test Item Value Reference Range Interpretation Comme nts LDH (test code = 8011901620) 222 U/L 120-246 Lab Interpretation (test cod e = 19897-1) Normal [facility] WITH [id number] 13:35:36* Test Item Value Reference Range Interpretation Comme nts WBC (test code = 6690-2) See_Comment [Automated messa ge] The system which generated this result transmitted reference range: 4.30 - 11.10 10*3/?L. The reference range was not used to interpret this result as normal/abnormal. RBC (test code = 789-8) See_Comment L [Automated messa ge] The system which generated this result transmitted reference range: 3.93 - 5.25 10*6/?L. The reference range was not used to interpret this result as normal/abnormal. HGB (test code = 718-7) 11.0 g/dL 11.6-15 L HCT (test code = 4544-3) 31.7 % 35.7-45.2 L MCV (test code = 787-2) 94.9 fL 80.6-95.5 MCH (test code = 785-6) 32.9 pg 25.9-32.8 H MCHC (test code = 786-4) 34.7 g/dL 31.6-35.1 RDW-SD (test code = 42823-2) 44.1 fL 39-49.9 RDW-CV (test code = 788-0) 12.8 % 12-15.5 PLT (test code = 777-3) See_Comment L [Automated messa ge] The system which generated this result transmitted reference range: 166 - 358 10*3/?L. The reference range was not used to interpret this result as normal/abnormal. MPV (test code = 35335-1) 9.4 fL 9.5-12.9 L NRBC/100 WBC (test code = 9110279452) See_Comment [Automated me ssage] The system which generated this result transmitted reference range: 0.0 - 10.0 /100 WBCs. The reference range was not used to interpret this result as normal/abnormal. NRBC x10^3 (test code = 4435778202) See_Comment [Automated messa ge] The system which generated this result transmitted reference range: 10*3/?L. The reference range was not used to interpret this result as normal/abnormal. GRAN MAT (NEUT) % (test code = 770-8) 61.9 % IMM GRAN % (test code = 0847138216) 0.50 % LYMPH % (test code = 736-9) 30.1 % MONO % (test code = 5905-5) 7.3 % EOS % (test code = 713-8) 0.0 % BASO % (test code = 706-2) 0.2 % GRAN MAT x10^3(ANC) (test code = 7810228379) 3.40 10*3/uL 1.88-7.09 IMM GRAN x10^3 (test code = 0517451144) 0.03 10*3/uL 0-0.06 LYMPH x10^3 (test code = 731-0) 1.65 10*3/uL 1.32-3.29 MONO x10^3 (test code = 742-7) 0.40 10*3/uL 0.33-0.92 EOS x10^3 (test code = 711-2) 0.03-0.39 L BASO x10^3 (test code = 704-7) 0.01-0.07 Lab Interpretation (test code = 58504-8) Abnormal [facility] 1/2 AG-AB WITH [id number] 13:32:34* Test Item Value Reference Range Interpretation Comme nts HIV Semi-quantitative (test code = 84425-2) Negative Negative QUINCY (test code = QUINCY) Non-reactive for HIV-1 antigen and HIV-1/HIV-2 antibodies. ?No laboratory evidence of HIV infection. ?Repeat in 2-4 weeks if acute HIV infection is suspected. [facility] CenterURIC [id number] 13:31:54* Test Item Value Reference Range Interpretation Comme nts URIC ACID (test code = 9740528155) 5.9 mg/dL 2.9-6 Lab Interpretation (test cod e = 46825-5) Normal [facility] CenterCOMP. METABOLIC PANEL (79569)2022-03-13 12:52:13* Test Item Value Reference Range Interpretation Comme nts NA (test code = 1673877615) 135 mmol/L 135-145 K (test code = 1486829103) 3.7 mmol/L 3.5-5 CL (test code = 1185102191) 104 mmol/L 98-108 CO2 TOTAL (test code = 8155259968) 20 mmol/L 23-31 L AGAP (test code = 9842624941) 2-16 BUN (test code = 4241636670) 6 mg/dL 7-23 L GLUCOSE (test code = 0642930441) 67 mg/dL 70-110 L CREATININE (test code = 1849311394) 0.60 mg/dL 0.5-1.04 TOTAL BILI (test code = 5831660554) 0.6 mg/dL 0.1-1.1 CALCIUM (test code = 8375648427) 8.7 mg/dL 8.6-10.6 T PROTEIN (test code = 8020644051) 6.4 g/dL 6.3-8.2 ALBUMIN (test code = 6909237468) 3.8 g/dL 3.5-5 ALK PHOS (test code = 3145452173) 200 U/L 34-122 H ALTv (test code = 1742-6) 13 U/L 5-35 AST(SGOT) (test code = 1624484863) 23 U/L 13-40 eGFR (test code = 6521125512) mL/min/1.73m2 QUINCY (test code = QUINCY) Association of [...] or abnormalities in imaging tests). Lab Interpretation (test code = 01360-9) Abnormal [facility] URINALYSIS W/O SPECIFIC [id number] 22:15:00* Test Item Value Reference Range Interpretation Comme nts POCT PH U (test code = 3254) N/A 5-8 POCT U LEUK EST (test code = 3263) N/A Negative - Negative POCT U NIT (test code = 3262) N/A Negative - Negati ve POCT U PROT (test code = 3259) Trace Negative - Negat kevin POCT U GLU (test code = 3256) 1+ Negative - Negati ve POCT U KETONE (test code = 3258) Negative Negative - Neg ative POCT U BLD (test code = 3257) Negative Negative - Negati ve [facility] URINALYSIS W/O SPECIFIC [id number] 20:35:00* Test Item Value Reference Range Interpretation Comme nts POCT PH U (test code = 3254) N/A 5-8 POCT U LEUK EST (test code = 3263) N/A Negative - Negative POCT U NIT (test code = 3262) N/A Negative - Negati ve POCT U PROT (test code = 3259) Negative Negative - Negat kevin POCT U GLU (test code = 3256) 2+ Negative - Negati ve POCT U KETONE (test code = 3258) N/A Negative - Neg ative POCT U BLD (test code = 3257) N/A Negative - Negati ve [facility] - [id number] 09:12:19* Test Item Value Reference Range Interpretation Comme nts RPR (Qualitative) (test code = 68551-5) Nonreactive Nonreactive Lab Interpretation (test cod e = 57639-9) Normal [facility] CenterPRENATAL WORKUP, BLOOD [id number] 03:44:34 * Test Item Value Reference Range Interpretation Comme nts ABO & RH (test code = 20) O POSITIVE Performed at [facility] Laboratory Services [facility] Blood [address] Free: [phone] No. [id number] IAT (test code = 1185) Negative Performed at [facility] Laboratory [facility] Blood [address] Free: [phone] No. [id number] [facility]HIV 1/2 AG-AB WITH [id number] 23:52:50* Test Item Value Reference Range Interpretation Comme nts HIV Semi-quantitative (test code = 28587-8) Negative Negative QUINCY (test code = QUINCY) Non-reactive for HIV-1 antigen and HIV-1/HIV-2 antibodies. ?No laboratory evidence of HIV infection. ?Repeat in 2-4 weeks if acute HIV infection is suspected. [facility] CenterGLUCOSE 1 HOUR POST [id number] 23:11:22* Test Item Value Reference Range Interpretation Comme nts GLUC 1 HR (test code = 6020581934) 97 mg/dL 120-170 L Lab Interpretation (test cod e = 92614-7) Abnormal [facility] WITH [id number] 20:45:41* Test Item Value Reference Range Interpretation Comme nts WBC (test code = 6690-2) See_Comment [Automated messa ge] The system which generated this result transmitted reference range: 4.30 - 11.10 10*3/?L. The reference range was not used to interpret this result as normal/abnormal. RBC (test code = 789-8) See_Comment L [Automated messa ge] The system which generated this result transmitted reference range: 3.93 - 5.25 10*6/?L. The reference range was not used to interpret this result as normal/abnormal. HGB (test code = 718-7) 10.0 g/dL 11.6-15 L HCT (test code = 4544-3) 29.7 % 35.7-45.2 L MCV (test code = 787-2) 96.7 fL 80.6-95.5 H MCH (test code = 785-6) 32.6 pg 25.9-32.8 MCHC (test code = 786-4) 33.7 g/dL 31.6-35.1 RDW-SD (test code = 09155-4) 42.8 fL 39-49.9 RDW-CV (test code = 788-0) 12.4 % 12-15.5 PLT (test code = 777-3) See_Comment [Automated messa ge] The system which generated this result transmitted reference range: 166 - 358 10*3/?L. The reference range was not used to interpret this result as normal/abnormal. MPV (test code = 41259-7) 9.3 fL 9.5-12.9 L NRBC/100 WBC (test code = 0104946032) See_Comment [Automated [employer] ssage] The system which generated this result transmitted reference range: 0.0 - 10.0 /100 WBCs. The reference range was not used to interpret this result as normal/abnormal. NRBC x10^3 (test code = 1552232293) See_Comment [Automated messa ge] The system which generated this result transmitted reference range: 10*3/?L. The reference range was not used to interpret this result as normal/abnormal. GRAN MAT (NEUT) % (test code = 770-8) 70.5 % IMM GRAN % (test code = 1193070776) 0.30 % LYMPH % (test code = 736-9) 21.8 % MONO % (test code = 5905-5) 6.7 % EOS % (test code = 713-8) 0.6 % BASO % (test code = 706-2) 0.1 % GRAN MAT x10^3(ANC) (test code = 2303309425) 4.83 10*3/uL 1.88-7.09 IMM GRAN x10^3 (test code = 5889196770) 0-0.06 LYMPH x10^3 (test code = 731-0) 1.49 10*3/uL 1.32-3.29 MONO x10^3 (test code = 742-7) 0.46 10*3/uL 0.33-0.92 EOS x10^3 (test code = 711-2) 0.04 10*3/uL 0.03-0.39 BASO x10^3 (test code = 704-7) 0.01-0.07 Lab Interpretation (test code = 41810-5) Abnormal [facility] Notes Date/Time Note Provider Source 2024-06-07 16:15:52 Attempted to contact patient, scheduled appointment for 06/16/24 at 2:45 pm. CORPORATE RECRUITER Sancho Turcios [facility] 2024-04-19 09:45:53 Notified the patient of her positive STI results Chlamydia. Notified the patient her medication has been sent to her pharmacy on file. Educated patient she should complete the entire course, advised patient to practice safe sex practices and to remain abstinent for at least 1-2 weeks post treatment. Patient desires to have partner treated. Name of partner:Eddie Offered std pamphlet for partner education. Patient declinedstd pamphlet to be mailed to partner. Advised patient on HIV testing if she has not recently been tested. Advised DAHIANA appointment in 3 months. Pt verbalized understanding. ELLUS Jacques RN [facility] 2024-04-19 09:31:33 3rd attempt no answer. Letter mailed. Brnadie Jacques RN 04/19/24 9:31 AM CORPORATE RECRUITER Brandie Jacques RN [facility] 2024-04-16 14:31:39 2nd attempt to call patient, message states person can not accept calls at this time, will try again at a later time. [facility] 2024-04-16 09:27:02 Attempted to call patient, message states not accepting calls at this time, will try again at a later time. [facility] 2024-04-16 08:46:36 Please make pt aware that she is positive for chlamydia. Medication has been sent to pharmacy. Needs to abstain for at least 2 weeks. RTC in 3 months for recheck. Needs to inform partner so they may receive treatment. Partner may receive doxycycline 100mg PO BID x 7 days, No refills. ANJALI Hanley 04/16/2024 8:51 AM [facility] 2023-09-18 08:00:18 Pt informed via mychart. [facility] 2023-09-18 07:52:06 Please call patient and let her know RPR is decreasing appropriately after treatment. She needs to come back in 3 months for repeat testing to make sure is continues to drop. [facility] 2023-06-12 10:00:51 Called patient with information on self-pay prices. ELLUS Turcios [facility]
[2024-08-03 15:27] LABS: Absolute Lymphocytes (CBC) 1.6 K/uL (0.7-4.9); Absolute Monocytes 0.2 K/uL (0.1-1.3); Absolute Neutrophil 1.2 K/uL (1.8-8.0); Basophils % 0.3 % (0-1.3); Eosinophils % 0.9 % (0-4.4); Hematocrit 34.4 % (36.0-45.0); Hemoglobin 11.9 g/dL (12.0-15.0); Lymphocytes % 52.7 % (15.3-44.8); MCH 32.6 pg (27.0-35.0); MCHC 34.5 g/dL (32.0-36.0); MCV 94.4 fL (80-100); MPV 6.6 fL (7.6-11.3); Monocytes % 5.8 % (3.3-12.3); Neutrophils % 40.3 % (41.7-73.7); Nucleated Red Blood Cells % 0.1 % (0-0); Platelets 237 thou/uL (152-406); RBC Red Blood Cell Count 3.64 M/uL (3.86-4.86)
[2024-08-03 15:35] LABS: Specific Gravity 1.027 (1.005-1.030)
[2024-08-03 15:36] LABS: Specific Gravity 1.027 (1.005-1.030); Urine Bacteria None Seen /HPF (<20); Urine Bilirubin NEGATIVE (Negative); Urine Blood Negative (Negative); Urine Clarity Extremely Turbid (Clear); Urine Color Yellow (Yellow); Urine Crystals Unidentified Few /HPF (None Seen); Urine Culture Reflex Order REFLEXED; Urine Glucose NEGATIVE (Negative); Urine Ketones NEGATIVE (Negative); Urine Microscopic Reflex YN ORDER UMIC; Urine Mucus 4+ /HPF (None Seen); Urine Nitrite NEGATIVE (Negative); Urine Protein 1+ (Negative); Urine Urobilinogen Normal (Normal); Urine WBC Clump Occasional /HPF (None Seen); Urine Yeast (Budding) Trace /HPF (None Seen)
[2024-08-03 15:44] LABS: Albumin 3.9 g/dL (3.4-5.0); Anion Gap 7.4 mEq/L (5.0-15.0); Bilirubin Total 0.4 mg/dL (0.2-1.0); Globulin 3.9 g/dL (2.3-3.5); Potassium 3.4 mEq/L (3.5-5.1); Protein, Total 7.8 g/dL (6.4-8.2)
[2024-08-03] MEDS ORDERED: CEFTRIAXONE 500 MG/VIAL ONE (18:18)
[2024-08-03] MEDS ORDERED: ONDANSETRON 4 MG (ODT) TAB ONE (18:18)
[2024-08-03] MEDS ORDERED: AZITHROMYCIN 250 MG TAB ONE (18:18)
[2024-08-03] MEDS ORDERED: metroNIDAZOLE 500 MG TABLET ONE (18:19)
[2024-08-03] MEDS ORDERED: LIDOCAINE 1% MPF 2 ML AMPULE ONE (18:20)
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
[2024-08-03 19:02] VITALS: BP 131/86; TEMP 98; O2SAT 97
== END 2024-08-03 18:45 | disposition home or self-care (01) ==
LOC: ER 14:16
DX: Z04.41 Encounter for examination and observation following alleged adult rape (principal); R11.2 Nausea with vomiting, unspecified
CPT/HCPCS: 87088; 85025; 81001; 87086; 36415; 81025; 80053; 96372; 99284; Q0162